=== PATIENT | female | born 1940 | race African-American/Black ===

== ENCOUNTER 2016-06-21 17:38 | Emergency (ER) | payer MEDICARE, BC ==
[~2016-06-21] VITALS: Ht 165.1 cm; Wt 54.4 kg
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
--- NOTE | 2016-06-21 19:22 | NUR ---
TON AT BS.
--- NOTE | 2016-06-21 19:38 | NUR ---
PT TAKEN TO CT.
--- NOTE | 2016-06-21 20:43 | NUR ---
Patient discharged to home in stable condition. Written and verbal after care instructions given. Patient verbalizes understanding of instruction. ambulatory with a steady gait noted. pt family members at bedside to take pt home.
[2016-06-21 20:45] VITALS: BP 137/73
== END 2016-06-21 20:46 | disposition home or self-care (01) ==
LOC: ER 17:47
DX: S06.0X9A Concussion with loss of consciousness of unspecified duration, initial encounter (principal); S20.211A Contusion of right front wall of thorax, initial encounter; S40.011A Contusion of right shoulder, initial encounter; R51 Headache; I10 Essential (primary) hypertension; V49.49XA Driver injured in collision with other motor vehicles in traffic accident, initial encounter; Y93.89 Activity, other specified; Y92.89 Other specified places as the place of occurrence of the external cause; Y99.9 Unspecified external cause status
CPT/HCPCS: 70450-TC; 71010-TC; 73030-TC; A4606; Z7610

== ENCOUNTER 2021-07-06 01:24 | Emergency (ER) | payer BC, MEDICARE, OTHER ==
[~2021-07-06] VITALS: Ht 165.1 cm; Wt 61.2 kg
[2021-07-06 01:38] VITALS: BP 143/70
--- NOTE | 2021-07-06 03:04 | NUR ---
[facility] CALLED FOR BLS TRANPORT BACK HOME PER KOESTEFANIA - ETA OF 30-45 MIN
--- NOTE | 2021-07-06 03:55 | NUR ---
Patient discharged to home in stable condition. Written and verbal after care instructions given. Patient verbalizes understanding of instruction. Picked up by [facility] ambulance for continued oxygen therapy.
== END 2021-07-06 04:02 | disposition home or self-care (01) ==
LOC: ER 01:28
DX: J84.10 Pulmonary fibrosis, unspecified (principal); Z99.81 Dependence on supplemental oxygen

== ENCOUNTER 2021-09-27 12:54 | Inpatient (IN) | payer OTHER ==
[~2021-09-27] VITALS: Ht 162.6 cm; Wt 64.9 kg
[2021-09-27 14:01] LABS: BASOPHILS % (AUTO) 0.3 % (0.0-2.0); HEMATOCRIT 34 % (33-45); HEMOGLOBIN 10.6 g/dL (11.5-14.8); LYMPHOCYTES # (AUTO) 0.6 K/uL (0.8-4.8); LYMPHOCYTES % (AUTO) 11.7 % (20.0-44.0); MEAN CORPUSCULAR HGB CONC 31 g/dl (31.0-36.0); MEAN CORPUSCULAR VOLUME 92 fL (82-100); MONOCYTES # (AUTO) 0.3 K/uL (0.1-1.30); MONOCYTES % (AUTO) 5.7 % (2.0-12.0); NEUTROPHILS # (AUTO) 4.2 K/uL (1.8-8.9); NEUTROPHILS % (AUTO) 79.3 % (43.0-81.0); PLATELET COUNT (AUTO) 128 K/uL (150-450); RED BLOOD CELL COUNT(AUTO) 3.67 MIL/uL (4.0-5.2); WHITE BLOOD COUNT (AUTO) 5.3 K/uL (4.3-11.0)
[2021-09-27 14:12] LABS: CALCIUM, SERUM 8.3 mg/dL (8.5-10.1); CARBON DIOXIDE 23 mmol/L (21-32); CHLORIDE 106 mmol/L (98-107); CREATININE 2.8 mg/dL (0.6-1.3); GLUCOSE 112 mg/dL (74-106); POTASSIUM 4.5 mmol/L (3.5-5.1); SODIUM SERUM 138 mmol/L (136-145); UREA NITROGEN, BLOOD 41 mg/dL (7-18)
--- NOTE | 2021-09-27 14:51 | NUR ---
DAUGHTER BRIANNE AT BEDSIDE. LEFT CONTACT # [phone]
--- NOTE | 2021-09-27 15:11 | NUR ---
COVID SWAB COLLECTED AND SENT TO LAB
[2021-09-27] MEDS ORDERED: FAMO-130 PO (15:19)
[2021-09-27] MEDS ORDERED: BUDE10.2 INH (15:19)
[2021-09-27] MEDS ORDERED: ASPI-1169 PO (15:19)
[2021-09-27] MEDS ORDERED: LATA2.5D15 EACHEYE (15:19)
[2021-09-27] MEDS ORDERED: ATOR40TA PO (15:19)
[2021-09-27] MEDS ORDERED: ALLO100T PO (15:19)
[2021-09-27] MEDS ORDERED: FURO40TA5 PO (15:19)
[2021-09-27] MEDS ORDERED: DOCU-141 PO (15:19)
--- NOTE | 2021-09-27 15:24 | NUR ---
MOVE SHEET SUBMITTED.
[2021-09-27] MEDS ORDERED: FUROSEMIDE 40 MG/4 ML VIAL IV ONE (15:30)
[2021-09-27] MEDS ORDERED: FUROSEMIDE 40 MG/4 ML VIAL ONE (15:33)
[2021-09-27] MEDS ORDERED: ALBUTEROL FS 2.5 MG/0.5 ML VIAL.NEB NEB PRN (17:30)
[2021-09-27] MEDS ORDERED: ONDANSETRON HCL/PF - ER 4 MG/2 ML VIAL IV ONE (17:30)
[2021-09-27] MEDS ORDERED: TRAMADOL HCL 50 MG TABLET PO ONE (17:30)
[2021-09-27] MEDS ORDERED: IPRATROPIUM/ALBUTEROL INHALER IH SCH (18:00)
[2021-09-27] MEDS ORDERED: ONDANSETRON HCL/PF 4 MG/2 ML VIAL ONE (18:32)
[2021-09-27] MEDS ORDERED: TRAMADOL HCL 50 MG TABLET ONE (18:37)
[2021-09-27] MEDS: LATANOPROST EYE DROP 0.005% 2.5 ML BOTTLE EACHEYE SCH (19:05)
[2021-09-27 20:00] VITALS: BP 109/63
--- NOTE | 2021-09-27 21:11 | NUR ---
REPORT GIVEN TO BRII FioreW RN FOR BRIGHT
[2021-09-27] MEDS ORDERED: methylPREDNISolone SOD SUCC 40 MG/ML VIAL ONE (21:14)
[2021-09-27] MEDS ORDERED: HEPARIN SODIUM, PORCINE 5000 UNITS/1 ML VIAL ONE (21:14)
[2021-09-27] MEDS: methylPREDNISolone SOD SUCC 40 MG/ML VIAL IV SCH (21:22)
[2021-09-27] MEDS: HEPARIN SODIUM, PORCINE 5000 UNITS/1 ML VIAL SQ SCH (21:25)
--- NOTE | 2021-09-27 21:30 | NUR ---
RN NOTES; PT RECEIVED FROM ER IN RM 307-1,AOX4 ABLE TO VERBALIZE NEEDS.ON 6L O2 SUPPLEMENT VIA NC PAZ WELL.SATTING 97%,NO SIGN SOB/DISTRESS NOTED.NO COMPLAINE OF PAIN/DISCOMFORT AT THIS TIME.IV ACCESS LFA 20G PATENT AND INTACT.PT WAS REORIENT THE RM AND VERBALLY UNDERSTANDING.SAFETY MEASURED INPLACE.CALL WITHIN REACH.BED LOW AND LOCKED POSITION.CONTINUE TO MONITOR.
--- NOTE | 2021-09-27 21:35 | NUR ---
PT TAKEN TO 307 VIA ACLS PROTOCOL ON O2 6LPM VIA N/C. VSS. ALL BELONGINGS WITH PT.
[2021-09-27] MEDS: ATORVASTATIN 40 MG TABLET PO SCH (22:09)
[2021-09-27] MEDS: ALPRAZOLAM 1 MG TABLET PO PRN (23:44)
[2021-09-28] VITALS: BP 150/81
[2021-09-28 04:33] VITALS: BP 125/71
--- NOTE | 2021-09-28 06:12 | NUR ---
RN CLOSING NOTES; PT IN BED SLEEPING BUT EASY TO AROUSED. AAOX4 ABLE TO VERBALIZE NEEDS.ON 6L O2 SUPPLEMENT VIA NC PAZ WELL.SATTING 96%,NO SIGN SOB/DISTRESS NOTED.NO COMPLAINE OF PAIN/DISCOMFORT DURING SHIFT.DUE MEDS GIVEN ORDERED.ALL NEEDS ATTENDED.IV ACCESS LFA 20G PATENT AND INTACT.SAFETY MEASURED INPLACE.CALL WITHIN REACH.BED LOW AND LOCKED POSITION.HESHAM ENDORSED TO NEXT SHIFT.
[2021-09-28 06:21] LABS: ABG OXYGEN SATURATION 99.3 % (92.0-98.5); ABG PCO2 51.7 mmHg (35.0-45.0); ABG PH 7.329 (7.350-7.450); ABG PO2 337.3 mmHg (75.0-100.0); COHb 0.4 % (0.5-1.5); MetHb 0.3 % (0.0-1.5); O2Hb 98.6 % (94.0-97.0); SITE, ABG Right Radial; VENT MODE, BG Nasal Cannula
--- NOTE | 2021-09-28 07:30 | NUR ---
EARLY CHILDHOOD OPENING NOTES; PATIENT IN BED SLEEPING BUT EASY TO AROUSED.PATIENT IS A/OX4 ABLE TO VERBALIZE NEEDS.ON 6L O2 SUPPLEMENT VIA NC. O2 SAT NOTED 97%,NO SOB/DISTRESS NOTED. ON TELE MONITOR READING SR 60.NO PAIN NOTED.IV ACCESS LFA 20G PATENT AND INTACT.ALL SAFETY MEASURED IN PLACE.CALL WITHIN REACH.BEDIN LOW AND LOCKED POSITION.WILL CONTINUE TO MONITOR.
[2021-09-28 07:36] LABS: BASOPHILS % (AUTO) 0.3 % (0.0-2.0); EOSINOPHILS % (AUTO) 0.2 % (0.0-6.0); HEMATOCRIT 35 % (33-45); HEMOGLOBIN 11.2 g/dL (11.5-14.8); LYMPHOCYTES # (AUTO) 0.4 K/uL (0.8-4.8); LYMPHOCYTES % (AUTO) 10.1 % (20.0-44.0); MEAN CORPUSCULAR HGB CONC 32 g/dl (31.0-36.0); MEAN CORPUSCULAR VOLUME 89 fL (82-100); MONOCYTES # (AUTO) 0.1 K/uL (0.1-1.30); MONOCYTES % (AUTO) 1.5 % (2.0-12.0); NEUTROPHILS # (AUTO) 3.8 K/uL (1.8-8.9); NEUTROPHILS % (AUTO) 87.9 % (43.0-81.0); PLATELET COUNT (AUTO) 158 K/uL (150-450); RED BLOOD CELL COUNT(AUTO) 3.95 MIL/uL (4.0-5.2); WHITE BLOOD COUNT (AUTO) 4.3 K/uL (4.3-11.0)
[2021-09-28 08:02] LABS: ALANINE AMINOTRANSFERASE 23 U/L (12-78); ALBUMIN 3.5 g/dL (3.4-5.0); ALKALINE PHOSPHATASE 70 U/L (46-116); ASPARTATE AMINOTRANSFERASE 20 U/L (15-37); BILIRUBIN,TOTAL 0.5 mg/dL (0.2-1.0); CALCIUM, SERUM 8.7 mg/dL (8.5-10.1); CARBON DIOXIDE 29 mmol/L (21-32); CHLORIDE 106 mmol/L (98-107); CREATININE 3.2 mg/dL (0.6-1.3); GLUCOSE 145 mg/dL (74-106); MAGNESIUM 2.6 mg/dL (1.8-2.4); PHOSPHORUS 5.6 mg/dL (2.5-4.9); POTASSIUM 5.2 mmol/L (3.5-5.1); SODIUM SERUM 141 mmol/L (136-145); TOTAL PROTEIN, SERUM 6.6 g/dL (6.4-8.2); UREA NITROGEN, BLOOD 48 mg/dL (7-18)
[2021-09-28 08:19] VITALS: BP 102/66
[2021-09-28] MEDS: ALBUTEROL FS 2.5 MG/0.5 ML VIAL.NEB NEB SCH ×3 (08:48→19:33)
[2021-09-28] MEDS: IPRATROPIUM NEB FS 0.5 MG/2.5 ML AMPUL.NEB NEB SCH ×3 (08:48→19:32)
[2021-09-28] MEDS ORDERED: FUROSEMIDE 40 MG/4 ML VIAL IV SCH ×2 (09:00→17:00)
[2021-09-28] MEDS: ASPIRIN 81 MG TAB.CHEW PO SCH (09:01)
[2021-09-28] MEDS: ALLOPURINOL 100 MG TABLET PO SCH (09:01)
[2021-09-28] MEDS: HEPARIN SODIUM, PORCINE 5000 UNITS/1 ML VIAL SQ SCH ×2 (09:03→20:56)
[2021-09-28] MEDS: ALPRAZOLAM 1 MG TABLET PO PRN ×2 (09:09→20:24)
[2021-09-28 12:02] VITALS: BP 112/59
[2021-09-28] MEDS: PROMETHAZINE HCL SYRUP 6.25 MG/5 ML UDC PO PRN ×2 (12:07→18:12)
[2021-09-28] MEDS: methylPREDNISolone SOD SUCC 40 MG/ML VIAL IV SCH ×2 (13:45→18:26)
[2021-09-28 16:06] VITALS: BP 125/58
[2021-09-28] MEDS: LATANOPROST EYE DROP 0.005% 2.5 ML BOTTLE EACHEYE SCH (18:08)
--- NOTE | 2021-09-28 18:43 | NUR ---
MAIL PROCESSOR CLOSING NOTES; PATIENT IN BED AWAKE. PATIENT IS A/OX4 ABLE TO VERBALIZE NEEDS.ON 6L O2 SUPPLEMENT VIA NC. O2 SAT NOTED 97%,NO SOB/DISTRESS NOTED. ON TELE MONITOR READING SR 84.NO PAIN NOTED.IV ACCESS LFA 20G PATENT AND INTACT. ALL DUE MEDS GIVEN ORDERED. ALL NEEDS ATTENDED. ALL SAFETY MEASURED IN PLACE.CALL LIGHT WITHIN REACH.BED IN THE LOW AND LOCKED POSITION.WILL ENDORSE FOR BRIGHT.
--- NOTE | 2021-09-28 19:28 | NUR ---
RN OPENING NOTES; RECEIVED PT IN BED AAOX4 ABLE TO VERBALIZE NEEDS.ON 6L O2 SUPPLEMENT VIA NC PAZ WELL.SATTING 95%,NO SIGN SOB/DISTRESS NOTED.NO COMPLAINE OF PAIN/DISCOMFORT AT THIS TIME.IV ACCESS LFA 20G PATENT AND INTACT.SAFETY MEASURED INPLACE.CALL WITHIN REACH.BED LOW AND LOCKED POSITION.HESHAM CONTINUE TO MONITOR.
[2021-09-28] MEDS: MORPHINE SULFATE INJ 2 MG/ML DISP.SYRIN IV PRN (20:45)
[2021-09-28 21:06] VITALS: BP 114/53
--- NOTE | 2021-09-28 21:16 | NUR ---
RN NOTES; PT WAS COMPLAINED OF GENERALIZE BODY PAIN 8.PRN MORPINE 2MG INJ.WAS GIVEN.NO SIGN A/R NOTED.
--- NOTE | 2021-09-28 21:18 | NUR ---
rn notes; pt was complaining of gen,body pain 09/19.pt was relaxing then the family came the pt starting acting out.crying.pt was in the lap of the granddaughter crying.pt no sign sob/distress noted.continue to monitor.
[2021-09-28] MEDS: ATORVASTATIN 40 MG TABLET PO SCH (21:37)
[2021-09-28] MEDS: GUAIFENESIN/CODEINE 10 ML UDC PO PRN (22:51)
[2021-09-29] VITALS (8 sets, daily range): BP systolic 90–133; BP diastolic 46–67
[2021-09-29] MEDS: IPRATROPIUM NEB FS 0.5 MG/2.5 ML AMPUL.NEB NEB SCH ×4 (02:20→20:00)
[2021-09-29] MEDS: ALBUTEROL FS 2.5 MG/0.5 ML VIAL.NEB NEB SCH ×4 (02:20→20:00)
--- NOTE | 2021-09-29 02:27 | NUR ---
RT Pt recvd awake and alert on 4 lpm NC, no sob or respiratory distress noted at this time. neb txs given, pt luis well with no adverse reaction noted.
[2021-09-29] MEDS: methylPREDNISolone SOD SUCC 40 MG/ML VIAL IV SCH ×3 (02:45→18:28)
--- NOTE | 2021-09-29 06:18 | NUR ---
RN CLOSING NOTES; PT IN BED SLEEPING BUT EASY TO AROUSED. AAOX4 ABLE TO VERBALIZE NEEDS.ON 6L O2 SUPPLEMENT VIA NC PAZ WELL.SATTING 95%,NO SIGN SOB/DISTRESS NOTED.PT COMPLAINED OF GENERALIZE BODY PAIN PRN MORPHINE 2MG WAS GIVEN.NO SIGN A/R NOTED..DUE MEDS GIVEN ORDERED.ALL NEEDS ATTENDED.IV ACCESS LFA 20G PATENT AND INTACT.SAFETY MEASURED INPLACE.CALL WITHIN REACH.BED LOW AND LOCKED POSITION.HESHAM ENDORSED TO NEXT SHIFT.
--- NOTE | 2021-09-29 07:22 | NUR ---
INCIDENT RESPONSE LEAD OPENING NOTES PATIENT IN BED SLEEPING BUT EASY TO AROUSED.PATIENT IS A/OX4 ABLE TO VERBALIZE NEEDS.ON 4L O2 SUPPLEMENT VIA NC. O2 SAT NOTED 96%,NO SOB/DISTRESS NOTED. ON TELE MONITOR READING SR 80.NO PAIN NOTED.IV ACCESS LFA 20G PATENT AND INTACT. ALL SAFETY MEASURED IN PLACE.CALL LIGHT WITHIN REACH.BED IN LOW AND LOCKED POSITION. SIDE RAILS UP TIMES 2. BED ALARM ON.WILL CONTINUE TO MONITOR.
[2021-09-29] MEDS: ASPIRIN 81 MG TAB.CHEW PO SCH (09:10)
[2021-09-29] MEDS: ALLOPURINOL 100 MG TABLET PO SCH (09:11)
[2021-09-29] MEDS: HEPARIN SODIUM, PORCINE 5000 UNITS/1 ML VIAL SQ SCH ×2 (09:12→20:52)
[2021-09-29] MEDS: BENZONATATE 100 MG CAPSULE PO PRN ×2 (11:23→22:48)
[2021-09-29] MEDS: ALPRAZOLAM 1 MG TABLET PO PRN ×2 (14:32→22:41)
[2021-09-29] MEDS: PROMETHAZINE HCL SYRUP 6.25 MG/5 ML UDC PO PRN (15:33)
[2021-09-29] MEDS: MORPHINE SULFATE INJ 2 MG/ML DISP.SYRIN IV PRN ×2 (15:55→20:36)
--- NOTE | 2021-09-29 15:55 | NUR ---
RN NOTES MORPHINE GIVEN ORDERED FOR RIBS PAIN AT 1555 . PATIENT CRYING, MOANING .
[2021-09-29] MEDS: LATANOPROST EYE DROP 0.005% 2.5 ML BOTTLE EACHEYE SCH (18:29)
--- NOTE | 2021-09-29 19:20 | NUR ---
RN opening notes Pt is sitting in bed comfortably eating snacks. Pt's daughter at the bedside. Pt is alert and orientedX4. On 4 L NC. No SOB. No S/s of distress noted. tele monitor showed S. tachy hr at 110. IV site at RFA# 24 is clean, intact, flushes well and SL. Safety precautions is maintained. bed at low position, brakes locked, side rails upX3, bed alarm is on, bedside commode at the bedside, hob elevated, and call light is within reach. will continue to monitor.
--- NOTE | 2021-09-29 19:30 | NUR ---
ADMISSIONS COUNSELOR CLOSING NOTES PATIENT IN BED AWAKE DAUGHTER IN BED SIDE.PATIENT IS A/OX4 ABLE TO VERBALIZE NEEDS.ON 4L O2 SUPPLEMENT VIA NC. O2 SAT NOTED 96%,NO SOB/DISTRESS NOTED. ON TELE MONITOR READING SR 70.NO PAIN NOTED.IV ACCESS RFA 22G PATENT AND INTACT. ALL DUE MEDS GIVEN ORDERED. ALL NEEDS ATTENDED. ALL SAFETY MEASURED IN PLACE.CALL LIGHT WITHIN REACH.BED IN LOW AND LOCKED POSITION. SIDE RAILS UP TIMES 2. BED ALARM ON.WILL ENDORSE FOR BRIGHT.
--- NOTE | 2021-09-29 20:42 | NUR ---
RN notes Pt is complaining of pain on her rib 10/10 on pain scale. Administered morphine 2 mg/iv/prn as ordered. VS is stable. safety precautions is maintained. will continue to monitor.
[2021-09-29] MEDS: ATORVASTATIN 40 MG TABLET PO SCH (21:03)
--- NOTE | 2021-09-29 22:43 | NUR ---
RN notes Pt is feeling anxious and requesting med. administered xanax 1 mg/1 tab/po/prn as ordered per Pt's request. safety precautions is maintained. will continue to monitor.
--- NOTE | 2021-09-29 22:51 | NUR ---
RN notes Pt is complaining of cough and requesting med. administered tessalon 100mg/po/prn as ordered per Pt request. safety precautions is maintained. will continue to monitor.
[2021-09-30] VITALS (8 sets, daily range): BP systolic 119–145; BP diastolic 66–89
[2021-09-30] MEDS: methylPREDNISolone SOD SUCC 40 MG/ML VIAL IV SCH ×2 (01:58→09:54)
[2021-09-30] MEDS: ALBUTEROL FS 2.5 MG/0.5 ML VIAL.NEB NEB SCH ×4 (02:38→20:06)
[2021-09-30] MEDS: IPRATROPIUM NEB FS 0.5 MG/2.5 ML AMPUL.NEB NEB SCH ×4 (02:38→20:06)
--- NOTE | 2021-09-30 06:43 | NUR ---
RN closing notes Pt is resting in bed comfortably. Pt is alert and orientedX4. On 4 L NC. No SOB. No S/s of distress noted. tele monitor showed SR hr at 70. IV site at RFA# 24 is clean, intact, flushes well and SL. Routine meds were given as ordered. Kept Pt clean, dry and comfortable. Safety precautions is maintained. bed at low position, brakes locked, side rails upX3, bed alarm is on, bedside commode at the bedside, hob elevated, and call light is within reach. Will endorse to am nurse for BRIGHT.
--- NOTE | 2021-09-30 08:04 | NUR ---
SOCIAL WORK PROFESSOR OPENING NOTES RECEIVED PATIENT AWAKE IN BED.PATIENT IS A/OX4 ABLE TO VERBALIZE NEEDS.ON 4L O2 SUPPLEMENT VIA NC. O2 SAT NOTED 100%,NO SOB/DISTRESS NOTED. ON TELE MONITOR READING SR 70.NO PAIN NOTED.IV ACCESS RFA 24G PATENT AND INTACT. ALL SAFETY MEASURED IN PLACE.CALL LIGHT WITHIN REACH.BED IN LOW AND LOCKED POSITION. SIDE RAILS UP TIMES 2. BED ALARM ON.WILL CONTINUE TO MONITOR.
[2021-09-30] MEDS: ASPIRIN 81 MG TAB.CHEW PO SCH (08:21)
[2021-09-30] MEDS: ALLOPURINOL 100 MG TABLET PO SCH (08:21)
[2021-09-30] MEDS: HEPARIN SODIUM, PORCINE 5000 UNITS/1 ML VIAL SQ SCH ×2 (08:23→21:20)
[2021-09-30] MEDS: ALPRAZOLAM 1 MG TABLET PO PRN ×2 (08:34→21:23)
[2021-09-30 09:40] LABS: MAGNESIUM 2.2 mg/dL (1.8-2.4)
[2021-09-30 12:53] LABS: ALANINE AMINOTRANSFERASE 26 U/L (12-78); ALBUMIN 3.4 g/dL (3.4-5.0); ALKALINE PHOSPHATASE 68 U/L (46-116); ASPARTATE AMINOTRANSFERASE 38 U/L (15-37); BILIRUBIN,TOTAL 0.3 mg/dL (0.2-1.0); CALCIUM, SERUM 8.2 mg/dL (8.5-10.1); CARBON DIOXIDE 24 mmol/L (21-32); CHLORIDE 102 mmol/L (98-107); CREATININE 1.9 mg/dL (0.6-1.3); GLUCOSE 192 mg/dL (74-106); POTASSIUM 4.7 mmol/L (3.5-5.1); SODIUM SERUM 137 mmol/L (136-145); TOTAL PROTEIN, SERUM 6.5 g/dL (6.4-8.2); UREA NITROGEN, BLOOD 36 mg/dL (7-18)
[2021-09-30] MEDS: BENZONATATE 100 MG CAPSULE PO PRN (16:38)
[2021-09-30] MEDS: LATANOPROST EYE DROP 0.005% 2.5 ML BOTTLE EACHEYE SCH (17:19)
--- NOTE | 2021-09-30 19:04 | NUR ---
WINDOWS 7 DEPLOYMENT LEAD CLOSING NOTES PATIENT AWAKE IN BED.PATIENT IS A/OX4 ABLE TO VERBALIZE NEEDS.ON 4L O2 SUPPLEMENT VIA NC. O2 SAT NOTED 100%,NO SOB/DISTRESS NOTED. ON TELE MONITOR READING SR 70.NO PAIN NOTED.IV ACCESS RFA 24G PATENT AND INTACT. ALL DUE MEDS GIVEN ORDERED. ALL SAFETY MEASURED IN PLACE.CALL LIGHT WITHIN REACH.BED IN LOW AND LOCKED POSITION. SIDE RAILS UP TIMES 2. BED ALARM ON.WILL ENDORSE FOR BRIGHT.
--- NOTE | 2021-09-30 19:45 | NUR ---
MS RN NOTES RECEIVED ON BED A/O X4,WITH SLIGHT SHORTNESS OF BREATH NOTED,O2 SAT 91% ON 4L.RT AT BEDSIDE TO ADMINISTER BREATHING TREATMENT SCHEDULED..ASSIST WITH ADLS'.FALL RISK,BED ON LOWEST POSITION AND LOCKED,SALINE LOCK RFA INTACT AND PATENT..CALL LIGHT IN REACH,NEEDS ANTICIPATED.
[2021-09-30] MEDS: ATORVASTATIN 40 MG TABLET PO SCH (21:20)
--- NOTE | 2021-09-30 21:23 | NUR ---
MS RN NOTES APPEARS ANXIOUS,XANAX 1MG PO GIVEN ORDERED FOR ANXIETY
--- NOTE | 2021-10-01 | NUR ---
MS RN NOTES SLEEPING THIS TIME
[2021-10-01] MEDS: ALBUTEROL FS 2.5 MG/0.5 ML VIAL.NEB NEB SCH ×4 (02:18→20:37)
[2021-10-01] MEDS: IPRATROPIUM NEB FS 0.5 MG/2.5 ML AMPUL.NEB NEB SCH ×4 (02:18→20:37)
--- NOTE | 2021-10-01 03:15 | NUR ---
MS RN NOTES AWAKE,USING BEDSIDE COMMODE,COUGHING.
--- NOTE | 2021-10-01 03:20 | NUR ---
MS RN NOTES MEDICATED WITH PHENERGAN 10ML PO ORDERED FOR COUGH
[2021-10-01] MEDS: PROMETHAZINE HCL SYRUP 6.25 MG/5 ML UDC PO PRN (03:42)
--- NOTE | 2021-10-01 05:00 | NUR ---
MS RN NOTES SLEEPING,KEPT WARM AND COMFORTABLE.
[2021-10-01 05:50] LABS: BASOPHILS % (AUTO) 0.1 % (0.0-2.0); HEMATOCRIT 33 % (33-45); HEMOGLOBIN 10.4 g/dL (11.5-14.8); LYMPHOCYTES # (AUTO) 0.7 K/uL (0.8-4.8); LYMPHOCYTES % (AUTO) 6.7 % (20.0-44.0); MEAN CORPUSCULAR HGB CONC 32 g/dl (31.0-36.0); MEAN CORPUSCULAR VOLUME 90 fL (82-100); MONOCYTES # (AUTO) 1.2 K/uL (0.1-1.30); MONOCYTES % (AUTO) 10.5 % (2.0-12.0); NEUTROPHILS # (AUTO) 9.1 K/uL (1.8-8.9); NEUTROPHILS % (AUTO) 82.7 % (43.0-81.0); PLATELET COUNT (AUTO) 171 K/uL (150-450); RED BLOOD CELL COUNT(AUTO) 3.65 MIL/uL (4.0-5.2)
[2021-10-01 06:17] LABS: CALCIUM, SERUM 8.3 mg/dL (8.5-10.1); CARBON DIOXIDE 31 mmol/L (21-32); CHLORIDE 105 mmol/L (98-107); CREATININE 1.6 mg/dL (0.6-1.3); GLUCOSE 148 mg/dL (74-106); MAGNESIUM 2.1 mg/dL (1.8-2.4); PHOSPHORUS 1.9 mg/dL (2.5-4.9); POTASSIUM 4.1 mmol/L (3.5-5.1); SODIUM SERUM 140 mmol/L (136-145); UREA NITROGEN, BLOOD 34 mg/dL (7-18)
--- NOTE | 2021-10-01 06:53 | NUR ---
MS RN NOTES STILL WITH EPISODE OF EXERTIONAL SHORTNESS OF BREATH,COUGH AT TIMES.MANAGE WITH O2 , BREATHING TREATMENT SCHEDULED AND COUGH MEDICINE ORDERED.DNR/DNI STATUS.CALL LIGHT IN REACH,NEEDS ATTENDED.
--- NOTE | 2021-10-01 07:28 | NUR ---
RN OPENING NOTE PATIENT ASLEEP IN BED. EASILY AWAKENED. PATIENT IS A/OX4 ABLE TO VERBALIZE NEEDS. ON 4L O2 VIA NC. O2 SAT NOTED 100%, DENIES PAIN, .IV ACCESS RFA 24G PATENT AND INTACT. ALL SAFETY MEASURED IN PLACE.CALL LIGHT WITHIN REACH.BED IN LOW AND LOCKED POSITION. SIDE RAILS UP TIMES 2. BED ALARM ON.WILL CONTINUE TO MONITOR / ASSIST
[2021-10-01 08:00] VITALS: BP 129/72
[2021-10-01] MEDS: ASPIRIN 81 MG TAB.CHEW PO SCH (08:49)
[2021-10-01] MEDS: ALLOPURINOL 100 MG TABLET PO SCH (08:49)
[2021-10-01] MEDS: HEPARIN SODIUM, PORCINE 5000 UNITS/1 ML VIAL SQ SCH ×2 (08:50→21:39)
[2021-10-01] MEDS: ONDANSETRON HCL/PF 4 MG/2 ML VIAL IVP PRN (09:23)
[2021-10-01] MEDS: ALPRAZOLAM 1 MG TABLET PO PRN (09:23)
[2021-10-01] MEDS: predniSONE 20 MG TABLET PO SCH (10:20)
[2021-10-01] MEDS ORDERED: K PHOS NEUTRAL 250 MG TABLET PO ONE (11:00)
[2021-10-01] MEDS: GUAIFENESIN/CODEINE 10 ML UDC PO PRN (14:57)
[2021-10-01 16:00] VITALS: BP 141/75
[2021-10-01] MEDS: PSYLLIUM SEED 1 PKT PACKET PO SCH (16:07)
[2021-10-01] MEDS: LATANOPROST EYE DROP 0.005% 2.5 ML BOTTLE EACHEYE SCH (17:22)
--- NOTE | 2021-10-01 18:49 | NUR ---
RN CLOSING NOTE PATIENT ASLEEP IN BED. EASILY AWAKENED. PATIENT IS A/OX4 ABLE TO VERBALIZE NEEDS. ON 4L O2 VIA NC. O2 SAT NOTED 100%, DENIES PAIN, .IV ACCESS RFA 24G PATENT AND INTACT. DYSPNEA TODAY, COUGH, PRENATAL TEACHER WILLOW ADDED PREDNISONE TO MEDICATION REGIMEN. COUGH SYRUP GIVEN TO DECREASE COUGH EFFECTIVELY. ALL SAFETY MEASURED IN PLACE.CALL LIGHT WITHIN REACH.BED IN LOW AND LOCKED POSITION. SIDE RAILS UP TIMES 2. BED ALARM ON.WILL CONTINUE TO MONITOR / ASSIST
--- NOTE | 2021-10-01 19:30 | NUR ---
MS RN OPENING NOTE RECEIVED PATIENT AWAKE IN BED. DAUGHTER AT BEDSIDE. A/OX4 ABLE TO VERBALIZE NEEDS. PT ON 4L O2 VIA NC. NOTED WITH COUGH. DENIES PAIN OR DISCOMFORT. IV ACCESS RFA 24G PATENT AND INTACT. SAFETY PRECAUTIONS IN PLACE. BED IN LOWEST LOCKED POSITION, HOB ELEVATED, SIDE RAILS UP X2, AND CALL LIGHT AND TABLE WITHIN REACH. ALL NEEDS MET AT THIS TIME.
[2021-10-01 20:00] VITALS: BP 120/62
[2021-10-01] MEDS: DOCUSATE SODIUM 100 MG CAPSULE PO SCH (21:38)
[2021-10-01] MEDS: ATORVASTATIN 40 MG TABLET PO SCH (21:38)
[2021-10-01] MEDS: BENZONATATE 100 MG CAPSULE PO PRN (23:49)
--- NOTE | 2021-10-02 | NUR ---
RN NOTE PT COMPLAINING OF COUGH AND REQUESTED TESSALON LAUREEN. ADMINISTERED MEDICATION ORDERED FOR COUGH. MADE COMFORTABLE IN BED. ALL NEEDS MET AT THIS TIME.
[2021-10-02] MEDS: ALPRAZOLAM 1 MG TABLET PO PRN ×2 (00:24→22:08)
[2021-10-02] MEDS: ONDANSETRON HCL/PF 4 MG/2 ML VIAL IVP PRN (00:33)
[2021-10-02] MEDS: ALBUTEROL FS 2.5 MG/0.5 ML VIAL.NEB NEB SCH ×4 (01:04→20:10)
[2021-10-02] MEDS: IPRATROPIUM NEB FS 0.5 MG/2.5 ML AMPUL.NEB NEB SCH ×4 (01:04→20:10)
--- NOTE | 2021-10-02 01:51 | NUR ---
RN NOTE NOTED PT BREATHING HEAVILY, TRIPODING, AND IN RESPIRATORY DISTRESS. PATIENT CURRENTLY ON 5LPM VIA NASAL CANULA, AND INCREASED TO 6LPM, 02 SATURATION ASSESSED, PATIENT SATTING 83%, LUNG SOUNDS AUSCULTATED, BILATERAL LOWER LUNG SOUNDS DIMINISHED; CHARGE NURSE MADE AWARE; PATIENT GIVEN XANAX PER PATIENT REQUEST; PATIENT ALSO COMPLAINT OF NAUSEA, ZOFRAN ADMINISTERED PER MD ORDER; 02 SATURATION RE-ASSESSED, 02 SAT 90% AFTER INCREASING TO 6LPM; PATIENT ALSO INSTRUCTED AND ENCOURAGED TO DO DEEP BREATHING; PATIENT VERBALIZED UNDERSTANDING; RT NOTIFIED; SCHEDULED BREATHING TREATMENT ADMINISTERED AT THIS TIME; STAT CHEST XRAY ORDERED AND RESULTED; E COMMERCE PROJECT MANAGER SEMI CONDUCTOR ASSEMBLERFABIÁN NOTIFIED, PER SEMI CONDUCTOR ASSEMBLER FABIÁN ADMINISTER LASIX 40MG IV PUSH ONCE; AWAITING FOR MED TO BE VERIFIED THROUGH PHARMACY; ORDERS RECEIVED AND CARRIED OUT.
[2021-10-02] MEDS ORDERED: FUROSEMIDE 40 MG/4 ML VIAL IV ONE (02:00)
--- NOTE | 2021-10-02 02:32 | NUR ---
RN NOTE ADMINISTERED LASIX 40 MG ONCE ORDERED. VS: BP 127/70, HR 105, R 20, TEMP 98.1, AND O2 SAT 94% ON 6 LPM.
[2021-10-02 06:29] LABS: BASOPHILS % (AUTO) 0.1 % (0.0-2.0); HEMATOCRIT 34 % (33-45); HEMOGLOBIN 10.6 g/dL (11.5-14.8); LYMPHOCYTES # (AUTO) 0.9 K/uL (0.8-4.8); LYMPHOCYTES % (AUTO) 6.8 % (20.0-44.0); MEAN CORPUSCULAR HGB CONC 31 g/dl (31.0-36.0); MEAN CORPUSCULAR VOLUME 89 fL (82-100); MONOCYTES # (AUTO) 1.2 K/uL (0.1-1.30); NEUTROPHILS # (AUTO) 11.6 K/uL (1.8-8.9); NEUTROPHILS % (AUTO) 84.1 % (43.0-81.0); PLATELET COUNT (AUTO) 173 K/uL (150-450); RED BLOOD CELL COUNT(AUTO) 3.78 MIL/uL (4.0-5.2); WHITE BLOOD COUNT (AUTO) 13.8 K/uL (4.3-11.0)
--- NOTE | 2021-10-02 06:58 | NUR ---
MS RN CLOSING NOTE PATIENT RESTING IN BED, VERBALLY RESPONSIVE. A/OX4 AND ABLE TO VERBALIZE NEEDS. PT ON 6L O2 VIA NC, SATURATING 99%. NO S/S OF RESPIRATORY DISTRESS AT THIS TIME. NOTED WITH COUGH, COVID TEST ORDERED, SENT TO LAB. DENIES PAIN OR DISCOMFORT AT THIS TIME. IV ACCESS RFA 24G PATENT AND INTACT. ALL DUE MEDS GIVEN ORDERED. SAFETY PRECAUTIONS IN PLACE AT ALL TIMES. BED IN LOWEST LOCKED POSITION, HOB ELEVATED, SIDE RAILS UP X2, AND CALL LIGHT AND TABLE WITHIN REACH. ALL NEEDS MET AT THIS TIME AND WILL ENDORSE TO ONCOMING NURSE FOR BRIGHT.
--- NOTE | 2021-10-02 07:00 | NUR ---
MS RN OPENING NOTES RECEIVED PATIENT SLEEPING IN BED, ON 6L OXYGEN VIA NC, NO S/S OF RESPIRATORY DISTRESS OR SOB. PATIENT IS VERBALLY RESPONSIVE A/Ox4. PATIENT HAS IV ACCESS RFA #24 G SL. INTACT AND PATENT, NO S/S OF INFILTRATION. PATIENT USES BEDSIDE COMMODE, NEEDS ASSISTANCE. SKIN IS INTACT. SAFETY MEASURES IN PLACE: BED LOCKED AND IN LOWEST POSITION, SIDE RAILS x2, BED ALARM ON, CALL LIGHT WITHIN REACH. WILL CONTINUE TO MONITOR.
[2021-10-02 07:07] LABS: CALCIUM, SERUM 8.1 mg/dL (8.5-10.1); CARBON DIOXIDE 32 mmol/L (21-32); CHLORIDE 103 mmol/L (98-107); CREATININE 1.5 mg/dL (0.6-1.3); GLUCOSE 110 mg/dL (74-106); MAGNESIUM 1.8 mg/dL (1.8-2.4); PHOSPHORUS 2.6 mg/dL (2.5-4.9); POTASSIUM 3.8 mmol/L (3.5-5.1); SODIUM SERUM 140 mmol/L (136-145); UREA NITROGEN, BLOOD 27 mg/dL (7-18)
[2021-10-02 08:00] VITALS: BP 121/76
[2021-10-02] MEDS: ASPIRIN 81 MG TAB.CHEW PO SCH (09:37)
[2021-10-02] MEDS: PSYLLIUM SEED 1 PKT PACKET PO SCH (09:37)
[2021-10-02] MEDS: predniSONE 20 MG TABLET PO SCH (09:37)
[2021-10-02] MEDS: ALLOPURINOL 100 MG TABLET PO SCH (09:37)
[2021-10-02] MEDS: DOCUSATE SODIUM 100 MG CAPSULE PO SCH (09:37)
[2021-10-02] MEDS: HEPARIN SODIUM, PORCINE 5000 UNITS/1 ML VIAL SQ SCH ×2 (09:53→21:10)
[2021-10-02] MEDS: LATANOPROST EYE DROP 0.005% 2.5 ML BOTTLE EACHEYE SCH (17:58)
--- NOTE | 2021-10-02 18:47 | NUR ---
MS RN CLOSING NOTES PATIENT RESTING BED, STABLE ON 5L OXYGEN VIA NC, NO S/S OF RESPIRATORY DISTRESS OR SOB. PATIENT IS VERBALLY RESPONSIVE A/Ox4. PATIENT HAS IV ACCESS RFA #24 G SL. INTACT AND PATENT, NO S/S OF INFILTRATION. PATIENT USES BEDSIDE COMMODE, NEEDS ASSISTANCE. ALL PRESCRIBED MEDICATION ADMINISTERED. SKIN IS INTACT. SAFETY MEASURES MAINTAINED: BED LOCKED AND IN LOWEST POSITION, SIDE RAILS x2, BED ALARM ON, CALL LIGHT WITHIN REACH. WILL CONTINUE TO MONITOR.
--- NOTE | 2021-10-02 19:40 | NUR ---
MS RN OPENING NOTES RECEIVED PATIENT RESTING IN BED; AWAKE, ALERT AND ORIENTED X4. ON OXYGEN INHALATION @ 5LPM VIA NASAL CANNULA; TOLERATING WELL. BREATHING EVEN AND NONLABORED. NOT IN ANY FORM OF RESPIRATORY DISTRESS. DENIES ANY PAIN OR DISCOMFORT AT THIS TIME. WITH IV ACCESS ON RIGHT FOREARM 24G; PATENT, INTACT AND SALINE LOCKED. ABLE TO MAKE NEEDS KNOWN. FALL AND SAFETY MEASURES IMPLEMENTED: CALL LIGHT AND TABLE WITHIN EASY REACH, SIDE RAILS UP X2, BED IN LOWEST LOCKED POSITION. WILL CONTINUE TO MONITOR.
[2021-10-02 20:00] VITALS: BP 129/72
[2021-10-02] MEDS: ATORVASTATIN 40 MG TABLET PO SCH (21:08)
--- NOTE | 2021-10-02 22:08 | NUR ---
MS RN NOTE PT IS ANXIOUS, AGITATED AND REQUESTED XANAX. PRN ALPRAZOLAM 1MG GIVEN PO ORDERED. MADE COMFORTABLE IN BED. ALL NEEDS MET AT THIS TIME.
[2021-10-03] MEDS: IPRATROPIUM NEB FS 0.5 MG/2.5 ML AMPUL.NEB NEB SCH ×4 (01:30→19:57)
[2021-10-03] MEDS: ALBUTEROL FS 2.5 MG/0.5 ML VIAL.NEB NEB SCH ×4 (01:30→19:57)
--- NOTE | 2021-10-03 06:58 | NUR ---
MS RN CLOSING NOTES PATIENT REMAINS IN BED; AWAKE, A/O X4. ON OXYGEN INHALATION @ 5LPM VIA NASAL CANNULA; TOLERATING WELL. NO S/SX OF RESPIRATORY DISTRESS. NO C/O PAIN OR DISCOMFORT AT THIS TIME. WITH IV ACCESS ON RIGHT FOREARM 24G; PATENT, INTACT AND SALINE LOCKED. NO S/SX OF INFILTRATION NOTED. ALL NEEDS MET AT THIS TIME. FALL AND SAFETY MEASURES MAINTAINED: BED IN LOWEST LOCKED POSITION, SIDE RAILS UP X2, CALL LIGHT AND TABLE WITHIN REACH. WILL ENDORSE TO MORNING SHIFT FOR CONTINUITY OF CARE
[2021-10-03 07:28] LABS: EOSINOPHILS % (AUTO) 0.4 % (0.0-6.0); HEMATOCRIT 31 % (33-45); HEMOGLOBIN 10.1 g/dL (11.5-14.8); LYMPHOCYTES # (AUTO) 1.2 K/uL (0.8-4.8); LYMPHOCYTES % (AUTO) 10.7 % (20.0-44.0); MEAN CORPUSCULAR HGB CONC 32 g/dl (31.0-36.0); MEAN CORPUSCULAR VOLUME 89 fL (82-100); MONOCYTES # (AUTO) 0.9 K/uL (0.1-1.30); MONOCYTES % (AUTO) 7.7 % (2.0-12.0); NEUTROPHILS % (AUTO) 81.2 % (43.0-81.0); PLATELET COUNT (AUTO) 153 K/uL (150-450); RED BLOOD CELL COUNT(AUTO) 3.52 MIL/uL (4.0-5.2); WHITE BLOOD COUNT (AUTO) 11.1 K/uL (4.3-11.0)
--- NOTE | 2021-10-03 07:35 | NUR ---
MS RN OPENING NOTE RECEIVED PT AWAKE IN BED. PT IS A/O X4, ABLE TO MAKE NEEDS KNOWN. PT ON O2 AT 5L VIA NASAL CANNULA, TOLERATING WELL. NO SOB NOTED AT THIS TIME. NOT IN ANY SIGN OF RESPIRATORY DISTRESS. IV ACCESS IN RFA G #24 SALINE LOCK, INTACT AND PATENT. SAFETY MEASURES IN PLACE: BED IN LOWEST AND LOCKED POSITION, BED ALARM ON, SIDE RAILS UPX2, AND CALL LIGHT WITHIN REACH. WILL CONTINUE TO MONITOR PT.
[2021-10-03 08:00] VITALS: BP 135/69
[2021-10-03 08:46] LABS: CALCIUM, SERUM 8.3 mg/dL (8.5-10.1); CREATININE 1.3 mg/dL (0.6-1.3); MAGNESIUM 1.8 mg/dL (1.8-2.4); PHOSPHORUS 2.7 mg/dL (2.5-4.9); POTASSIUM 4.1 mmol/L (3.5-5.1)
[2021-10-03] MEDS: HEPARIN SODIUM, PORCINE 5000 UNITS/1 ML VIAL SQ SCH ×3 (09:00→21:11)
[2021-10-03] MEDS: ALLOPURINOL 100 MG TABLET PO SCH (09:26)
[2021-10-03] MEDS: predniSONE 20 MG TABLET PO SCH (09:26)
[2021-10-03] MEDS: DOCUSATE SODIUM 100 MG CAPSULE PO SCH (09:26)
[2021-10-03] MEDS: PSYLLIUM SEED 1 PKT PACKET PO SCH (09:27)
[2021-10-03] MEDS: ASPIRIN 81 MG TAB.CHEW PO SCH (09:27)
--- NOTE | 2021-10-03 09:41 | NUR ---
RN NOTE PT REFUSED HEPARIN SQ MEDICATION SCHEDULED AT 0900. EXPLAINED RISK AND BENEFITS X3, STILL STRONGLY REFUSED.
[2021-10-03] MEDS: ACETAMINOPHEN 325 MG TABLET PO PRN (10:02)
[2021-10-03 12:52] LABS: ABG OXYGEN SATURATION 92.9 % (92.0-98.5); ABG PCO2 42.3 mmHg (35.0-45.0); ABG PH 7.432 (7.350-7.450); ABG PO2 63.2 mmHg (75.0-100.0); AaDO2 173.4 mmHg; COHb 0.6 % (0.5-1.5); MetHb 0.2 % (0.0-1.5); O2Hb 92.2 % (94.0-97.0); SITE, ABG Right Radial; VENT MODE, BG NASAL CANNULA
[2021-10-03] MEDS: BENZONATATE 100 MG CAPSULE PO PRN (14:18)
--- NOTE | 2021-10-03 14:19 | NUR ---
RN NOTE PT C/O COUGHING AND REQUESTED FOR TESSALON MEDICATION. TESSALON 100MG 1 CAP PO GIVEN ORDERED PRN Q4HR FOR COUGH. WILL CONTINUE TO MONITOR AND REASSESS PT.
[2021-10-03 16:00] VITALS: BP 120/68
[2021-10-03] MEDS: LATANOPROST EYE DROP 0.005% 2.5 ML BOTTLE EACHEYE SCH (18:37)
--- NOTE | 2021-10-03 19:01 | NUR ---
MS RN CLOSING NOTE PT AWAKE IN BED. PT IS A/O X4, ABLE TO MAKE NEEDS KNOWN. PT ON O2 AT 5L VIA NASAL CANNULA, TOLERATING WELL. NO SOB NOTED AT THIS TIME. NOT IN ANY SIGN OF RESPIRATORY DISTRESS. IV ACCESS IN RFA G #24 SALINE LOCK, INTACT AND PATENT. ALL NEEDS ATTNENDED KEPT CLEAN AND COMFORTABLE. SAFETY MEASURES IN PLACE: BED IN LOWEST AND LOCKED POSITION, BED ALARM ON, SIDE RAILS UPX2, AND CALL LIGHT WITHIN REACH. WILL ENDORSE TO QA MANAGER NURSE FOR BRIGHT.
--- NOTE | 2021-10-03 19:30 | NUR ---
RN OPENING NOTE PATIENT IS IN BED, SITTING UP. PATIENT IS A/O X 4 AT THIS TIME, ABLE TO MAKE NEEDS KNOWN. PATIENT IS ON 6 LPM AT THIS TIME WITH 97% O2 SATURATION. PATIENT DOES NOT REPORT ANY DYSPNEA, NO SOB NOTED. PATIENT DOES NOT REPORT ANY PAIN AT THIS TIME, NO APPARENT DISTRESS. PATIENT HAS A RFA 24 G SALINE LOCKED AT THIS TIME. SAFETY MEASURES IN PLACE: BED LOCKED AND IN LOWEST POSITION, CALL LIGHT WITHIN REACH, SIDE RAILS UP. WILL MONITOR PATIENT CLOSELY.
[2021-10-03 20:00] VITALS: BP 130/66
[2021-10-03] MEDS: ALPRAZOLAM 1 MG TABLET PO PRN (20:42)
--- NOTE | 2021-10-03 20:45 | NUR ---
RN NOTE PATIENT CRYING HYSTERICALLY STATES THAT SHE CAN'T DO IT ANYMORE. THERAPEUTIC COMMUNICATION APPLIED AND XANAX 0.5 MG GIVEN.
[2021-10-03] MEDS: ATORVASTATIN 40 MG TABLET PO SCH (21:09)
[2021-10-04] MEDS: BENZONATATE 100 MG CAPSULE PO PRN (00:13)
--- NOTE | 2021-10-04 00:13 | NUR ---
RN NOTE TESANNIEON PERLE ADMINISTERED FOR PATIENT'S COUGH. PATIENT INITIALLY REQUESTED PHENERGAN BUT MED NOT AVAILABLE IN UNIT WELL OTHER UNITS PER CHARGE NURSE AND NURSING OCCUPATIONAL THERAPY SPECIALIST.
[2021-10-04] MEDS: ACETAMINOPHEN 325 MG TABLET PO PRN ×2 (01:17→16:05)
[2021-10-04] MEDS: ALBUTEROL FS 2.5 MG/0.5 ML VIAL.NEB NEB SCH ×4 (01:19→21:00)
[2021-10-04] MEDS: IPRATROPIUM NEB FS 0.5 MG/2.5 ML AMPUL.NEB NEB SCH ×4 (01:19→21:00)
--- NOTE | 2021-10-04 07:05 | NUR ---
MS RN OPENING NOTES RECEIVED PATIENT SLEEPING IN BED, ON 6L OXYGEN VIA NC, NO S/S OF RESPIRATORY DISTRESS OR SOB. PATIENT IS VERBALLY RESPONSIVE A/Ox4. PATIENT HAS IV ACCESS RFA #24 G SL. INTACT AND PATENT, NO S/S OF INFILTRATION. PATIENT USES BEDSIDE COMMODE, NEEDS ASSISTANCE. SKIN IS INTACT. SAFETY MEASURES IN PLACE: BED LOCKED AND IN LOWEST POSITION, SIDE RAILS x2, BED ALARM ON, HOB ELEVATED, CALL LIGHT WITHIN REACH. WILL CONTINUE TO MONITOR.
--- NOTE | 2021-10-04 07:23 | NUR ---
RN CLOSING NOTE PATIENT IS IN BED, AWAKE, PATIENT IS A/O X 4 AT THIS TIME, ABLE TO MAKE NEEDS KNOWN. PATIENT IS ON 6 LPM AT THIS TIME WITH 93-97% O2 SATURATION. TOLERATING WELL. NO APPARENT DISTRESS. PATIENT HAS A RFA 24 G SALINE LOCKED AT THIS TIME. SAFETY MEASURES IN PLACE: BED LOCKED AND IN LOWEST POSITION, CALL LIGHT WITHIN REACH, SIDE RAILS UP. ALL NEEDS MET AND ATTENDED. ALL ORDERS CARRIED OUT. ENDORSED TO DAY SHIFT NURSE FOR BRIGHT.
[2021-10-04 07:33] LABS: HEMATOCRIT 31 % (33-45); HEMOGLOBIN 9.8 g/dL (11.5-14.8); LYMPHOCYTES # (AUTO) 1.4 K/uL (0.8-4.8); MEAN CORPUSCULAR HGB CONC 32 g/dl (31.0-36.0); MEAN CORPUSCULAR VOLUME 90 fL (82-100); MONOCYTES # (AUTO) 0.9 K/uL (0.1-1.30); MONOCYTES % (AUTO) 7.8 % (2.0-12.0); NEUTROPHILS # (AUTO) 8.5 K/uL (1.8-8.9); NEUTROPHILS % (AUTO) 77.2 % (43.0-81.0); PLATELET COUNT (AUTO) 156 K/uL (150-450); RED BLOOD CELL COUNT(AUTO) 3.46 MIL/uL (4.0-5.2)
[2021-10-04 08:00] VITALS: BP 133/69
[2021-10-04 08:00] LABS: CALCIUM, SERUM 8.2 mg/dL (8.5-10.1); CREATININE 1.3 mg/dL (0.6-1.3); MAGNESIUM 1.7 mg/dL (1.8-2.4); PHOSPHORUS 3.8 mg/dL (2.5-4.9)
[2021-10-04] MEDS: ASPIRIN 81 MG TAB.CHEW PO SCH (09:00)
[2021-10-04] MEDS: DOCUSATE SODIUM 100 MG CAPSULE PO SCH (09:00)
[2021-10-04] MEDS: ALLOPURINOL 100 MG TABLET PO SCH (09:00)
[2021-10-04] MEDS: predniSONE 20 MG TABLET PO SCH (09:01)
[2021-10-04] MEDS: PSYLLIUM SEED 1 PKT PACKET PO SCH (09:01)
[2021-10-04] MEDS: HEPARIN SODIUM, PORCINE 5000 UNITS/1 ML VIAL SQ SCH ×2 (09:04→21:00)
[2021-10-04] MEDS ORDERED: MAGNESIUM OXIDE 400 MG TABLET PO ONE (10:00)
[2021-10-04] MEDS: methylPREDNISolone SOD SUCC 125 MG/2ML VIAL IV SCH ×2 (15:26→21:36)
[2021-10-04 16:00] VITALS: BP 131/74
[2021-10-04] MEDS: LEVOFLOXACIN 750 MG /D5W 150ML 150 ML IV SCH (16:16)
--- NOTE | 2021-10-04 18:33 | NUR ---
MS RN CLOSING NOTES PATIENT WATCHING TV IN BED, STABLE ON 5L OXYGEN VIA NC, NO S/S OF RESPIRATORY DISTRESS OR SOB. PATIENT IS VERBALLY RESPONSIVE A/Ox4. PATIENT HAS IV ACCESS FRANDY #22 G SL. INTACT AND PATENT, NO S/S OF INFILTRATION. PATIENT USES BEDSIDE COMMODE, NEEDS ASSISTANCE. SKIN IS INTACT. ALL PRESCRIBED MEDICATION ADMINISTERED. SAFETY MEASURES MAINTAINED: BED LOCKED AND IN LOWEST POSITION, SIDE RAILS x2, BED ALARM ON, HOB ELEVATED, CALL LIGHT WITHIN REACH. WILL ENDORSE TO NEXT SHIFT ANY BRIGHT.
--- NOTE | 2021-10-04 19:30 | NUR ---
MS RN OPENING NOTES RECEIVED PATIENT RESTING IN BED; AWAKE, ALERT AND ORIENTED X4; VERBALLY RESPONSIVE. ON OXYGEN INHALATION @ 5LPM VIA NASAL CANNULA; TOLERATING WELL. RESPIRATION EVEN AND UNLABORED. NOT IN ANY FORM OF RESPIRATORY DISTRESS. NO COMPLAINTS OF PAIN OR DISCOMFORT AT THIS TIME. WITH IV ACCESS ON RIGHT UPPER ARM 22G; PATENT, INTACT AND SALINE LOCKED. ABLE TO MAKE NEEDS KNOWN. FALL AND SAFETY MEASURES IMPLEMENTED: CALL LIGHT AND TABLE WITHIN EASY REACH, SIDE RAILS UP X2, BED IN LOWEST LOCKED POSITION. WILL CONTINUE TO MONITOR.
[2021-10-04 20:00] VITALS: BP 130/69
--- NOTE | 2021-10-04 21:04 | NUR ---
RN NOTES HEPARIN SODIUM 5,000 UNITS HELD PER PATIENT'S REQUEST.
[2021-10-04] MEDS: ATORVASTATIN 40 MG TABLET PO SCH (21:37)
[2021-10-04] MEDS: LATANOPROST EYE DROP 0.005% 2.5 ML BOTTLE EACHEYE SCH (21:52)
[2021-10-05] MEDS: ALPRAZOLAM 1 MG TABLET PO PRN ×3 (00:28→21:11)
[2021-10-05] MEDS: IPRATROPIUM NEB FS 0.5 MG/2.5 ML AMPUL.NEB NEB SCH ×4 (01:51→20:10)
[2021-10-05] MEDS: ALBUTEROL FS 2.5 MG/0.5 ML VIAL.NEB NEB SCH ×4 (01:51→20:10)
[2021-10-05] MEDS: methylPREDNISolone SOD SUCC 125 MG/2ML VIAL IV SCH ×3 (05:49→20:27)
[2021-10-05] MEDS: BENZONATATE 100 MG CAPSULE PO PRN ×3 (06:03→22:52)
[2021-10-05 06:09] LABS: BASOPHILS % (AUTO) 0.1 % (0.0-2.0); HEMATOCRIT 34 % (33-45); HEMOGLOBIN 10.9 g/dL (11.5-14.8); LYMPHOCYTES # (AUTO) 0.6 K/uL (0.8-4.8); LYMPHOCYTES % (AUTO) 5.6 % (20.0-44.0); MEAN CORPUSCULAR HGB CONC 32 g/dl (31.0-36.0); MEAN CORPUSCULAR VOLUME 89 fL (82-100); MONOCYTES # (AUTO) 0.2 K/uL (0.1-1.30); MONOCYTES % (AUTO) 1.6 % (2.0-12.0); NEUTROPHILS % (AUTO) 92.7 % (43.0-81.0); PLATELET COUNT (AUTO) 187 K/uL (150-450); RED BLOOD CELL COUNT(AUTO) 3.83 MIL/uL (4.0-5.2); WHITE BLOOD COUNT (AUTO) 10.8 K/uL (4.3-11.0)
[2021-10-05 06:55] LABS: CALCIUM, SERUM 8.5 mg/dL (8.5-10.1); CREATININE 1.3 mg/dL (0.6-1.3); MAGNESIUM 1.9 mg/dL (1.8-2.4); PHOSPHORUS 3.7 mg/dL (2.5-4.9); POTASSIUM 4.4 mmol/L (3.5-5.1)
--- NOTE | 2021-10-05 07:05 | NUR ---
MS RN CLOSING NOTES PATIENT RESTING IN BED; AWAKE, A/O X4; VERBALLY RESPONSIVE. ON OXYGEN INHALATION @ 5LPM VIA NASAL CANNULA; WELL TOLERATED. BREATHING EVEN AND UNLABORED. NOT IN ANY FORM OF RESPIRATORY DISTRESS. NO C/O PAIN OR DISCOMFORT AT THIS TIME. WITH IV ACCESS ON FARNDY 22G; PATENT, INTACT AND SALINE LOCKED. ALL DUE MEDS GIVEN. FALL AND SAFETY MEASURES IN PLACE: HOB ELEVATED, CALL LIGHT AND TABLE WITHIN EASY REACH, SIDE RAILS UP X2, BED IN LOWEST LOCKED POSITION. ENDORSED TO MORNING SHIFT FOR BRIGHT.
--- NOTE | 2021-10-05 07:30 | NUR ---
RN Opening Note Received report from RN, pt AOx4, able to express her concerns, Patient is crying, asked if she needed something from me, pt asked for space "Ignore me, dont pay attention when I cry" offered help, pt refused. Patients VSS and on O2, IV patent no signs of infiltration, no pain reported. Will continue to monitor throughout shift, all safety precautions taken, call light and table within reach, bed at lowest position. Will administer medications as prescribed.
[2021-10-05 08:00] VITALS: BP 124/86
[2021-10-05] MEDS: ALLOPURINOL 100 MG TABLET PO SCH (08:53)
[2021-10-05] MEDS: ASPIRIN 81 MG TAB.CHEW PO SCH (08:53)
[2021-10-05] MEDS: HEPARIN SODIUM, PORCINE 5000 UNITS/1 ML VIAL SQ SCH ×2 (08:57→21:00)
[2021-10-05] MEDS ORDERED: GUAIFENESIN/CODEINE 10 ML UDC PO PRN (11:00)
[2021-10-05] MEDS: ACETAMINOPHEN 325 MG TABLET PO PRN ×3 (11:15→20:31)
[2021-10-05] MEDS: GUAIFENESIN 300 MG/15 ML UDC PO PRN (11:32)
[2021-10-05 16:00] VITALS: BP 127/73
--- NOTE | 2021-10-05 18:59 | NUR ---
RN Closing Note PT AOx4, able to express her own concerns. Patient has been crying throughout shift, and states she wants the door open "I don't need to hear what's going on out there". Patient was educated on importance of using call light and making her needs known. Monitored patient throughout shift and administered medications as prescribed. Pt does not want medications opened for her, requesting to do it herself. Stayed while administering and offer assistance. Patient remained safe throughout shift, O2 delivered as prescribed.All safety precautions taken, call light and table within reach, bed at lowest position.
--- NOTE | 2021-10-05 19:30 | NUR ---
MS RN OPENING NOTES RECEIVED PATIENT LAYING IN BED; AWAKE, ALERT AND ORIENTED X4. ON OXYGEN INHALATION @ 5LPM VIA NASAL CANNULA; TOLERATING WELL. BREATHING EVENLY AND NONLABORED. NOT IN ANY FORM OF RESPIRATORY DISTRESS. DENIES ANY PAIN OR DISCOMFORT AT THIS TIME. WITH RIGHT UPPER ARM 22G IV ACCESS; PATENT, INTACT AND SALINE LOCKED. NO INFILTRATION NOTED. ABLE TO MAKE NEEDS KNOWN. SAFETY AND FALL PRECAUTIONS IMPLEMENTED: CALL LIGHT AND TABLE WITHIN EASY REACH, SIDE RAILS UP X2, BED IN LOWEST LOCKED POSITION. WILL CONTINUE PLAN OF CARE.
[2021-10-05 20:00] VITALS: BP 154/91
[2021-10-05] MEDS: PSYLLIUM SEED 1 PKT PACKET PO SCH (20:27)
[2021-10-05] MEDS: DOCUSATE SODIUM 100 MG CAPSULE PO SCH (20:27)
--- NOTE | 2021-10-05 20:57 | NUR ---
RN NOTES HEPARIN SODIUM 5,000 UNITS HELD PER PATIENT'S REQUEST.
[2021-10-05] MEDS: ATORVASTATIN 40 MG TABLET PO SCH (21:10)
[2021-10-05] MEDS: LATANOPROST EYE DROP 0.005% 2.5 ML BOTTLE EACHEYE SCH (21:19)
[2021-10-06] MEDS: IPRATROPIUM NEB FS 0.5 MG/2.5 ML AMPUL.NEB NEB SCH ×4 (01:33→19:31)
[2021-10-06] MEDS: ALBUTEROL FS 2.5 MG/0.5 ML VIAL.NEB NEB SCH ×4 (01:33→19:31)
[2021-10-06] MEDS: methylPREDNISolone SOD SUCC 125 MG/2ML VIAL IV SCH ×3 (04:29→21:35)
[2021-10-06] MEDS: BENZONATATE 100 MG CAPSULE PO PRN (04:29)
[2021-10-06 06:33] LABS: BASOPHILS % (AUTO) 0.1 % (0.0-2.0); HEMATOCRIT 35 % (33-45); LYMPHOCYTES # (AUTO) 0.6 K/uL (0.8-4.8); LYMPHOCYTES % (AUTO) 4.4 % (20.0-44.0); MEAN CORPUSCULAR HGB CONC 32 g/dl (31.0-36.0); MEAN CORPUSCULAR VOLUME 88 fL (82-100); MONOCYTES # (AUTO) 0.3 K/uL (0.1-1.30); MONOCYTES % (AUTO) 2.1 % (2.0-12.0); NEUTROPHILS # (AUTO) 12.6 K/uL (1.8-8.9); NEUTROPHILS % (AUTO) 93.4 % (43.0-81.0); PLATELET COUNT (AUTO) 207 K/uL (150-450); RED BLOOD CELL COUNT(AUTO) 3.91 MIL/uL (4.0-5.2); WHITE BLOOD COUNT (AUTO) 13.4 K/uL (4.3-11.0)
--- NOTE | 2021-10-06 06:50 | NUR ---
MS RN CLOSING NOTES PATIENT IN BED; AWAKE, A/O X4. WITH STABLE VS. STILL ON O2 INHALATION @ 5LPM VIA NASAL CANNULA; WELL TOLERATED. WITH NONLABORED AND EVEN RESPIRATION. IN NO ACUTE DISTRESS. NO C/O PAIN OR DISCOMFORT AT THIS TIME. FRANDY 22G IV ACCESS; PATENT, INTACT AND SALINE LOCKED. NO INFILTRATION NOTED. ALL NEEDS MET AT THIS TIME. ALL DUE MEDS GIVEN ORDERED. SAFETY AND FALL MEASURES IN PLACE: BED IN LOWEST LOCKED POSITION, SIDE RAILS UP X2, CALL LIGHT AND TABLE WITHIN EASY REACH. ENDORSED TO MORNING SHIFT FOR BRIGHT.
[2021-10-06 06:51] LABS: CALCIUM, SERUM 8.5 mg/dL (8.5-10.1); CREATININE 1.3 mg/dL (0.6-1.3); PHOSPHORUS 4.1 mg/dL (2.5-4.9); POTASSIUM 4.2 mmol/L (3.5-5.1)
--- NOTE | 2021-10-06 07:00 | NUR ---
MS RN OPENING NOTE PATIENT LAYING IN BED, A/O X 4, ABLE TO MAKE NEEDS KNOWN. TOLERATING WELL ON 5 LPM O2 VIA NASAL CANNULA WITH NO S/S RESPIRATORY DISTRESS AT THIS TIME. FRANDY # 22 G SL CLEAN, INTACT, AND FLUSHING WELL. NO COMPLAINTS OF PAIN OR DISCOMFORT AT THIS TIME. SAFETY MEASURES IN PLACE: BED IN LOWEST LOCKED POSITION, SIDE RAILS UP X 2, CALL LIGHT WITHIN REACH. WILL CONTINUE TO MONITOR.
[2021-10-06 08:00] VITALS: BP 126/74
[2021-10-06] MEDS: ASPIRIN 81 MG TAB.CHEW PO SCH (08:21)
[2021-10-06] MEDS: ALLOPURINOL 100 MG TABLET PO SCH (08:21)
[2021-10-06] MEDS: HEPARIN SODIUM, PORCINE 5000 UNITS/1 ML VIAL SQ SCH ×3 (08:24→21:00)
[2021-10-06] MEDS: ALPRAZOLAM 1 MG TABLET PO PRN ×2 (10:47→21:37)
[2021-10-06] MEDS: GUAIFENESIN 300 MG/15 ML UDC PO PRN (12:17)
[2021-10-06] MEDS: LEVOFLOXACIN 750 MG /D5W 150ML 150 ML IV SCH (14:23)
[2021-10-06 16:00] VITALS: BP 143/87
--- NOTE | 2021-10-06 20:00 | NUR ---
RECEIVED PATIENT IN BED, ALERT/ORIENTED X4, 5LPM VIA NC, SPO2 100%, DRY COUGH, HIGH FLORES'S POSITION, BM X1, EATING DINNER, FAMILY AT THE BEDSIDE, WILL CONTINUE TO MONITOR.
[2021-10-06 20:26] VITALS: BP 132/78
[2021-10-06] MEDS: DOCUSATE SODIUM 100 MG CAPSULE PO SCH (20:55)
[2021-10-06] MEDS: PSYLLIUM SEED 1 PKT PACKET PO SCH (20:57)
--- NOTE | 2021-10-06 21:07 | NUR ---
PATIENT REFUSED HEPARIN AT 2100. PER PATIENT, ONLY WANTS HEPARIN ONCE PER DAY
--- NOTE | 2021-10-06 21:39 | NUR ---
RT NOTE FOUND PT ON 5LPM NC, HUMIDIFIED. TX GIVEN. NO S/S OF RESPIRATORY DISTRESS NOTED. NO SOB NOTED. PT STATED TO NOT WAKE HER FOR THE NEXT TREATMENT. ONLY GIVE IT TO HER WHILE SHES IS AWAKE
[2021-10-06] MEDS: ATORVASTATIN 40 MG TABLET PO SCH (21:53)
[2021-10-06] MEDS: LATANOPROST EYE DROP 0.005% 2.5 ML BOTTLE EACHEYE SCH (21:54)
[2021-10-07] MEDS: BENZONATATE 100 MG CAPSULE PO PRN (01:00)
[2021-10-07] MEDS: ALBUTEROL FS 2.5 MG/0.5 ML VIAL.NEB NEB SCH ×4 (01:14→20:23)
[2021-10-07] MEDS: IPRATROPIUM NEB FS 0.5 MG/2.5 ML AMPUL.NEB NEB SCH ×4 (01:14→20:23)
[2021-10-07] MEDS: methylPREDNISolone SOD SUCC 125 MG/2ML VIAL IV SCH (04:43)
--- NOTE | 2021-10-07 06:37 | NUR ---
ALERT/ORIENTED X4, 5LPM VIA NC, DRY COUGH, ANXIOUS, NO COMPLAIN OF PAIN, USES BSC TO VOID, BM X1, GENERALIZED WEAKNESS, GIVEN TESSALON LAUREEN FOR COUGH, XANAX AT BEDTIME. CONTINUE STEROIDS, PULMONARY REHAB WHEN STABLE FOR DISCHARGE, ENCOURAGE PO INTAKE, MAY EAT FOOD FROM HOME OR FOOD PREFERENCES.
--- NOTE | 2021-10-07 07:35 | NUR ---
RN OPENING NOTE PATIENT AWAKE IN BED RESTING. A/O X 4. NO PAIN NOTED AT THIS TIME. ON 5L OXYGEN VIA NC, NO DISTRESS OR SHORTNESS OF BREATH NOTED. IV ACCESS LAC #22G, INTACT, PATENT AND FLUSHING WELL. FALL AND SAFETY MEASURES IN PLACE, BED ALARM ON, BED IN LOW AND LOCK POSITION, CALL LIGHT AND TABLE WITHIN EASY REACH, SIDE RAILS UP X2. WILL CONTINUE TO MONITOR.
[2021-10-07 07:37] LABS: HEMATOCRIT 35 % (33-45); HEMOGLOBIN 11.2 g/dL (11.5-14.8); LYMPHOCYTES # (AUTO) 0.5 K/uL (0.8-4.8); LYMPHOCYTES % (AUTO) 4.7 % (20.0-44.0); MEAN CORPUSCULAR HGB CONC 32 g/dl (31.0-36.0); MEAN CORPUSCULAR VOLUME 88 fL (82-100); MONOCYTES # (AUTO) 0.2 K/uL (0.1-1.30); MONOCYTES % (AUTO) 1.7 % (2.0-12.0); NEUTROPHILS # (AUTO) 10.2 K/uL (1.8-8.9); NEUTROPHILS % (AUTO) 93.6 % (43.0-81.0); PLATELET COUNT (AUTO) 201 K/uL (150-450); RED BLOOD CELL COUNT(AUTO) 3.94 MIL/uL (4.0-5.2); WHITE BLOOD COUNT (AUTO) 10.9 K/uL (4.3-11.0)
[2021-10-07 07:46] LABS: CALCIUM, SERUM 8.3 mg/dL (8.5-10.1); CARBON DIOXIDE 27 mmol/L (21-32); CHLORIDE 103 mmol/L (98-107); CREATININE 1.4 mg/dL (0.6-1.3); GLUCOSE 139 mg/dL (74-106); MAGNESIUM 2.2 mg/dL (1.8-2.4); PHOSPHORUS 4.8 mg/dL (2.5-4.9); SODIUM SERUM 140 mmol/L (136-145); UREA NITROGEN, BLOOD 34 mg/dL (7-18)
[2021-10-07 08:16] LABS: ABG BASE EXCESS 1.6 mmol/L; ABG OXYGEN SATURATION 95.3 % (92.0-98.5); ABG PCO2 39.1 mmHg (35.0-45.0); ABG PH 7.437 (7.350-7.450); ABG PO2 79.3 mmHg (75.0-100.0); AaDO2 160.9 mmHg; COHb 0.5 % (0.5-1.5); MetHb 0.2 % (0.0-1.5); O2Hb 94.6 % (94.0-97.0); SITE, ABG Right Radial; VENT MODE, BG 5 LPM NC
[2021-10-07] MEDS: ALLOPURINOL 100 MG TABLET PO SCH (09:14)
[2021-10-07] MEDS: ASPIRIN 81 MG TAB.CHEW PO SCH (09:14)
[2021-10-07] MEDS: HEPARIN SODIUM, PORCINE 5000 UNITS/1 ML VIAL SQ SCH ×3 (09:15→21:09)
[2021-10-07] MEDS: ALPRAZOLAM 1 MG TABLET PO PRN ×2 (13:39→21:38)
[2021-10-07] MEDS: methylPREDNISolone SOD SUCC 40 MG/ML VIAL IV SCH ×2 (13:43→21:07)
--- NOTE | 2021-10-07 19:40 | NUR ---
RN CLOSING NOTE PATIENT AWAKE IN BED RESTING. A/O X 4. NO PAIN NOTED AT THIS TIME. ON 5L OXYGEN VIA NC, NO DISTRESS OR SHORTNESS OF BREATH NOTED. IV ACCESS LAC #22G, INTACT, PATENT AND FLUSHING WELL. FALL AND SAFETY MEASURES IN PLACE, BED ALARM ON, BED IN LOW AND LOCK POSITION, CALL LIGHT AND TABLE WITHIN EASY REACH, SIDE RAILS UP X2. DURING THE SHIFT PATIENT GOT VERY UPSET BECAUSE SOMEONE REMOVED A CHAIR FROM HER ROOM, THE DVT FELL ON THE FLOOR WHEN SHE GOT UP FROM THE BED, PATIENT NOT HAPPY WITH CARE, APOLOGIES WERE OFFER TO PATIENT, THE DVT WAS CHANGED COMPLETELY, CHARGE NURSE AWARE, WILL ENDORSE TO PROCESS LINE OPERATOR.
--- NOTE | 2021-10-07 19:45 | NUR ---
MS RN OPENING NOTE RECEIVED PATIENT AWAKE IN BED. A/O X 4. NO COMPLAINTS OF PAIN NOTED AT THIS TIME. ON 5L OXYGEN VIA NC, NO DISTRESS OR SHORTNESS OF BREATH NOTED. IV ACCESS LAC #22G, INTACT, PATENT AND FLUSHING WELL. FALL AND SAFETY MEASURES IN PLACE, BED IN LOWEST AND LOCKED POSITION, CALL LIGHT AND TABLE WITHIN EASY REACH, SIDE RAILS UP X2. ASSITED PATIENT TO BEDSIDE COMMODE, FAMILY MEMBER AT BEDSIDE, WILL CONTINUE TO MONITOR CLOSELY THROUGHOUT THE SHIFT.
[2021-10-07 20:00] VITALS: BP 126/95
--- NOTE | 2021-10-07 20:40 | NUR ---
RT Received pt on 5L NC with humidifier. No respiratory distress or SOB, but occasional dry non productive cough. SPO2 95% on assessment. Breathing tx given and tolerated with no adverse reaction.
[2021-10-07] MEDS: PSYLLIUM SEED 1 PKT PACKET PO SCH (21:07)
[2021-10-07] MEDS: DOCUSATE SODIUM 100 MG CAPSULE PO SCH (21:07)
[2021-10-07] MEDS: LATANOPROST EYE DROP 0.005% 2.5 ML BOTTLE EACHEYE SCH (21:07)
[2021-10-07] MEDS: ATORVASTATIN 40 MG TABLET PO SCH (21:07)
[2021-10-07 22:00] VITALS: BP 126/95
[2021-10-08] MEDS: ALBUTEROL FS 2.5 MG/0.5 ML VIAL.NEB NEB SCH ×4 (01:46→20:25)
[2021-10-08] MEDS: IPRATROPIUM NEB FS 0.5 MG/2.5 ML AMPUL.NEB NEB SCH ×4 (01:46→20:25)
[2021-10-08] MEDS: methylPREDNISolone SOD SUCC 40 MG/ML VIAL IV SCH ×3 (04:12→21:09)
--- NOTE | 2021-10-08 06:48 | NUR ---
MS RN CLOSING NOTE PATIENT RESTING IN BED. A/O X 4. ABLE TO MAKE NEEDS KNOWN. ON 5L O2 VIA NC, NO DISTRESS OR SHORTNESS OF BREATH NOTED. NO COMPLAINTS OF PAIN. IV ACCESS LAC #22G, INTACT, PATENT AND FLUSHING WELL. FALL AND SAFETY MEASURES IN PLACE, ALL DUE MEDS GIVEN, ASSISTED PATIENT TO BEDSIDE COMMODE,BED IN LOWEST AND LOCKED POSITION, CALL LIGHT AND TABLE WITHIN EASY REACH, SIDE RAILS UP X2. WILL ENDORSE TO AM SHIFT NURSE.
[2021-10-08 07:04] LABS: CALCIUM, SERUM 8.2 mg/dL (8.5-10.1); CREATININE 1.3 mg/dL (0.6-1.3); MAGNESIUM 2.1 mg/dL (1.8-2.4); PHOSPHORUS 4.4 mg/dL (2.5-4.9); POTASSIUM 4.1 mmol/L (3.5-5.1)
[2021-10-08 07:09] LABS: BASOPHILS % (AUTO) 0.2 % (0.0-2.0); EOSINOPHILS % (AUTO) 0.1 % (0.0-6.0); HEMATOCRIT 34 % (33-45); HEMOGLOBIN 10.9 g/dL (11.5-14.8); LYMPHOCYTES # (AUTO) 0.6 K/uL (0.8-4.8); LYMPHOCYTES % (AUTO) 6.3 % (20.0-44.0); MEAN CORPUSCULAR HGB CONC 32 g/dl (31.0-36.0); MEAN CORPUSCULAR VOLUME 88 fL (82-100); MONOCYTES # (AUTO) 0.4 K/uL (0.1-1.30); MONOCYTES % (AUTO) 3.6 % (2.0-12.0); NEUTROPHILS # (AUTO) 8.9 K/uL (1.8-8.9); NEUTROPHILS % (AUTO) 89.8 % (43.0-81.0); PLATELET COUNT (AUTO) 188 K/uL (150-450); RED BLOOD CELL COUNT(AUTO) 3.81 MIL/uL (4.0-5.2); WHITE BLOOD COUNT (AUTO) 9.9 K/uL (4.3-11.0)
--- NOTE | 2021-10-08 07:48 | NUR ---
RN OPENING NOTE PATIENT RECEIVED IN BED AND AWAKE. A/O X4. NO C/O OF PAIN OR RESPIRATORY DISTRESS DURING ASSESSMENT. NO SOB OR ANXIETY OBSERVED. IV ACCESS TO LAC INTACT AND PATENT, NO S/SX OF INFILTRATION. SAFETY MEASURES INTACT WITH BED IN LOWEST POSITION AND LOCKED. SIDERAIL UPX2, CALL LIGHT WITHIN REACH. WILL CONTINUE TO MONITOR.
[2021-10-08 08:00] VITALS: BP 145/81
[2021-10-08] MEDS: ALLOPURINOL 100 MG TABLET PO SCH (08:25)
[2021-10-08] MEDS: HEPARIN SODIUM, PORCINE 5000 UNITS/1 ML VIAL SQ SCH ×2 (08:25→20:41)
[2021-10-08] MEDS: ASPIRIN 81 MG TAB.CHEW PO SCH (08:25)
--- NOTE | 2021-10-08 08:48 | NUR ---
RT RECEIVED PT AWAKE AND ALERT. PT IS ON 5L NC WITH HUMIDIFIER. SLIGHT RESPIRATORY DISTRESS AND SOB UPON ASSESSMENT. SPO2 100%. BREATHING TX GIVEN AND TOLERATED.
[2021-10-08] MEDS: ALPRAZOLAM 1 MG TABLET PO PRN ×2 (10:50→20:29)
[2021-10-08] MEDS: BENZONATATE 100 MG CAPSULE PO PRN ×2 (10:50→21:31)
[2021-10-08] MEDS: GUAIFENESIN 300 MG/15 ML UDC PO PRN (12:28)
--- NOTE | 2021-10-08 15:36 | NUR ---
BLOOD GAS NOT DONE TIME TO DUE PATIENT FOUND ON 5 L O2 INSTEAD OF ON 3 L O2. SO TITRATE TO 3L O2 AND GIVE TIME BEFORE ABG. Addendum: 10/08/21 at 1538 by GIANLUCA HENDERSON RT Amended: Links added.
[2021-10-08] MEDS: LEVOFLOXACIN (250MG) 250 MG TABLET PO SCH (15:52)
[2021-10-08 16:00] VITALS: BP 116/76
[2021-10-08 16:05] LABS: ABG BASE EXCESS 2.7 mmol/L; ABG OXYGEN SATURATION 97.2 % (92.0-98.5); ABG PCO2 39.8 mmHg (35.0-45.0); ABG PH 7.447 (7.350-7.450); ABG PO2 97.6 mmHg (75.0-100.0); COHb 0.7 % (0.5-1.5); MetHb 0.2 % (0.0-1.5); O2Hb 96.3 % (94.0-97.0); SITE, ABG Left Radial; VENT MODE, BG 3 L NC ON HUMIDIFIER
--- NOTE | 2021-10-08 18:08 | NUR ---
RN CLOSING NOTE PATIENT REMAINED IN BED AND AWAKE; A/O X4. C/O ANXIETY WELL COUGHING ON SHIFT. RECEIVED XANAX @ GEORGE LAUREEN @ 1050 AND KATHLEEN @ 4980. ALL MEDICATIONS EFFECTIVE. PATIENT IV ACCESS TO LAC BECAME DISLODGED ON SHIFT. REPLACED WITH HEPLOCK TO THEO 20G. INTACT AND PATENT. PATIENT TOLERATED BEDSIDE PROCEDURE WELL. OXYGEN LEVEL DECREASED TO 2L PER PELEG'S ORDERS. TOLERATED DECREASE WELL. . SAFETY MEASURES REMAIN INTACT WITH BED IN LOWEST POSITION AND LOCKED. SIDERAIL UPX2, CALL LIGHT WITHIN REACH. WILL CONTINUE TO MONITOR
--- NOTE | 2021-10-08 19:39 | NUR ---
RN OPENING NOTES RECEIVED PT IN BED, AWAKE, SITTING AT BEDSIDE. AOx4, ABLE TO MAKE NEEDS KNOWN. ON NC 3LPM AND TOLERATING WELL. NO SOB NOTED. NO S/SX OF RESPIRATORY DISTRESS NOTED. IV ACCESS IN THEO #20G. IV IS INTACT, PATENT, AND FLUSHING WELL. SAFETY PRECAUTIONS IN PLACE: BED IN LOWEST, LOCKED POSITION, SIDERAILS UPx2, AND BRAKES ON. TABLE AND CALL LIGHT WITHIN REACH. WILL CONTINUE TO MONITOR.
[2021-10-08 20:00] VITALS: BP 114/81
--- NOTE | 2021-10-08 20:29 | NUR ---
RN NOTES ADMINISTERED XANAX FOR ANXIETY PER PT REQUEST.
--- NOTE | 2021-10-08 20:41 | NUR ---
RN NOTES PATIENT REFUSED HEPARIN STATED "SHE WILL NOT TAKE IT TWICE A DAY."
[2021-10-08] MEDS: PSYLLIUM SEED 1 PKT PACKET PO SCH (21:09)
[2021-10-08] MEDS: DOCUSATE SODIUM 100 MG CAPSULE PO SCH (21:09)
[2021-10-08] MEDS: ATORVASTATIN 40 MG TABLET PO SCH (21:09)
[2021-10-08] MEDS: LATANOPROST EYE DROP 0.005% 2.5 ML BOTTLE EACHEYE SCH (21:10)
[2021-10-09] MEDS: IPRATROPIUM NEB FS 0.5 MG/2.5 ML AMPUL.NEB NEB SCH ×4 (01:55→20:15)
[2021-10-09] MEDS: ALBUTEROL FS 2.5 MG/0.5 ML VIAL.NEB NEB SCH ×4 (01:55→20:15)
[2021-10-09] MEDS: methylPREDNISolone SOD SUCC 40 MG/ML VIAL IV SCH ×2 (05:01→14:01)
--- NOTE | 2021-10-09 07:30 | NUR ---
RN OPENING NOTE PATIENT RECEIVED IN BED AND AWAKE. A/O X4. C/O DISTRESS AND ANXIETY DURING MORNING ASSESSMENT. WILL FOLLOW UP WITH PRN MEDICATION. IV ACCESS TO THEO INTACT AND PATENT, NO S/SX OF INFILTRATION. SAFETY MEASURES INTACT WITH BED IN LOWEST POSITION AND LOCKED. SIDERAIL UPX2, CALL LIGHT WITHIN REACH. WILL CONTINUE TO MONITOR.
[2021-10-09 07:59] LABS: CARBON DIOXIDE 28 mmol/L (21-32); CHLORIDE 104 mmol/L (98-107); CREATININE 1.2 mg/dL (0.6-1.3); GLUCOSE 122 mg/dL (74-106); PHOSPHORUS 3.5 mg/dL (2.5-4.9); POTASSIUM 4.2 mmol/L (3.5-5.1); SODIUM SERUM 138 mmol/L (136-145); UREA NITROGEN, BLOOD 33 mg/dL (7-18)
[2021-10-09 08:00] VITALS: BP 147/93
[2021-10-09] MEDS: ALPRAZOLAM 1 MG TABLET PO PRN ×2 (09:05→19:35)
[2021-10-09] MEDS: ALLOPURINOL 100 MG TABLET PO SCH (09:05)
[2021-10-09] MEDS: ASPIRIN 81 MG TAB.CHEW PO SCH (09:05)
[2021-10-09] MEDS: GUAIFENESIN 300 MG/15 ML UDC PO PRN (09:06)
[2021-10-09 09:11] LABS: BASOPHILS % (AUTO) 0.1 % (0.0-2.0); HEMATOCRIT 34 % (33-45); HEMOGLOBIN 10.6 g/dL (11.5-14.8); LYMPHOCYTES # (AUTO) 0.6 K/uL (0.8-4.8); LYMPHOCYTES % (AUTO) 4.8 % (20.0-44.0); MEAN CORPUSCULAR HGB CONC 32 g/dl (31.0-36.0); MEAN CORPUSCULAR VOLUME 88 fL (82-100); MONOCYTES # (AUTO) 0.5 K/uL (0.1-1.30); MONOCYTES % (AUTO) 4.4 % (2.0-12.0); NEUTROPHILS # (AUTO) 11.1 K/uL (1.8-8.9); NEUTROPHILS % (AUTO) 90.7 % (43.0-81.0); PLATELET COUNT (AUTO) 177 K/uL (150-450); RED BLOOD CELL COUNT(AUTO) 3.81 MIL/uL (4.0-5.2); WHITE BLOOD COUNT (AUTO) 12.3 K/uL (4.3-11.0)
[2021-10-09] MEDS: BENZONATATE 100 MG CAPSULE PO PRN (14:00)
[2021-10-09 16:00] VITALS: BP 128/82
--- NOTE | 2021-10-09 18:03 | NUR ---
RN CLOSING NOTE PATIENT REMAINED IN BED AND AWAKE; A/O X4. HAD C/O ANXIETY WELL COUGHING ON SHIFT. RECEIVED XANAX & ROBITUSSIN @ 0950 & GEORGE TAMEZE @ 1400. ALL MEDICATIONS EFFECTIVE. PATIENT ALSO RECEIVED SCHEDULED BREATHING TREATMENTS BEDSIDE FROM RT. TOLERATED WELL. PATIENT IV ACCESS TO THEO REMAINS INTACT AND PATENT. OXYGEN INTAKE REMAINS @ 2L. CONTINUES TO TOLERATE. SAFETY MEASURES REMAIN INTACT WITH BED IN LOWEST POSITION AND LOCKED. SIDERAIL UPX2, CALL LIGHT WITHIN REACH. WILL CONTINUE TO MONITOR
--- NOTE | 2021-10-09 19:51 | NUR ---
RN OPENING NOTE PATIENT IN BED AND AWAKE; A/O X4. PT GIVEN PRN XANAX AT THIS TIME PT AGITATED AND ABUSIVE TOWARDS STAFF AT THIS TIME. DAUGHTER AT BEDSIDE AT THIS TIME. ALL NEEDS MET AT THIS TIME.PATIENT IV ACCESS TO THEO REMAINS INTACT AND PATENT. OXYGEN @ 2L TOLERATING WELL. CONTINUES TO TOLERATE. SAFETY MEASURES REMAIN INTACT WITH BED IN LOWEST POSITION AND LOCKED. SIDERAIL UPX2, CALL LIGHT WITHIN REACH.
[2021-10-09 20:00] VITALS: BP 148/80
[2021-10-09] MEDS: DOCUSATE SODIUM 100 MG CAPSULE PO SCH (21:32)
[2021-10-09] MEDS: LATANOPROST EYE DROP 0.005% 2.5 ML BOTTLE EACHEYE SCH (21:33)
[2021-10-09] MEDS: PSYLLIUM SEED 1 PKT PACKET PO SCH (21:33)
[2021-10-09] MEDS: ATORVASTATIN 40 MG TABLET PO SCH (21:33)
[2021-10-10] MEDS: IPRATROPIUM NEB FS 0.5 MG/2.5 ML AMPUL.NEB NEB SCH ×4 (02:07→20:03)
[2021-10-10] MEDS: ALBUTEROL FS 2.5 MG/0.5 ML VIAL.NEB NEB SCH ×4 (02:07→20:03)
--- NOTE | 2021-10-10 06:40 | NUR ---
RN CLOSING NOTE PATIENT IN BED ASLEEP. ALL NEEDS MET AT THIS TIME.PATIENT IV ACCESS TO THEO REMAINS INTACT AND PATENT. OXYGEN @ 2L TOLERATING WELL. CONTINUES TO TOLERATE. SAFETY MEASURES REMAIN INTACT WITH BED IN LOWEST POSITION AND LOCKED. SIDERAIL UPX2, CALL LIGHT WITHIN REACH. BED IN LOWEST POSITION WILL ENDORSE TO DAY SHIFT NURSE FOR CONTINUITY OF CARE.
--- NOTE | 2021-10-10 07:30 | NUR ---
RN OPENING NOTE PATIENT IN BED AND AWAKE; A/O X4. NO PAIN NOTED. NO SOB NOTED. NO DISTRESS NOTED. PATIENT IV ACCESS TO THEO REMAINS INTACT AND PATENT. OXYGEN @ 2L TOLERATING WELL. CONTINUES TO TOLERATE. ALL SAFETY MEASURES REMAIN INTACT WITH BED IN LOWEST POSITION AND LOCKED. SIDERAIL UPX2, CALL LIGHT WITHIN REACH. WILL CONTINUE TO MONITOR.
--- NOTE | 2021-10-10 07:54 | NUR ---
PATIENT FOUND ON THE BED AFTER USING BATHROOM. PATIENT IS ALERT AND RESPONSIVE. PATIENT IS STABLE. Addendum: 10/10/21 at 0755 by GIANLUCA HENDERSON RT Amended: Links added.
[2021-10-10 08:00] VITALS: BP 136/74
[2021-10-10] MEDS: ASPIRIN 81 MG TAB.CHEW PO SCH (09:05)
[2021-10-10] MEDS: ALLOPURINOL 100 MG TABLET PO SCH (09:05)
[2021-10-10] MEDS: methylPREDNISolone SOD SUCC 40 MG/ML VIAL IV SCH (09:08)
[2021-10-10] MEDS: ALPRAZOLAM 1 MG TABLET PO PRN ×2 (09:12→21:16)
[2021-10-10] MEDS ORDERED: PRED5TAB PO ×2 (10:29)
[2021-10-10] MEDS ORDERED: PRED20TA PO (10:29)
[2021-10-10] MEDS: LEVOFLOXACIN (250MG) 250 MG TABLET PO SCH (16:23)
[2021-10-10 16:38] VITALS: BP 146/61
--- NOTE | 2021-10-10 17:30 | NUR ---
RN NOTES CALLED [facility] AT PHONE NUMBER [phone] AND GAVE REPORT FOR THE PATIENT TO DANITA AT 1730 .
--- NOTE | 2021-10-10 19:10 | NUR ---
MS RN CLOSING NOTES: PATIENT AWAKE IN BED, BED IN LOW POSITION CALL LIGHTS WITHIN REACH, NO COMPLAIN OF PAIN AND DISCOMFORT AT THIS TIME, ON 02 INHALATION AT 2PM SATURATING WELL, PATIENT IS A/OX4 ABLE TO MAKE NEEDS KNOWN, AMBULATORY, WITH SUPERVISION, WITH IV LINE AT THEO#20SL, ON D/C ORDER TO [facility], CALLED AND REPORT TO FACILITY. ALL DUE MEDS GIVEN ORDERED. ALL SAFETY MEASURES IN PLACE. BED LOCKED IN THE LOWEST POSITION. CALL LIGHT AND TABLE IN EASY REACH. WILL CONTINUE TO MONITOR. PATIENT KEPT CLEAN AND DRY ALL NEEDS MET, WILL ENDORSE FOR BRIGHT. PATIENT WILL BE PICKED UP BY AMBULANCE AT 1930 PM.
--- NOTE | 2021-10-10 19:19 | NUR ---
MS RN OPENING NOTES: RECEIVED PATIENT AWAKE IN BED, BED IN LOW POSITION CALL LIGHTS WITHIN REACH, NO COMPLAIN OF PAIN AND DISCOMFORT AT THIS TIME, ON 02 INHALATION AT 2PM SATURATING WELL, PATIENT IS A/OX4 ABLE TO MAKE NEEDS KNOWN, AMBULATORY, WITH SUPERVISION, WITH IV LINE AT THEO#20SL, ON D/C TO [facility], PATIENT KEPT CLEAN AND DRY ALL NEEDS MET, HESHAM CONTINUE TO MONITOR.
[2021-10-10 20:00] VITALS: BP_SYST 153; BP_SYST 157; BP_SYST 159; BP_DIAS 86
[2021-10-10] MEDS: PSYLLIUM SEED 1 PKT PACKET PO SCH (21:10)
[2021-10-10] MEDS: ATORVASTATIN 40 MG TABLET PO SCH (21:10)
[2021-10-10] MEDS: DOCUSATE SODIUM 100 MG CAPSULE PO SCH (21:10)
[2021-10-10] MEDS: LATANOPROST EYE DROP 0.005% 2.5 ML BOTTLE EACHEYE SCH (21:54)
--- NOTE | 2021-10-10 21:55 | NUR ---
RN notes Called [facility] and spoke with Jaylen regarding transport picker and sorter load and unload. Jaylen informed that ambulance is at the hospital lobby. primary nurse ALLEGRA Hoffman is aware and informed.
--- NOTE | 2021-10-10 22:00 | NUR ---
RN notes [facility] just arrived.
--- NOTE | 2021-10-10 22:19 | NUR ---
RN NOTES: PATIENT WAS ABOUT TO BE PASTA PRESS OPERATOR BY [facility] FOR D/C TO [facility] PATIENT INITIAL V/S ARE 158/79 HR-98 DOUBLE CHECK V/S NOW WAS 165/102 HR-100, PATIENT TOOK XANAX .05MG AT 2115, CALLED [facility] AND SPOKE TO DANITA REGARDING PATIENT INITIAL BLOOD PRESSURE PER CN THEY CANT TAKE PATIENT WITH BP ABOVE 150 NURSING ASHA PATRICK IS AWARE AND INFORM CN IS AWARE AND INFORM, CALLED HOSPITALIST FOR [facility] AWAITING FOR RESPONSE. WILL CONTINUE TO MONITOR.
[2021-10-10] MEDS ORDERED: hydrALAZINE HCL IV 20 MG VIAL IV ONE (22:30)
--- NOTE | 2021-10-10 23:15 | NUR ---
RN NOTES: AUTOMATION QA ANALYST MIGUEL REPLIED AND ORDERED HYDRALAZINE 10MG IVP ONE TIME FOR BLOOD PRESSURE 165/102 HR-100 NOTED AND CARRY OUT, DAUGHTER TRUPTI CALLED AND SPOKE ABOUT PATIENT INTENTION TO BE TRANSFER TOMORROW TOLD HER ITS OUT OF OUR HAND AND WE NEED TO CALLED THE NURSE PRE PRESS MANAGER CELINA , DAUGHTER SPOKE TO CELINA AND PER CELINA ITS OK FOR HIM BUT WE HAVE TO NOTIFY THE HOSPITALIST, NOTIFY DR RIVERA AND PER HOSPITALIST " THERE'S NOTHING I CAN DO IF PATIENT REFUSED" CALLED DAUGHTER TRUPTI INFORM HER THAT ITS OK FOR HER TO STAY OVERNIGHT AND TRANSFER WILL BE ENDORSE TO MORNING SHIFT NURSE, CALLED [facility] SPOKE TO YESSENIA AND MADE THEM AWARE, PATIENT WAS MADE AWARE WILL CONTINUE TO MONITOR.
[2021-10-11] MEDS: IPRATROPIUM NEB FS 0.5 MG/2.5 ML AMPUL.NEB NEB SCH ×3 (01:31→12:51)
[2021-10-11] MEDS: ALBUTEROL FS 2.5 MG/0.5 ML VIAL.NEB NEB SCH ×3 (01:32→12:51)
--- NOTE | 2021-10-11 06:48 | NUR ---
MS RN CLOSING NOTES: PATIENT SLEEP IN BED, COMFORTABLY, AROUSABLE TO VERBAL STIMULI, BED IN LOW POSITION CALL LIGHTS WITHIN REACH, NO COMPLAIN OF PAIN AND DISCOMFORT AT THIS TIME, ON O2 INHALATION AT 2LPM SATURATING WELL, PATIENT IS A/OX4 AMBULATORY WITH ASSISTANCE, PATIENT WAS FOR D/C TO [facility] IN AM, PATIENT KEPT CLEAN AND DRY ALL NEEDS MET ENDORSE TO INCOMING SHIFT.
--- NOTE | 2021-10-11 07:05 | NUR ---
RN OPENING NOTE RECEIVED PT IN BED, AWAKE, A/OX4. NO SIGNS OF RESPIRATORY DISTRESS OR SOB NOTED. PT IS ON 2L NC. ABLE TO MAKE NEEDS KNOWN. NO COMPLAINTS OF PAIN AT THIS TIME. IV IN LEFT UPPER ARM 20G INTACT AND PATENT. SAFETY MEASURES: BED LOCKED, IN LOWEST POSITION, ALARM ON, SIDE RAILS X2, CALL LIGHT WITHIN REACH. WILL CONTINUE TO MONITOR CLOSELY.
[2021-10-11 08:00] VITALS: BP 162/84
[2021-10-11] MEDS ORDERED: hydrALAZINE HCL 10 MG TABLET PO PRN (09:30)
[2021-10-11] MEDS: ASPIRIN 81 MG TAB.CHEW PO SCH (09:32)
[2021-10-11] MEDS: ALLOPURINOL 100 MG TABLET PO SCH (09:32)
[2021-10-11] MEDS: methylPREDNISolone SOD SUCC 40 MG/ML VIAL IV SCH (09:32)
[2021-10-11] MEDS: ALPRAZOLAM 1 MG TABLET PO PRN (11:29)
--- NOTE | 2021-10-11 11:54 | NUR ---
RN NOTE PTS BP IS 168/80, ADMINISTERED HYDRALAZINE. WHEN I WENT BACK INTO CHECK ON HER SHE REFUSED TO TAKE THEN ENTIRE AMOUNT. PT ONLY TOOK HALF. EDUCATION WAS PROVIDED ON THE IMPORTANCE OF DECREASING HER BP.
[2021-10-11 12:14] VITALS: BP 133/73
--- NOTE | 2021-10-11 13:42 | NUR ---
SECTION CUTTER NOTE EMS ARRIVED TO PHOTO PRINT SPECIALIST PT TO TRANSPORT TO A NURSING CARE FACILITY. PT LEAVING STABLE. DISCHARGE INSTRUCTIONS AND PAPERWORK GIVEN TO PT AND TRANSPORT. PT UNDERSTANDS ALL DISCHARGE INSTRUCTIONS. IV TAKEN OUT.
== END 2021-10-11 14:00 | DRG 196 ==
LOC: ER 13:01 → TRANSITION 19:57 → TELE 20:06 → MED 09-30 21:00
PROVIDERS: ADMIT Internal Medicine; ATTEND Nurse Practitioner Acute Care
DX: J84.10 Pulmonary fibrosis, unspecified (principal); I50.33 Acute on chronic diastolic (congestive) heart failure; J96.21 Acute and chronic respiratory failure with hypoxia; N17.0 Acute kidney failure with tubular necrosis; I13.0 Hypertensive heart and chronic kidney disease with heart failure and stage 1 through stage 4 chronic kidney disease, or unspecified chronic kidney disease; N18.9 Chronic kidney disease, unspecified; E87.5 Hyperkalemia; Z20.822 Contact with and (suspected) exposure to COVID-19; E78.5 Hyperlipidemia, unspecified; I50.82 Biventricular heart failure; Z79.51 Long term (current) use of inhaled steroids; Z79.82 Long term (current) use of aspirin; Z79.899 Other long term (current) drug therapy; E83.42 Hypomagnesemia; I25.2 Old myocardial infarction; I27.29 Other secondary pulmonary hypertension; Z87.891 Personal history of nicotine dependence; D72.829 Elevated white blood cell count, unspecified; T38.0X5A Adverse effect of glucocorticoids and synthetic analogues, initial encounter; Y92.129 Unspecified place in nursing home as the place of occurrence of the external cause; X58.XXXA Exposure to other specified factors, initial encounter; Y92.89 Other specified places as the place of occurrence of the external cause; D63.8 Anemia in other chronic diseases classified elsewhere; M10.9 Gout, unspecified
CPT/HCPCS: 36415; 36600; 71045-TC; 76770-TC; 80048-TC; 80053-TC; 82803-TC; 83605-TC; 83735-TC; 83880; 84100-TC; 84484-TC; 85025-TC; 87081-TC; 93307-TC; 93970-TC; 94640-TC; 94799-TC; 97116-TC; 97530-TC; C9803; G0378; J0360; J1644; J1940; J1956; J2270; J2405; J2920; J2930; J7030; J7040; Q0169

== ENCOUNTER 2021-11-29 21:13 | Inpatient (IN) | payer OTHER ==
[~2021-11-29] VITALS: Ht 162.6 cm; Wt 62.6 kg
[~2021-11-29 21:13] MED LIST: ALLO100T PO; ASPI-1169 PO; ATOR40TA PO; BUDE10.2 INH; DOCU-141 PO; FAMO-130 PO; LATA2.5D15 EACHEYE; PRED20TA PO; PRED5TAB PO
--- NOTE | 2021-11-29 21:20 | NUR ---
[id number]. DIARRHEA W/ NASUEA AND VOMMITING TONIGHT. PLACED ON BED, AAOX4, BREATHING EVEN AND UNLABORED SATURATING AT 94% WITH 3LIT O2.
--- NOTE | 2021-11-29 21:22 | NUR ---
BLOOD DRAWN AND SENT TO LAB
[2021-11-29] MEDS ORDERED: IV NS 0.9% 1,000 ML BAG IV ONE (21:30)
[2021-11-29 21:52] LABS: BASOPHILS % (AUTO) 0.4 % (0.0-2.0); HEMATOCRIT 38 % (33-45); HEMOGLOBIN 12.1 g/dL (11.5-14.8); LYMPHOCYTES # (AUTO) 1.4 K/uL (0.8-4.8); LYMPHOCYTES % (AUTO) 22.7 % (20.0-44.0); MEAN CORPUSCULAR HGB CONC 32 g/dl (31.0-36.0); MEAN CORPUSCULAR VOLUME 88 fL (82-100); MONOCYTES # (AUTO) 0.6 K/uL (0.1-1.30); MONOCYTES % (AUTO) 9.3 % (2.0-12.0); NEUTROPHILS % (AUTO) 62.6 % (43.0-81.0); PLATELET COUNT (AUTO) 277 K/uL (150-450); RED BLOOD CELL COUNT(AUTO) 4.35 MIL/uL (4.0-5.2); WHITE BLOOD COUNT (AUTO) 6.3 K/uL (4.3-11.0)
[2021-11-29 22:09] LABS: ALANINE AMINOTRANSFERASE 23 U/L (12-78); ALBUMIN 3.4 g/dL (3.4-5.0); ALKALINE PHOSPHATASE 75 U/L (46-116); ASPARTATE AMINOTRANSFERASE 25 U/L (15-37); BILIRUBIN,DIRECT 0.2 mg/dL (0.0-0.2); BILIRUBIN,TOTAL 0.4 mg/dL (0.2-1.0); CALCIUM, SERUM 9.1 mg/dL (8.5-10.1); CARBON DIOXIDE 26 mmol/L (21-32); CHLORIDE 108 mmol/L (98-107); CREATININE 1.9 mg/dL (0.6-1.3); GLUCOSE 104 mg/dL (74-106); LIPASE 110 U/L (73-393); POTASSIUM 4.3 mmol/L (3.5-5.1); SODIUM SERUM 143 mmol/L (136-145); UREA NITROGEN, BLOOD 31 mg/dL (7-18)
[2021-11-29] MEDS ORDERED: ONDANSETRON HCL/PF 4 MG/2 ML VIAL IVP ONE (22:30)
[2021-11-29] MEDS ORDERED: MORPHINE SULFATE INJ 2 MG/ML DISP.SYRIN IV ONE (22:30)
[2021-11-29] MEDS ORDERED: ONDANSETRON HCL/PF 4 MG/2 ML VIAL ONE (22:52)
[2021-11-29] MEDS ORDERED: KETOROLAC TROMETHAMINE INJ 30 MG/ML VIAL ONE (22:52)
[2021-11-29] MEDS ORDERED: KETOROLAC TROMETHAMINE INJ 30 MG/ML VIAL IV ONE (23:00)
[2021-11-29] MEDS ORDERED: ALPR0.5T PO (23:11)
[2021-11-29] MEDS ORDERED: CIPR-262 PO (23:11)
--- NOTE | 2021-11-29 23:25 | NUR ---
SWAB FOR COVID19 SENT TO LAB
[2021-11-29] MEDS ORDERED: LEVOFLOXACIN 750 MG /D5W 150ML 150 ML IV ONE ×2 (23:30→23:47)
--- NOTE | 2021-11-29 23:45 | NUR ---
PATIENT REFUSED CATH. FOR URINE SAMPLE
[2021-11-30] MEDS ORDERED: ONDANSETRON HCL/PF 4 MG/2 ML VIAL IVP PRN (01:00)
[2021-11-30] MEDS ORDERED: Z GUARD REMEDY 4 OZ OINT TP PRN (01:00)
[2021-11-30] MEDS ORDERED: MAG HYDROX/AL HYDROX/SIMETH 30 ML UDC PO PRN (01:00)
[2021-11-30] MEDS ORDERED: ALPRAZOLAM 0.5 MG TABLET PO PRN (01:30)
[2021-11-30 05:23] LABS: BASOPHILS % (AUTO) 0.3 % (0.0-2.0); EOSINOPHILS % (AUTO) 6.4 % (0.0-6.0); HEMATOCRIT 34 % (33-45); HEMOGLOBIN 10.6 g/dL (11.5-14.8); LYMPHOCYTES # (AUTO) 1.1 K/uL (0.8-4.8); LYMPHOCYTES % (AUTO) 21.4 % (20.0-44.0); MEAN CORPUSCULAR HGB CONC 31 g/dl (31.0-36.0); MEAN CORPUSCULAR VOLUME 90 fL (82-100); MONOCYTES # (AUTO) 0.5 K/uL (0.1-1.30); MONOCYTES % (AUTO) 10.6 % (2.0-12.0); NEUTROPHILS # (AUTO) 3.1 K/uL (1.8-8.9); NEUTROPHILS % (AUTO) 61.3 % (43.0-81.0); PLATELET COUNT (AUTO) 199 K/uL (150-450); RED BLOOD CELL COUNT(AUTO) 3.72 MIL/uL (4.0-5.2); WHITE BLOOD COUNT (AUTO) 5.1 K/uL (4.3-11.0)
[2021-11-30 05:43] LABS: ALANINE AMINOTRANSFERASE 17 U/L (12-78); ALBUMIN 2.7 g/dL (3.4-5.0); ALKALINE PHOSPHATASE 61 U/L (46-116); ASPARTATE AMINOTRANSFERASE 27 U/L (15-37); BILIRUBIN,TOTAL 0.5 mg/dL (0.2-1.0); CALCIUM, SERUM 7.9 mg/dL (8.5-10.1); CARBON DIOXIDE 24 mmol/L (21-32); CHLORIDE 110 mmol/L (98-107); CREATININE 1.8 mg/dL (0.6-1.3); GLUCOSE 157 mg/dL (74-106); PHOSPHORUS 4.6 mg/dL (2.5-4.9); POTASSIUM 4.5 mmol/L (3.5-5.1); SODIUM SERUM 141 mmol/L (136-145); TOTAL PROTEIN, SERUM 5.8 g/dL (6.4-8.2); UREA NITROGEN, BLOOD 29 mg/dL (7-18)
[2021-11-30 05:57] LABS: THYROID STIMULATING HORMONE 2.345 uIU/mL (0.358-3.74)
--- NOTE | 2021-11-30 07:50 | NUR ---
RT CALLED FOR BREATHING TX
[2021-11-30] MEDS: ALBUTEROL FS 2.5 MG/3 ML VIAL.NEB NEB SCH ×3 (07:56→19:49)
[2021-11-30] MEDS: BUDESONIDE RESPULE INH 0.5 MG/2 ML AMPUL.NEB IH SCH ×2 (07:56→14:35)
--- NOTE | 2021-11-30 07:57 | NUR ---
RT AT BEDSIDE FOR BREATHING TX
[2021-11-30] MEDS ORDERED: ALBUTEROL FS 2.5 MG/3 ML VIAL.NEB ONE (08:00)
[2021-11-30] MEDS ORDERED: DOCUSATE SODIUM 100 MG CAPSULE PO ONE (08:05)
[2021-11-30] MEDS ORDERED: FAMOTIDINE (20 MG) 20 MG TABLET ONE (08:05)
[2021-11-30] MEDS ORDERED: HEPARIN SODIUM, PORCINE 5000 UNITS/1 ML VIAL ONE (08:05)
[2021-11-30] MEDS ORDERED: ASPIRIN 81 MG TAB.CHEW ONE (08:06)
[2021-11-30] MEDS ORDERED: PANTOPRAZOLE 40 MG TABLET.DR PO ONE (08:06)
--- NOTE | 2021-11-30 08:09 | NUR ---
SEEN BY DR APPIAH
[2021-11-30] MEDS: FAMOTIDINE (20 MG) 20 MG TABLET PO SCH (08:30)
[2021-11-30] MEDS: PANTOPRAZOLE 40 MG TABLET.DR PO SCH (08:30)
[2021-11-30] MEDS: ASPIRIN 81 MG TAB.CHEW PO SCH (08:35)
[2021-11-30] MEDS: DOCUSATE SODIUM 100 MG CAPSULE PO SCH (08:41)
[2021-11-30] MEDS: ALLOPURINOL 100 MG TABLET PO SCH (08:44)
[2021-11-30] MEDS: HEPARIN SODIUM, PORCINE 5000 UNITS/1 ML VIAL SQ SCH ×2 (08:44→17:53)
[2021-11-30] MEDS: IV NS 0.9% 1,000 ML IV PRN ×2 (08:46→15:10)
--- NOTE | 2021-11-30 08:57 | NUR ---
pt awake and verbally responsive, not in acute distress. seen by dr. casey at bedside, made aware that pt's o2 sat is in the high 80's to low 90's. w/ history of pulmonary fibrosis per pt.
[2021-11-30] MEDS ORDERED: ALPRAZOLAM 0.25 MG TABLET PO PRN (09:00)
[2021-11-30] MEDS ORDERED: ONDANSETRON HCL/PF 4 MG/2 ML VIAL ONE (10:00)
[2021-11-30] MEDS ORDERED: ALPRAZOLAM 0.25 MG TABLET ONE (10:09)
--- NOTE | 2021-11-30 10:14 | NUR ---
ROOM [facility]
--- NOTE | 2021-11-30 10:18 | NUR ---
PT REPORT GIVEN TO SHERIF TRAVIS RN
--- NOTE | 2021-11-30 10:22 | NUR ---
GOT BED 119
--- NOTE | 2021-11-30 10:59 | NUR ---
PT TRANSFERRED TO 119 VIA GURNEY. WARM HAND OFF GIVEN TO RN ASSIGNED.
--- NOTE | 2021-11-30 11:45 | NUR ---
RN OPENING NOTE RECEIVED PT FROM ER. PT IS ALERT AND ORIENTED X4. PT IS ON 3.5 NC TOLERATING AT 96%. PT IS HIGH FOWLERS POSITION. PT HAS IV ON LEFT HAND. IV PATENT AND FLUSHING WELL. PT HAS NORMAL SALINE RUNNING AT 75 ML/HR. NO PAIN OR DISCOMFORT. ALL SAFETY MEASURES IN PLACE. CALL LIGHT WITHIN REACH. BED LOCKED AT LOWEST POSITION. SIDE RAILS UP X2. BED ALARM ON
[2021-11-30 12:00] VITALS: BP 112/64
--- NOTE | 2021-11-30 12:30 | NUR ---
RN NOTE PATIENT DOESN'T WANT TO WEAR HOSPITAL GOWN AT THIS TIME
[2021-11-30 16:00] VITALS: BP 105/61
--- NOTE | 2021-11-30 18:08 | NUR ---
RN NOTE NOTIFIED THAT PT WANTS HEPARIN TO BE EVERY 12 HOURS NOT TWICE DAILY. ACKNOWLEDGED
--- NOTE | 2021-11-30 19:00 | NUR ---
RN NOTE PT WANTED TO GET OUT OF BED TO USE BATHROOM. APPLIANCE LINE ASSEMBLER WAS WITH PATIENT. PT AT EDGE OF BED AND FELT LIKE PASSING OUT. PUT BACK IN BED AND CHECKED VITAL SIGNS. NOTIFIED THAT PT BP IS 93/58, HR 119, ON 4 L NC DESATURATING TO 89% PATIENT ALMOST PASSED OUT AND HAS RIGHT ARM PAIN.
--- NOTE | 2021-11-30 19:01 | NUR ---
RN NOTE SAID THAT PT HAS PULMONARY FIBROSIS ON CHRONIC OXYGEN 90% AT 3-4 l AND IF SHE HAS RIGHT ARM PAIN. GIVE PAIN MEDS IF NEEDED
--- NOTE | 2021-11-30 19:11 | NUR ---
RN NOTE NOTIFIED DR. APPIAH IF PT CAN BE ORDERED XANAX, PT DOESN'T WANT MORPHINE OR ATIVAN. ORDERED XANAX 0.5 TID PRN. ORDERS NOTED AND ENDORSED TO SCIENTIST IMMUNOLOGY RN
[2021-11-30] MEDS ORDERED: LORAZEPAM 1 MG TABLET PO PRN (19:30)
[2021-11-30 20:00] VITALS: BP 108/79
--- NOTE | 2021-11-30 20:59 | NUR ---
RN CLOSING NOTE PT A/0 X4. PT ON 3-4 L NC AT 92%.PT HIGH FOWLERS POSITION. IV ON LEFT HAND. PATENT, INTACT AND FLUSHING WELL. RUNNING NS AT 75 ML/HR. ALL SAFETY MEASURES IN PLACE. CALL WITHIN REACH.BED ALARM ON. BED LOCKED AT LOWEST POSITION. SIDE RAILS UP X2. PT HAS LIGHTHEADEDNESS AND DIZZINESS, PT FALL RISK. ENDORSED TO PEER HEALTH PROMOTER RN. REINFORCED TEACHING TO PT TO USE CALL LIGHT FOR ANY ASSISTANCE INCLUDING BATHROOM NEEDS, AND BASIC NEEDS.PT VERBALIZED UNDERSTANDING AND AGREED.
--- NOTE | 2021-11-30 21:01 | NUR ---
RN CLOSING NOTE PT A/0 X4. PT ON 3-4 L NC AT 92%.PT HIGH FOWLERS POSITION. IV ON LEFT HAND. PATENT, INTACT AND FLUSHING WELL. RUNNING NS AT 75 ML/HR. ALL SAFETY MEASURES IN PLACE. CALL WITHIN REACH.BED ALARM ON. BED LOCKED AT LOWEST POSITION. SIDE RAILS UP X2. REINFORCED TEACHING TO PT TO USE CALL LIGHT FOR ANY ASSISTANCE INCLUDING BATHROOM NEEDS. PT VERBALIZED UNDERSTANDING AND AGREED.
[2021-11-30] MEDS: LATANOPROST EYE DROP 0.005% 2.5 ML BOTTLE EACHEYE SCH (21:10)
[2021-11-30] MEDS: CIPROFLOXACIN HCL 500 MG TABLET PO SCH (21:11)
[2021-11-30] MEDS: ALPRAZOLAM 0.25 MG TABLET PO PRN (21:11)
[2021-11-30] MEDS: ATORVASTATIN 40 MG TABLET PO SCH (21:11)
--- NOTE | 2021-11-30 21:36 | NUR ---
RN NOTE PT REQUESTED FOR XANAX TO HELP HER CALM DOWN. GIVEN ORDERED. PT IN NO RESPI DISTRESS AT THIS TIME.
--- NOTE | 2021-11-30 21:58 | NUR ---
RN NOTE ADVANCED DIET FROM FULL LIQUID TO REGULAR DIET PER CENTRAL AISLE CASHIER (CLARI KAUR). PT ASKED FOR SANDWICH, EDUCATED PT ABOUT IMPORTANCE OF CHEWING FOOD SLOWLY. WILL CONTINUE TO MONITOR.
[2021-12-01] MEDS: ALBUTEROL FS 2.5 MG/3 ML VIAL.NEB NEB SCH ×4 (01:57→20:03)
[2021-12-01 04:00] VITALS: BP 138/62
[2021-12-01] MEDS: IV NS 0.9% 1,000 ML IV PRN (06:27)
--- NOTE | 2021-12-01 06:33 | NUR ---
RN NOTE PT STABLE THE WHOLE NIGHT. TRIED TO USE RESTROOM WITH ASSIST FROM BILL POSTER INSTALLER AND SAID SHE FELT VERY LIGHT HEADED. WILL USE BED ZHU FOR NOW. ALL DUE MEDS GIVEN. NEEDS ATTENDED TO. TURNED AND REPOSITIONED. WILL ENDORSE TO AM SHIFT NURSE FOR BRIGHT.
[2021-12-01 07:14] LABS: BASOPHILS % (AUTO) 0.4 % (0.0-2.0); EOSINOPHILS % (AUTO) 7.2 % (0.0-6.0); HEMATOCRIT 34 % (33-45); HEMOGLOBIN 10.6 g/dL (11.5-14.8); LYMPHOCYTES # (AUTO) 0.7 K/uL (0.8-4.8); LYMPHOCYTES % (AUTO) 12.9 % (20.0-44.0); MEAN CORPUSCULAR HGB CONC 31 g/dl (31.0-36.0); MEAN CORPUSCULAR VOLUME 90 fL (82-100); MONOCYTES # (AUTO) 0.5 K/uL (0.1-1.30); NEUTROPHILS # (AUTO) 3.6 K/uL (1.8-8.9); NEUTROPHILS % (AUTO) 70.5 % (43.0-81.0); PLATELET COUNT (AUTO) 186 K/uL (150-450); RED BLOOD CELL COUNT(AUTO) 3.73 MIL/uL (4.0-5.2); WHITE BLOOD COUNT (AUTO) 5.1 K/uL (4.3-11.0)
[2021-12-01] MEDS: ALPRAZOLAM 0.25 MG TABLET PO PRN ×3 (07:21→22:08)
[2021-12-01 07:29] LABS: CALCIUM, SERUM 8.1 mg/dL (8.5-10.1); CARBON DIOXIDE 23 mmol/L (21-32); CHLORIDE 110 mmol/L (98-107); CREATININE 1.9 mg/dL (0.6-1.3); GLUCOSE 103 mg/dL (74-106); POTASSIUM 4.6 mmol/L (3.5-5.1); SODIUM SERUM 141 mmol/L (136-145); UREA NITROGEN, BLOOD 29 mg/dL (7-18)
[2021-12-01] MEDS: BUDESONIDE RESPULE INH 0.5 MG/2 ML AMPUL.NEB IH SCH ×2 (07:45→15:29)
[2021-12-01] MEDS: PANTOPRAZOLE 40 MG TABLET.DR PO SCH (07:50)
--- NOTE | 2021-12-01 07:58 | NUR ---
MS RN OPENING NOTES: RECEIVED PATIENT AWAKE IN BED, BED IN LOW POSITION CALL LIGHTS WITHIN REACH, NO COMPLAIN OF PAIN AND DISCOMFORT AT THIS TIME, ON ROOM AIR SATURATING WELL, PATIENT IS A/OX 3-4 ABLE TO MAKE NEEDS KNOWN, IV LINE AT LAC #20 WITH ONGOING NSS@75ML/HR INFUSING WELL, PATIENT KEPT CLEAN AND DRY ALL NEEDS MET WILL CONTINUE TO MONITOR.
[2021-12-01 08:00] VITALS: BP 101/71
[2021-12-01] MEDS: ASPIRIN 81 MG TAB.CHEW PO SCH (08:57)
[2021-12-01] MEDS: DOCUSATE SODIUM 100 MG CAPSULE PO SCH ×2 (08:57→09:00)
[2021-12-01] MEDS: ALLOPURINOL 100 MG TABLET PO SCH (08:57)
[2021-12-01] MEDS: FAMOTIDINE (20 MG) 20 MG TABLET PO SCH (08:57)
[2021-12-01] MEDS: HEPARIN SODIUM, PORCINE 5000 UNITS/1 ML VIAL SQ SCH ×3 (08:59→16:35)
--- NOTE | 2021-12-01 09:41 | NUR ---
RN NOTES: PT IS COUGHING RECEIVED BREATHING TX AROUND 7 AM BY RT, ASKING FOR COUGH MEDICINE SPOKE TO DR MELGAR WITH ORDER OF ROBITUSSIN 5 ML EVERY 4 HOURS NEEDED
[2021-12-01] MEDS ORDERED: GUAIFENESIN 300 MG/15 ML UDC PO PRN (10:00)
[2021-12-01] MEDS: GUAIFENESIN 300 MG/15 ML UDC PO PRN ×2 (10:05→21:47)
[2021-12-01] MEDS: ACETAMINOPHEN 325 MG TABLET PO PRN (10:05)
--- NOTE | 2021-12-01 10:53 | NUR ---
RN NOTES: SEEN BY DR. APPIAH. PATIENT REQUESTED PROMETHAZINE. WITH NEW ORDER, NOTED AND CARRIED OUT.
[2021-12-01 12:00] VITALS: BP 100/71
[2021-12-01] MEDS: CODEINE/PROMETHAZINE HCL 5 ML UDC PO PRN ×2 (12:06→16:33)
[2021-12-01] MEDS: methylPREDNISolone SOD SUCC 40 MG/ML VIAL IV SCH ×2 (13:08→21:50)
[2021-12-01 16:00] VITALS: BP 94/58
[2021-12-01] MEDS: IV NS 0.9% 1,000 ML IV SCH (18:07)
--- NOTE | 2021-12-01 19:28 | NUR ---
RN CLOSING NOTE PT A/0 X4. PT ON 5 L NC AT 95%.PT HIGH FOWLERS POSITION. IV ON LEFT HAND. PATENT, INTACT AND FLUSHING WELL. RUNNING NS AT 75 ML/HR. ALL SAFETY MEASURES IN PLACE. CALL WITHIN REACH.BED ALARM ON. BED LOCKED AT LOWEST POSITION. SIDE RAILS UP X2. . REINFORCED TEACHING TO PT TO USE CALL LIGHT FOR ANY ASSISTANCE INCLUDING BATHROOM NEEDS, AND BASIC NEEDS.PT VERBALIZED UNDERSTANDING AND AGREED.
--- NOTE | 2021-12-01 19:30 | NUR ---
RN NOTES RECEIVED PT FOR CONTINUITY OF CARE. PATIENT A/OX4 CURRENTLY ON 5L OF O2 VIA NC; WITH 02 SAT 96% AT THIS TIME, WITH NOTED SOB UPON EXERTION, SLIGHTLY ANXIOUS. WITH IV ACCESS PATENT L AC#20, INTACT AND FLUSHING WELL. WITH RUNNING IV FLUID ORDERED. WILL ENSURE SAFETY MEASURES WITHIN THE SHIFT. PATIENT BED ALARM IS ON. HEAD OF BED ELEVATED. BED IS LOCKED, IN LOWEST POSITION AND SIDE RAILS UP. CALL LIGHT WITHIN REACH OF THE PATIENT. WILL CONTINUE TO MONITOR AND REASSESS FOR ANY CHANGES AND WILL CARRY OUT ANY ONGOING AND ACTIVE MD ORDER.
[2021-12-01] MEDS: LATANOPROST EYE DROP 0.005% 2.5 ML BOTTLE EACHEYE SCH (21:53)
[2021-12-01] MEDS: CIPROFLOXACIN HCL 500 MG TABLET PO SCH (22:08)
[2021-12-01] MEDS: ATORVASTATIN 40 MG TABLET PO SCH (22:08)
[2021-12-02] MEDS: ALBUTEROL FS 2.5 MG/3 ML VIAL.NEB NEB SCH ×5 (00:53→21:00)
[2021-12-02] MEDS: ACETAMINOPHEN 325 MG TABLET PO PRN (01:41)
[2021-12-02] MEDS: CODEINE/PROMETHAZINE HCL 5 ML UDC PO PRN (02:05)
[2021-12-02 04:00] VITALS: BP 92/58
[2021-12-02] MEDS: GUAIFENESIN 300 MG/15 ML UDC PO PRN ×2 (05:26→12:32)
[2021-12-02] MEDS: methylPREDNISolone SOD SUCC 40 MG/ML VIAL IV SCH ×3 (05:27→21:08)
--- NOTE | 2021-12-02 06:33 | NUR ---
RN CLOSING NOTE: PATIENT REMAINS IN ROOM IN NO SIGNS OF RESPIRATORY DISTRESS, PATIENT REMAINED ON 5L OF 02 VIA NC TOLERATING WELL WITH 02 SAT AT >93%. WITH INTERMITTENT EPISODES OF SEVERE COUGHING AND SLIGHT DESATURATION PRN MEDICATIONS GIVEN AND TOLERATED; RELIEF PROVIDED MOMENTARILY. SAFETY MEASURES IMPLEMENTED, BED IN LOWEST POSITION, LOCKED, SIDE RAILS UP, CALL LIGHT WITHIN REACH. ALL NEEDS AND ORDERS ADDRESSED DURING THE SHIFT. IV ACCESS MAINTAINED INTACT, SECURED AND FLUSHING WELL. ALL DUE MEDS GIVEN ORDERED & SCHEDULED ; PATIENT TOLERATED WELL. PATIENT KEPT CLEAN AND COMFORTABLE WITHIN THE SHIFT. PATIENT ENDORSED TO INCOMING SHIFT RN WITH STABLE VITAL SIGN AND FOR CONTINUITY OF CARE.
[2021-12-02] MEDS: IV NS 0.9% 1,000 ML IV SCH ×2 (06:37→21:04)
[2021-12-02 06:46] LABS: BASOPHILS % (AUTO) 0.1 % (0.0-2.0); EOSINOPHILS % (AUTO) 0.1 % (0.0-6.0); HEMATOCRIT 37 % (33-45); HEMOGLOBIN 10.9 g/dL (11.5-14.8); LYMPHOCYTES # (AUTO) 0.3 K/uL (0.8-4.8); LYMPHOCYTES % (AUTO) 6.6 % (20.0-44.0); MEAN CORPUSCULAR HGB CONC 30 g/dl (31.0-36.0); MEAN CORPUSCULAR VOLUME 93 fL (82-100); MONOCYTES # (AUTO) 0.1 K/uL (0.1-1.30); MONOCYTES % (AUTO) 1.4 % (2.0-12.0); NEUTROPHILS % (AUTO) 91.8 % (43.0-81.0); PLATELET COUNT (AUTO) 175 K/uL (150-450); RED BLOOD CELL COUNT(AUTO) 3.91 MIL/uL (4.0-5.2); WHITE BLOOD COUNT (AUTO) 4.4 K/uL (4.3-11.0)
[2021-12-02 07:10] LABS: CALCIUM, SERUM 8.1 mg/dL (8.5-10.1); CARBON DIOXIDE 18 mmol/L (21-32); CHLORIDE 110 mmol/L (98-107); CREATININE 2.4 mg/dL (0.6-1.3); GLUCOSE 154 mg/dL (74-106); SODIUM SERUM 141 mmol/L (136-145); UREA NITROGEN, BLOOD 34 mg/dL (7-18)
[2021-12-02] MEDS: BUDESONIDE RESPULE INH 0.5 MG/2 ML AMPUL.NEB IH SCH ×2 (07:23→15:19)
--- NOTE | 2021-12-02 07:25 | NUR ---
RN opening NOTE PT A/0 X4. PT ON 3-4 L NC AT 92%.pt verbally responsive and able to make needs known. PT HIGH FOWLERS POSITION. IV ON LEFT HAND. PATENT, INTACT AND FLUSHING WELL. RUNNING NS AT 75 ML/HR. ALL SAFETY MEASURES IN PLACE. CALL WITHIN REACH.BED ALARM ON. BED LOCKED AT LOWEST POSITION. SIDE RAILS UP X2. PT HAS LIGHTHEADEDNESS AND DIZZINESS, PT FALL RISK. REINFORCED TEACHING TO PT TO USE CALL LIGHT FOR ANY ASSISTANCE INCLUDING BATHROOM NEEDS, AND BASIC NEEDS.PT VERBALIZED UNDERSTANDING AND AGREED.
[2021-12-02] MEDS: ALPRAZOLAM 0.25 MG TABLET PO PRN ×2 (07:47→12:12)
[2021-12-02] MEDS: PANTOPRAZOLE 40 MG TABLET.DR PO SCH (07:47)
[2021-12-02 08:00] VITALS: BP 129/78
[2021-12-02] MEDS: DOCUSATE SODIUM 100 MG CAPSULE PO SCH (09:00)
[2021-12-02] MEDS: HEPARIN SODIUM, PORCINE 5000 UNITS/1 ML VIAL SQ SCH (09:00)
[2021-12-02] MEDS: ASPIRIN 81 MG TAB.CHEW PO SCH (09:13)
[2021-12-02] MEDS: ALLOPURINOL 100 MG TABLET PO SCH (09:14)
[2021-12-02] MEDS: FAMOTIDINE (20 MG) 20 MG TABLET PO SCH (09:14)
[2021-12-02] MEDS: ENOXAPARIN SODIUM 30 MG/0.3 ML DISP.SYRIN SQ SCH (10:00)
--- NOTE | 2021-12-02 12:04 | NUR ---
rn note rounds made. pt desaturated to 70s.applied 5 L NC ox at 91%. pt woke up disoriented. placed patient in high fowlers position. pt able to make needs known. reassessed pt o2 sat at 91% currently.
--- NOTE | 2021-12-02 13:00 | NUR ---
rn note pt desaturates to 70-80s, notfied if pt can be switched to simple face mask. agreed simple face mask at 8 L
[2021-12-02 16:00] VITALS: BP 107/60
--- NOTE | 2021-12-02 19:00 | NUR ---
RN NOTE updated condition of patient to daughter. daughter expressed concern of patient in aggressive manner of low urine output and facial swelling. explained the situation to patient that dr would be notified of low urine output and facial swelling. gave no new orders and to use bladder scanner. notified dr. rowan that patient was able to urinate 400 ml.
--- NOTE | 2021-12-02 19:30 | NUR ---
MS RN OPENING NOTE RECEIVED PT IN BED, AWAKE A/0 X4. PT SIMPLE MASK 8L, TOLERATING WELL, NO S/S OF ACUTE DISTRESS, PT HIGH FOWLERS POSITION. IV ON LAC PATENT, INTACT AND FLUSHING WELL. PT ABLE TO MAKE NEEDS KNOWN. ALL SAFETY MEASURES IN PLACE. BED IN LOWEST POSITION AND LOCKED. BED RAILS UP X2, CALL LIGHT WITH IN REACH BED ALARM ON. WILL CONTINUE TO MONITOR THROUGHOUT SHIFT.
--- NOTE | 2021-12-02 19:50 | NUR ---
RN CLOSING NOTE PT A/0 X4. PT ON 8 L SIMPLE FACE MASK AT 96%.pt verbally responsive and able to make needs known. PT HAS ANXIETY. PT HIGH FOWLERS POSITION. IV ON LEFT HAND. PATENT, INTACT AND FLUSHING WELL. NO FLUIDS RUNNING DUE TO MD ORDER. ALL NEEDS MET. ALL SAFETY MEASURES IN PLACE. CALL WITHIN REACH.BED ALARM ON. BED LOCKED AT LOWEST POSITION. SIDE RAILS UP X2. PT HAS LIGHTHEADEDNESS AND DIZZINESS, PT FALL RISK. REINFORCED TEACHING TO PT TO USE CALL LIGHT FOR ANY ASSISTANCE INCLUDING BATHROOM NEEDS, AND BASIC NEEDS.PT VERBALIZED UNDERSTANDING AND AGREED.
--- NOTE | 2021-12-02 19:58 | NUR ---
notified dr. rowan that patient was able to urinate 400 ml. Addendum: 12/02/21 at 1958 by COSMO OLSEN RN will followup and endorse to gis scientist rn
[2021-12-02 20:00] VITALS: BP 122/74
--- NOTE | 2021-12-02 20:20 | NUR ---
2020 Noted patient with saturation in the low 80s, SOB on mild exertion, placed immediately on simple face mask by RT 10 L, HOB kept elevated for max oxygenation. HHN treatment given by RT as ordered. Noted O2 saturation slowly improving to 90s. CLARI Wagoner notified with orders made. Orders noted and carried out, RT notified of new orders.
[2021-12-02] MEDS: ATORVASTATIN 40 MG TABLET PO SCH (21:08)
[2021-12-02] MEDS: CIPROFLOXACIN HCL 500 MG TABLET PO SCH (21:08)
[2021-12-02] MEDS: LATANOPROST EYE DROP 0.005% 2.5 ML BOTTLE EACHEYE SCH (21:09)
--- NOTE | 2021-12-02 22:25 | NUR ---
RT NOTE NEXT HHN TX WILL BE GIVEN ORDERED. 2100 TX NOT GIVEN DUE TO LAST TX AT 1955.
[2021-12-02] MEDS: MORPHINE SULFATE INJ 2 MG/ML DISP.SYRIN IV PRN (23:00)
[2021-12-03] VITALS: BP 130/87
[2021-12-03] MEDS: ALBUTEROL FS 2.5 MG/3 ML VIAL.NEB NEB SCH ×7 (00:05→23:26)
[2021-12-03] MEDS: ALPRAZOLAM 0.25 MG TABLET PO PRN ×2 (01:44→21:22)
[2021-12-03] MEDS: GUAIFENESIN 300 MG/15 ML UDC PO PRN (01:44)
[2021-12-03 04:00] VITALS: BP 122/80
[2021-12-03] MEDS: methylPREDNISolone SOD SUCC 40 MG/ML VIAL IV SCH ×3 (05:33→21:22)
--- NOTE | 2021-12-03 07:02 | NUR ---
HIGH SCHOOL ACADEMIC COACH CLOSING NOTE PT IN BED, AWAKE A/0 X4. PT SIMPLE MASK 8L, TOLERATING WELL FOR THE MOST PART. PT WILL DESAT AND THEN RECOVER IN THE MID 90"S. NO S/S OF ACUTE DISTRESS, PT HIGH FOWLERS POSITION. IV ON LAC SOMETIMES LEAKS. IV RFA #22G, INTACT AND PATENT. PT ABLE TO MAKE NEEDS KNOWN. ALL DUE MEDS GIVEN. ALL SAFETY MEASURES IN PLACE. BED IN LOWEST POSITION AND LOCKED. BED RAILS UP X2, CALL LIGHT WITH IN REACH BED ALARM ON. WILL ENDORSE TO MORNING SHIFT.
[2021-12-03 07:31] LABS: BASOPHILS % (AUTO) 0.1 % (0.0-2.0); HEMATOCRIT 37 % (33-45); HEMOGLOBIN 11.5 g/dL (11.5-14.8); LYMPHOCYTES # (AUTO) 0.3 K/uL (0.8-4.8); LYMPHOCYTES % (AUTO) 3.6 % (20.0-44.0); MEAN CORPUSCULAR HGB CONC 31 g/dl (31.0-36.0); MEAN CORPUSCULAR VOLUME 91 fL (82-100); MONOCYTES # (AUTO) 0.2 K/uL (0.1-1.30); MONOCYTES % (AUTO) 2.2 % (2.0-12.0); NEUTROPHILS # (AUTO) 7.7 K/uL (1.8-8.9); NEUTROPHILS % (AUTO) 94.1 % (43.0-81.0); PLATELET COUNT (AUTO) 158 K/uL (150-450); RED BLOOD CELL COUNT(AUTO) 4.09 MIL/uL (4.0-5.2); WHITE BLOOD COUNT (AUTO) 8.2 K/uL (4.3-11.0)
[2021-12-03 07:47] LABS: CALCIUM, SERUM 8.3 mg/dL (8.5-10.1); CARBON DIOXIDE 21 mmol/L (21-32); CHLORIDE 109 mmol/L (98-107); GLUCOSE 142 mg/dL (74-106); POTASSIUM 4.9 mmol/L (3.5-5.1); SODIUM SERUM 141 mmol/L (136-145); UREA NITROGEN, BLOOD 33 mg/dL (7-18)
[2021-12-03] MEDS: BUDESONIDE RESPULE INH 0.5 MG/2 ML AMPUL.NEB IH SCH ×2 (07:56→15:33)
[2021-12-03 08:00] VITALS: BP 123/76
[2021-12-03] MEDS: DOCUSATE SODIUM 100 MG CAPSULE PO SCH (08:38)
[2021-12-03] MEDS: ALLOPURINOL 100 MG TABLET PO SCH (08:38)
[2021-12-03] MEDS: FAMOTIDINE (20 MG) 20 MG TABLET PO SCH (08:38)
[2021-12-03] MEDS: ASPIRIN 81 MG TAB.CHEW PO SCH (08:38)
[2021-12-03] MEDS: PANTOPRAZOLE 40 MG TABLET.DR PO SCH (08:38)
[2021-12-03] MEDS: ENOXAPARIN SODIUM 30 MG/0.3 ML DISP.SYRIN SQ SCH (10:14)
[2021-12-03 16:00] VITALS: BP 125/76
--- NOTE | 2021-12-03 17:44 | NUR ---
RT Received pt on 10 LPM via simple mask. Pt awake and alert. Attempted to titrate FI02 to nasal cannula- pt did not tolerate and placed back on SM at 8 LPM. Tx given and tolerated well. Spo2 >92%.
--- NOTE | 2021-12-03 19:17 | NUR ---
STEAM BRUSH OPERATOR OPENING NOTE RECEIVED PT IN BED, AWAKE A/0 X4. PT SIMPLE MASK 10L, TOLERATING WELL, NO S/S OF ACUTE DISTRESS, PT HIGH FOWLERS POSITION. IV ON LFA PATENT, INTACT AND FLUSHING WELL. PT ABLE TO MAKE NEEDS KNOWN. ALL SAFETY MEASURES IN PLACE. BED IN LOWEST POSITION AND LOCKED. BED RAILS UP X2, CALL LIGHT WITH IN REACH BED ALARM ON. WILL CONTINUE TO MONITOR THROUGHOUT SHIFT.
--- NOTE | 2021-12-03 19:20 | NUR ---
RN CLOSING NOTE PT IN BED, AWAKE A/0 X3-4. PT SIMPLE MASK 8L, TOLERATING WELL FOR THE MOST PART. PT WILL DESAT AND THEN RECOVER IN THE MID 90"S. PATIENT FORGETS TO PUT THE MASK ON AFTER SHE DRINKS OR EATS, BOWLING BALL FINISHER NURSE IS AWARE OF IT AND WILL MONITOR HER. NO S/S OF ACUTE DISTRESS, PT HIGH FOWLERS POSITION. IV ON LEFT WAS REMOVED BY PATIENT. IV RFA #22G, INTACT AND PATENT. PT ABLE TO MAKE NEEDS KNOWN. ALL DUE MEDS GIVEN. PATIENT DAUGHTER SHANTANU CALLED AND LEFT HER PHONE NUMBER AND ASKED FOR PULMONARY DOCTOR TO CONTACT HER ABOUT HER MOTHER'S OVERALL CONDITION AND DISCHARGE. ALL SAFETY MEASURES IN PLACE. BED IN LOWEST POSITION AND LOCKED. BED RAILS UP X2, CALL LIGHT WITH IN REACH BED ALARM ON. WILL ENDORSE TO BOWLING BALL FINISHER NURSE FOR BRIGHT.
[2021-12-03] MEDS: CIPROFLOXACIN HCL 500 MG TABLET PO SCH (21:22)
[2021-12-03] MEDS: ATORVASTATIN 40 MG TABLET PO SCH (21:22)
[2021-12-03] MEDS: LATANOPROST EYE DROP 0.005% 2.5 ML BOTTLE EACHEYE SCH (21:23)
[2021-12-03] MEDS: MORPHINE SULFATE INJ 2 MG/ML DISP.SYRIN IV PRN (23:02)
[2021-12-04] VITALS: BP 144/75
[2021-12-04] MEDS: GUAIFENESIN 300 MG/15 ML UDC PO PRN ×2 (00:29→22:17)
--- NOTE | 2021-12-04 02:42 | NUR ---
RN NOTE PATIENT STATED HER STOMACH HURT AFTER INSPECTION SIGNS OF BLEEDING. PATIENT HAS A BRUISE ON LOWER RIGHT ABDOMINAL AREA AND INJECTION SITE STARTED TO BLEED.
[2021-12-04] MEDS: ALBUTEROL FS 2.5 MG/3 ML VIAL.NEB NEB SCH ×6 (03:30→23:28)
--- NOTE | 2021-12-04 03:44 | NUR ---
RT Pt refused 3:30AM breathing TX, Pt said she wants to "skip it" and wishes to keep sleeping. Pt SpO2 93% on 10 Simple Mask at this moment.
[2021-12-04 04:00] VITALS: BP 117/79
[2021-12-04] MEDS: methylPREDNISolone SOD SUCC 40 MG/ML VIAL IV SCH ×3 (05:52→20:41)
--- NOTE | 2021-12-04 07:00 | NUR ---
PARLIAMENTARY COUNSEL CLOSING NOTE PT IN BED, AWAKE A/0 X4. PT SIMPLE MASK 10L, TOLERATING WELL FOR THE MOST PART. PT WILL DESAT AND THEN RECOVER IN THE MID 90"S. NO S/S OF ACUTE DISTRESS, PT HIGH FOWLERS POSITION. IV ON IV RFA #22G, INTACT AND PATENT, LAC USABLE. PT ABLE TO MAKE NEEDS KNOWN. ALL DUE MEDS GIVEN. ALL SAFETY MEASURES IN PLACE. BED IN LOWEST POSITION AND LOCKED. BED RAILS UP X2, CALL LIGHT WITH IN REACH BED ALARM ON. WILL ENDORSE TO MORNING SHIFT.
[2021-12-04 07:28] LABS: BASOPHILS % (AUTO) 0.1 % (0.0-2.0); HEMATOCRIT 35 % (33-45); HEMOGLOBIN 10.9 g/dL (11.5-14.8); LYMPHOCYTES # (AUTO) 0.4 K/uL (0.8-4.8); LYMPHOCYTES % (AUTO) 3.8 % (20.0-44.0); MEAN CORPUSCULAR HGB CONC 31 g/dl (31.0-36.0); MEAN CORPUSCULAR VOLUME 90 fL (82-100); MONOCYTES # (AUTO) 0.2 K/uL (0.1-1.30); MONOCYTES % (AUTO) 1.9 % (2.0-12.0); NEUTROPHILS # (AUTO) 8.9 K/uL (1.8-8.9); NEUTROPHILS % (AUTO) 94.2 % (43.0-81.0); PLATELET COUNT (AUTO) 164 K/uL (150-450); RED BLOOD CELL COUNT(AUTO) 3.91 MIL/uL (4.0-5.2); WHITE BLOOD COUNT (AUTO) 9.4 K/uL (4.3-11.0)
[2021-12-04] MEDS: BUDESONIDE RESPULE INH 0.5 MG/2 ML AMPUL.NEB IH SCH ×2 (07:41→15:51)
[2021-12-04 07:52] LABS: CALCIUM, SERUM 8.3 mg/dL (8.5-10.1); CARBON DIOXIDE 21 mmol/L (21-32); CHLORIDE 110 mmol/L (98-107); CREATININE 1.9 mg/dL (0.6-1.3); GLUCOSE 165 mg/dL (74-106); POTASSIUM 4.9 mmol/L (3.5-5.1); SODIUM SERUM 140 mmol/L (136-145); UREA NITROGEN, BLOOD 40 mg/dL (7-18)
[2021-12-04 08:00] VITALS: BP 140/85
[2021-12-04] MEDS: ALLOPURINOL 100 MG TABLET PO SCH (08:39)
[2021-12-04] MEDS: PANTOPRAZOLE 40 MG TABLET.DR PO SCH (08:39)
[2021-12-04] MEDS: DOCUSATE SODIUM 100 MG CAPSULE PO SCH (08:39)
[2021-12-04] MEDS: ASPIRIN 81 MG TAB.CHEW PO SCH (08:39)
[2021-12-04] MEDS: FAMOTIDINE (20 MG) 20 MG TABLET PO SCH (08:39)
[2021-12-04] MEDS: ENOXAPARIN SODIUM 30 MG/0.3 ML DISP.SYRIN SQ SCH (11:05)
[2021-12-04 12:00] VITALS: BP 113/76
[2021-12-04] MEDS: FUROSEMIDE 20 MG/2 ML VIAL IV SCH (13:00)
[2021-12-04 16:00] VITALS: BP 129/84
--- NOTE | 2021-12-04 18:50 | NUR ---
RN CLOSING NOTE PT IN BED, AWAKE A/0 X3-4. PT SIMPLE MASK 10L, TOLERATING WELL FOR THE MOST PART. PT WILL DESAT AND THEN RECOVER IN THE MID 90"S. PATIENT FORGETS TO PUT THE MASK ON AFTER SHE DRINKS OR EATS, CLIPPING MARKER NURSE IS AWARE OF IT AND WILL MONITOR HER. NO S/S OF ACUTE DISTRESS, PT HIGH FOWLERS POSITION. IV ON LEFT WAS REMOVED BY PATIENT. IV RFA #22G, INTACT AND PATENT. PT ABLE TO MAKE NEEDS KNOWN. ALL DUE MEDS GIVEN. PATIENT DAUGHTER SHANTANU JUST CALLED AND STATED THAT SHE ALREADY SPOKE WITH DR. JIMENEZ ABOUT HER MOM. TODAY AROUND 1800 I NOTICED THAT PATIENT HAS ONLY ONE EAR RINGS ON HER RIGHT EAR ONLY. ALL SAFETY MEASURES IN PLACE. BED IN LOWEST POSITION AND LOCKED. BED RAILS UP X2, CALL LIGHT WITH IN REACH BED ALARM ON. WILL ENDORSE TO CLIPPING MARKER NURSE FOR BRIGHT.
--- NOTE | 2021-12-04 19:30 | NUR ---
TILT TRAY DRIVER NOTE PT IN BED SCREAMING THAT NO ONE IS COMING TO CLEAN HER UP. INCONTINENCE CARE GIVEN. PT WAS SOAKING WET. BED BATH GIVEN ALSO CHANGED ALL LINENS. PT REMAIN ON 10 L SM O2 SAT UP AND DOWN 93-98%. AT TIMES PT KEPT ON REMOVING THE MASK. REMINDED HER NOT TO DO THAT. ON TELE ST HR 104. ALL NEEDS ATTENDED. VSS. CONTINUE TO MONITOR HER.
[2021-12-04 20:00] VITALS: BP 122/78
[2021-12-04] MEDS: ALPRAZOLAM 0.25 MG TABLET PO PRN (20:43)
--- NOTE | 2021-12-04 20:43 | NUR ---
FRUIT HARVESTER MACHINE OPERATOR NOTE PT IS ANXIOUS AND KEPT ON SCREAMING, ASKING FOR ANXIETY MED. XANAX 0.5 MG PO GIVEN. CONTINUE TO MONITOR HER.
[2021-12-04] MEDS: ATORVASTATIN 40 MG TABLET PO SCH (21:01)
[2021-12-04] MEDS: LATANOPROST EYE DROP 0.005% 2.5 ML BOTTLE EACHEYE SCH (21:01)
[2021-12-05] VITALS: BP 133/80
[2021-12-05] MEDS: ALBUTEROL FS 2.5 MG/3 ML VIAL.NEB NEB SCH ×6 (03:24→23:07)
[2021-12-05 04:00] VITALS: BP 150/94
[2021-12-05] MEDS: methylPREDNISolone SOD SUCC 40 MG/ML VIAL IV SCH ×3 (04:43→21:09)
--- NOTE | 2021-12-05 06:39 | NUR ---
INSPECTOR CANNED FOOD RECONDITIONING NOTE PT IN BED AWAKE. NO DISTRESS OR DISCOMFORT NOTED, NO S/S OF PAIN NOTED. ON TELE S TECH HR 106 KEPT HER DRY AND CLEAN. SIDE RAILS UP X 2 WILL ENDORSE TO DAY SHIFT NURSE FOR CONTINUE TO CARE.
[2021-12-05] MEDS: BUDESONIDE RESPULE INH 0.5 MG/2 ML AMPUL.NEB IH SCH ×2 (07:42→15:20)
[2021-12-05 08:00] VITALS: BP 132/76
[2021-12-05] MEDS: ALLOPURINOL 100 MG TABLET PO SCH (08:19)
[2021-12-05] MEDS: ASPIRIN 81 MG TAB.CHEW PO SCH (08:19)
[2021-12-05] MEDS: FUROSEMIDE 20 MG/2 ML VIAL IV SCH (08:19)
[2021-12-05] MEDS: PANTOPRAZOLE 40 MG TABLET.DR PO SCH (08:19)
[2021-12-05] MEDS: FAMOTIDINE (20 MG) 20 MG TABLET PO SCH (08:19)
[2021-12-05] MEDS: DOCUSATE SODIUM 100 MG CAPSULE PO SCH (08:19)
[2021-12-05 08:44] LABS: HEMATOCRIT 39 % (33-45); HEMOGLOBIN 11.7 g/dL (11.5-14.8); LYMPHOCYTES # (AUTO) 0.5 K/uL (0.8-4.8); LYMPHOCYTES % (AUTO) 3.7 % (20.0-44.0); MEAN CORPUSCULAR HGB CONC 30 g/dl (31.0-36.0); MEAN CORPUSCULAR VOLUME 90 fL (82-100); MONOCYTES # (AUTO) 0.3 K/uL (0.1-1.30); MONOCYTES % (AUTO) 2.5 % (2.0-12.0); NEUTROPHILS # (AUTO) 11.3 K/uL (1.8-8.9); NEUTROPHILS % (AUTO) 93.8 % (43.0-81.0); PLATELET COUNT (AUTO) 172 K/uL (150-450); RED BLOOD CELL COUNT(AUTO) 4.32 MIL/uL (4.0-5.2)
[2021-12-05] MEDS: ALPRAZOLAM 0.25 MG TABLET PO PRN ×2 (09:17→21:20)
[2021-12-05] MEDS: MORPHINE SULFATE INJ 2 MG/ML DISP.SYRIN IV PRN (09:52)
--- NOTE | 2021-12-05 10:29 | NUR ---
RN NOTE PT PLACED ON HFNC 35L 40%. PT TOLERATING WELL
[2021-12-05] MEDS: ENOXAPARIN SODIUM 30 MG/0.3 ML DISP.SYRIN SQ SCH (10:33)
[2021-12-05 10:36] LABS: CALCIUM, SERUM 8.4 mg/dL (8.5-10.1); CARBON DIOXIDE 22 mmol/L (21-32); CHLORIDE 107 mmol/L (98-107); CREATININE 1.9 mg/dL (0.6-1.3); GLUCOSE 142 mg/dL (74-106); POTASSIUM 4.3 mmol/L (3.5-5.1); SODIUM SERUM 139 mmol/L (136-145); UREA NITROGEN, BLOOD 42 mg/dL (7-18)
--- NOTE | 2021-12-05 11:00 | NUR ---
RN NOTE PUREWICK PLACED PER PT REQUEST.
[2021-12-05 12:00] VITALS: BP 130/84
[2021-12-05 16:00] VITALS: BP 110/63
--- NOTE | 2021-12-05 16:37 | NUR ---
PATIENT IS ALERT AND RESPONSIVE TO SOME DEGREE. PATIENT WERE FOUND WITH 10 L O2 SM EARLIER BEFORE DR. MANN ORDERED HIFLOW AND TO KEEP PATIENT BTW 88 - 90%. Addendum: 12/05/21 at 1640 by GIANLUCA HENDERSON RT Amended: Links added.
[2021-12-05 20:00] VITALS: BP 117/71
[2021-12-05] MEDS: ATORVASTATIN 40 MG TABLET PO SCH (21:09)
[2021-12-05] MEDS: LATANOPROST EYE DROP 0.005% 2.5 ML BOTTLE EACHEYE SCH (21:12)
--- NOTE | 2021-12-05 23:21 | NUR ---
RN NOTE INFORMED KEVIN OWUSU ELEMENTARY TEACHER THAT PATIENT IS REQUESTING SOMETHING FOR SLEEP, NO PRNS AVAILABLE. RECEIVED ORDER FOR RESTORIL 15MG QHS PRN. NOTED AND CARRIED OUT.
[2021-12-06] VITALS: BP 124/71
[2021-12-06] MEDS: GUAIFENESIN 300 MG/15 ML UDC PO PRN (00:05)
[2021-12-06] MEDS: ALBUTEROL FS 2.5 MG/3 ML VIAL.NEB NEB SCH ×6 (03:53→23:30)
[2021-12-06 04:00] VITALS: BP 109/70
[2021-12-06] MEDS: methylPREDNISolone SOD SUCC 40 MG/ML VIAL IV SCH ×2 (05:39→21:11)
[2021-12-06] MEDS: ALPRAZOLAM 0.25 MG TABLET PO PRN (05:47)
[2021-12-06] MEDS: BUDESONIDE RESPULE INH 0.5 MG/2 ML AMPUL.NEB IH SCH ×2 (06:38→16:29)
--- NOTE | 2021-12-06 07:01 | NUR ---
RN CLOSING NOTE PATIENT RESTING IN BED. A/OX4, ON HF NC 25L 30%. PATIENT GET SOB AND DESATS WHEN TALKING MOVING OR AMBULATING. SINUS TACHYCARDIA ON THE MONITOR. LOW 110S. PRN XANAX GIVEN AAS WELL ROBITUSSIN FOR COUGH. PLan to continue breathing tx, steriods, lasix as tolerated and keep o2 greater than 88%. pending pulm consult.
[2021-12-06 08:00] VITALS: BP 112/74
[2021-12-06 08:12] LABS: BASOPHILS % (AUTO) 0.1 % (0.0-2.0); HEMATOCRIT 39 % (33-45); HEMOGLOBIN 12.1 g/dL (11.5-14.8); LYMPHOCYTES # (AUTO) 0.5 K/uL (0.8-4.8); LYMPHOCYTES % (AUTO) 5.1 % (20.0-44.0); MEAN CORPUSCULAR HGB CONC 31 g/dl (31.0-36.0); MEAN CORPUSCULAR VOLUME 90 fL (82-100); MONOCYTES # (AUTO) 0.3 K/uL (0.1-1.30); MONOCYTES % (AUTO) 2.9 % (2.0-12.0); NEUTROPHILS # (AUTO) 9.9 K/uL (1.8-8.9); NEUTROPHILS % (AUTO) 91.9 % (43.0-81.0); PLATELET COUNT (AUTO) 161 K/uL (150-450); RED BLOOD CELL COUNT(AUTO) 4.33 MIL/uL (4.0-5.2); WHITE BLOOD COUNT (AUTO) 10.7 K/uL (4.3-11.0)
[2021-12-06 08:30] LABS: CARBON DIOXIDE 25 mmol/L (21-32); CHLORIDE 106 mmol/L (98-107); CREATININE 1.9 mg/dL (0.6-1.3); GLUCOSE 142 mg/dL (74-106); POTASSIUM 4.4 mmol/L (3.5-5.1); SODIUM SERUM 136 mmol/L (136-145); UREA NITROGEN, BLOOD 48 mg/dL (7-18)
[2021-12-06] MEDS: PANTOPRAZOLE 40 MG TABLET.DR PO SCH (09:30)
[2021-12-06] MEDS: ALLOPURINOL 100 MG TABLET PO SCH (09:30)
[2021-12-06] MEDS: ASPIRIN 81 MG TAB.CHEW PO SCH (09:30)
[2021-12-06] MEDS: DOCUSATE SODIUM 100 MG CAPSULE PO SCH (09:30)
[2021-12-06] MEDS: FUROSEMIDE 20 MG/2 ML VIAL IV SCH (09:30)
[2021-12-06] MEDS: FAMOTIDINE (20 MG) 20 MG TABLET PO SCH (09:30)
[2021-12-06 12:00] VITALS: BP 137/85
[2021-12-06] MEDS: ENOXAPARIN SODIUM 30 MG/0.3 ML DISP.SYRIN SQ SCH (12:32)
[2021-12-06 16:00] VITALS: BP 121/82
--- NOTE | 2021-12-06 19:10 | NUR ---
DESKTOP SUPPORT ASSOCIATE OPENING NOTE RECEIVED PT IN BED, AWAKE A/0 X4. PT HIGH FLOW CANULA @25% FIO2, TOLERATING WELL, NO S/S OF ACUTE DISTRESS, PT HIGH FOWLERS POSITION. IV ON LFA PATENT, INTACT AND FLUSHING WELL. PT ABLE TO MAKE NEEDS KNOWN. ALL SAFETY MEASURES IN PLACE. BED IN LOWEST POSITION AND LOCKED. BED RAILS UP X2, CALL LIGHT WITH IN REACH BED ALARM ON. WILL CONTINUE TO MONITOR THROUGHOUT SHIFT.
--- NOTE | 2021-12-06 19:53 | NUR ---
RN CLOSING NOTE PATIENT RESTING IN BED. A/OX4, ON HF NC 25L 30%. PATIENT GET SOB AND DESATS WHEN TALKING MOVING OR AMBULATING. SINUS TACHYCARDIA ON THE MONITOR WITH HR OF 104. ALL SAFETY MEASURES IN PLACE, ALL LIGHT WITHIN REACH, BED LOCKED IN LOWEST POSITION. WILL ENDORSE CONTINUITY OF CARE TO MECHANICAL SPECIALIST NURSE.
[2021-12-06 20:00] VITALS: BP 115/81
[2021-12-06] MEDS: ATORVASTATIN 40 MG TABLET PO SCH (21:11)
[2021-12-06] MEDS: LATANOPROST EYE DROP 0.005% 2.5 ML BOTTLE EACHEYE SCH (21:14)
[2021-12-06] MEDS: TEMAZEPAM 15 MG CAPSULE PO PRN (22:57)
[2021-12-07] VITALS: BP 116/73
--- NOTE | 2021-12-07 01:10 | NUR ---
RN NOTES PATIENT SATURATION IS 84% REFERRED TO DR DANGELO WITH NEW ORDER TO GIVE ALBUTEROL INHALATION 1X DOSE.
[2021-12-07] MEDS ORDERED: ALBUTEROL FS 2.5 MG/3 ML VIAL.NEB NEB PRN (01:30)
[2021-12-07] MEDS: ALBUTEROL FS 2.5 MG/3 ML VIAL.NEB NEB SCH ×6 (01:31→23:30)
[2021-12-07 04:00] VITALS: BP 111/71
--- NOTE | 2021-12-07 06:44 | NUR ---
RN NOTES PATIENT STILL ON HF@25L 30% FIO2. sTILL WITH EPISODES OF DESATURATIONG DURING THE NIGHT WHEN USING COMMODE AND TALKING. ALL SAFETY MEASURES IN PLACE AT ALL TIMES. HOB ELEVATED. CALL LIGHT WITHIN REACH
[2021-12-07 06:54] LABS: HEMATOCRIT 37 % (33-45); HEMOGLOBIN 11.6 g/dL (11.5-14.8); LYMPHOCYTES # (AUTO) 0.6 K/uL (0.8-4.8); LYMPHOCYTES % (AUTO) 5.4 % (20.0-44.0); MEAN CORPUSCULAR HGB CONC 32 g/dl (31.0-36.0); MEAN CORPUSCULAR VOLUME 87 fL (82-100); MONOCYTES # (AUTO) 0.4 K/uL (0.1-1.30); MONOCYTES % (AUTO) 3.4 % (2.0-12.0); NEUTROPHILS % (AUTO) 91.2 % (43.0-81.0); PLATELET COUNT (AUTO) 165 K/uL (150-450); RED BLOOD CELL COUNT(AUTO) 4.21 MIL/uL (4.0-5.2); WHITE BLOOD COUNT (AUTO) 10.9 K/uL (4.3-11.0)
[2021-12-07 07:04] LABS: CALCIUM, SERUM 7.9 mg/dL (8.5-10.1); CARBON DIOXIDE 28 mmol/L (21-32); CHLORIDE 105 mmol/L (98-107); CREATININE 1.7 mg/dL (0.6-1.3); GLUCOSE 150 mg/dL (74-106); POTASSIUM 3.9 mmol/L (3.5-5.1); SODIUM SERUM 141 mmol/L (136-145); UREA NITROGEN, BLOOD 48 mg/dL (7-18)
--- NOTE | 2021-12-07 07:05 | NUR ---
ENERGY DERIVATIVES TRADER OPENING NOTE RECEIVED PT IN BED, AWAKE A/0 X4. PT BREATHING ON HIGH FLOW NASAL CANULA @25% FIO2, TOLERATING WELL, NO S/S OF ACUTE DISTRESS, PT HIGH FOWLERS POSITION. IV ON LFA PATENT, INTACT AND FLUSHING WELL. PT ABLE TO MAKE NEEDS KNOWN. ALL SAFETY MEASURES IN PLACE. BED IN LOWEST POSITION AND LOCKED. BED RAILS UP X2, CALL LIGHT WITH IN REACH BED ALARM ON. WILL CONTINUE TO MONITOR THROUGHOUT SHIFT.
[2021-12-07 08:00] VITALS: BP 144/91
[2021-12-07] MEDS: PANTOPRAZOLE 40 MG TABLET.DR PO SCH (08:04)
[2021-12-07] MEDS: BUDESONIDE RESPULE INH 0.5 MG/2 ML AMPUL.NEB IH SCH ×2 (08:10→16:04)
[2021-12-07] MEDS: ENOXAPARIN SODIUM 30 MG/0.3 ML DISP.SYRIN SQ SCH (10:16)
[2021-12-07] MEDS: methylPREDNISolone SOD SUCC 40 MG/ML VIAL IV SCH ×2 (10:16→20:58)
[2021-12-07] MEDS: ASPIRIN 81 MG TAB.CHEW PO SCH (10:17)
[2021-12-07] MEDS: DOCUSATE SODIUM 100 MG CAPSULE PO SCH (10:17)
[2021-12-07] MEDS: FAMOTIDINE (20 MG) 20 MG TABLET PO SCH (10:17)
[2021-12-07] MEDS: ALPRAZOLAM 0.25 MG TABLET PO PRN ×2 (10:17→20:58)
[2021-12-07] MEDS: ALLOPURINOL 100 MG TABLET PO SCH (10:17)
[2021-12-07 12:00] VITALS: BP 134/81
--- NOTE | 2021-12-07 12:00 | NUR ---
RN NOTE PT IS BREATHING ON 4L NASAL CANULA AT 100%. WILL CONTINUE TO MONITOR
[2021-12-07 16:00] VITALS: BP 112/73
--- NOTE | 2021-12-07 19:25 | NUR ---
RN NOTE RECEIVED PT FOR CONTINUITY OF CARE. PATIENT A/OX4 IN NO S/SX OF ACUTE DISTRESS AT THIS TIME; CURRENTLY ON4L OF O2 VIA NC ; WITH 02 SAT 92% AT THIS TIME. WITH IV ACCESS ON L WRIST#20 PATENT, INTACT AND FLUSHING WELL. ENSURE SAFETY MEASURES WITHIN THE SHIFT. PATIENT BED ALARM IS ON. HEAD OF BED ELEVATED. BED IS LOCKED, IN LOWEST POSITION AND SIDE RAILS UP. CALL LIGHT WITHIN REACH OF THE PATIENT. WILL CONTINUE TO MONITOR AND REASSESS FOR ANY CHANGES AND WILL CARRY OUT ANY ONGOING AND ACTIVE MD ORDER.
--- NOTE | 2021-12-07 19:36 | NUR ---
OIL PUMPER CLOSING NOTE RECEIVED PT IN BED, AWAKE A/0 X4. PT BREATHING ON NASAL CANULA 4L TOLERATING WELL, NO S/S OF ACUTE DISTRESS, PT HIGH FOWLERS POSITION. IV ON LFA PATENT, INTACT AND FLUSHING WELL. PT ABLE TO MAKE NEEDS KNOWN. ALL SAFETY MEASURES IN PLACE. BED IN LOWEST POSITION AND LOCKED. BED RAILS UP X2, CALL LIGHT WITHIN REACH BED ALARM ON. WILL ENDORSE CONTINUITY OF CARE TO ANGLE SHEARER.
[2021-12-07 20:00] VITALS: BP 110/52
[2021-12-07] MEDS: LATANOPROST EYE DROP 0.005% 2.5 ML BOTTLE EACHEYE SCH (21:02)
[2021-12-07] MEDS: ATORVASTATIN 40 MG TABLET PO SCH (21:05)
[2021-12-08] VITALS: BP 118/68
--- NOTE | 2021-12-08 00:10 | NUR ---
RT pt refused neb tx. no sob, no resp distress. sat 95%. notified nandini shelby.
[2021-12-08] MEDS: ALBUTEROL FS 2.5 MG/3 ML VIAL.NEB NEB SCH ×5 (03:24→20:07)
[2021-12-08] MEDS: TEMAZEPAM 15 MG CAPSULE PO PRN ×2 (03:39→23:26)
[2021-12-08 04:00] VITALS: BP 125/70
--- NOTE | 2021-12-08 04:00 | NUR ---
RN NOTES PATIENT REMAINED TO BE IN NO SIGNS OF ACUTE RESPIRATORY DISTRESS , SAFE ENVIRONMENT MAINTAINED FOR PT. AM PATIENT CARE ASSISTANCE RENDERED. WILL CONTINUE TO MONITOR AND REASSESS FOR ANY CHANGES THROUGHOUT THE SHIFT.
--- NOTE | 2021-12-08 04:30 | NUR ---
RN NOTES NEW IV LINE SECURED ON R HAND#24, PATENT, INTACT AND FLUSHING WELL.
--- NOTE | 2021-12-08 06:40 | NUR ---
RN CLOSING NOTE: PATIENT REMAINS IN ROOM IN NO SIGNS OF RESPIRATORY DISTRESS, PATIENT NOW ON 3L OF 02 VIA NC ;TOLERATING WELL SATURATING @ >95% SP02. SAFETY MEASURES IMPLEMENTED, BED IN LOWEST POSITION, LOCKED, SIDE RAILS UP, CALL LIGHT WITHIN REACH. ALL NEEDS AND ORDERS ADDRESSED DURING THE SHIFT. IV ACCESS MAINTAINED INTACT, SECURED AND FLUSHING WELL. ALL DUE MEDS GIVEN ORDERED & SCHEDULED ; PATIENT TOLERATED WELL. PATIENT KEPT CLEAN AND COMFORTABLE WITHIN THE SHIFT. PATIENT ENDORSED TO INCOMING SHIFT RN WITH STABLE VITAL SIGN AND FOR CONTINUITY OF CARE.
--- NOTE | 2021-12-08 07:19 | NUR ---
RN OPENING NOTE RECEIVED PATIENT IN ROOM IN NO SIGNS OF RESPIRATORY DISTRESS, PATIENT BREATHING ON 4L OF 02 VIA NC. ALL SAFETY MEASURES IN PLACE: BED LOCKED IN LOWEST POSITION, SIDE RAILS UP, CALL LIGHT WITHIN REACH. WILL CONTINUE TO MONITOR THROUGHOUT SHIFT.
[2021-12-08] MEDS: PANTOPRAZOLE 40 MG TABLET.DR PO SCH (07:32)
[2021-12-08 08:00] VITALS: BP 137/78
[2021-12-08] MEDS: ALPRAZOLAM 0.25 MG TABLET PO PRN ×2 (08:15→20:04)
[2021-12-08] MEDS: DOCUSATE SODIUM 100 MG CAPSULE PO SCH (08:15)
[2021-12-08] MEDS: ALLOPURINOL 100 MG TABLET PO SCH (08:15)
[2021-12-08] MEDS: methylPREDNISolone SOD SUCC 40 MG/ML VIAL IV SCH ×2 (08:15→21:17)
[2021-12-08] MEDS: FAMOTIDINE (20 MG) 20 MG TABLET PO SCH (08:15)
[2021-12-08] MEDS: ASPIRIN 81 MG TAB.CHEW PO SCH (08:15)
[2021-12-08] MEDS: BUDESONIDE RESPULE INH 0.5 MG/2 ML AMPUL.NEB IH SCH ×2 (09:04→15:56)
[2021-12-08] MEDS: ENOXAPARIN SODIUM 30 MG/0.3 ML DISP.SYRIN SQ SCH (10:10)
[2021-12-08] MEDS: FUROSEMIDE 40 MG/4 ML VIAL IV ONE ×2 (11:00→11:43)
[2021-12-08 12:00] VITALS: BP 129/83
--- NOTE | 2021-12-08 13:05 | NUR ---
RN NOTE PATIENT PULLED OUT IV, ATTEMPTED TO START IV, PT IS A HARD STICK. PULLED OUT LASIX FROM PYXYS, WITHDREW FROM VIAL, WILL DISCARD IN MED ROOM. ASKED DR APPIAH TO CHANGE ROUTE TO PO UNTIL IV ACCESS IS PLACED.
--- NOTE | 2021-12-08 15:52 | NUR ---
RN NOTE FRANDY MIDLINE PLACED. PT IS BREATHING ON A NON-REBREATHER AT THIS TIME, 02 SAT OF 99%.
[2021-12-08 16:00] VITALS: BP 130/78
--- NOTE | 2021-12-08 18:53 | NUR ---
RN CLOSING NOTE: PATIENT REMAINS IN BED NO SIGNS OF RESPIRATORY DISTRESS, PATIENT BREATHING ON 4L OF 02 VIA NC ;TOLERATING WELL SATURATING. SAFETY MEASURES IMPLEMENTED, BED IN LOWEST POSITION, LOCKED, SIDE RAILS UP, CALL LIGHT WITHIN REACH. ALL NEEDS AND ORDERS ADDRESSED DURING THE SHIFT. IV ACCESS THEO MIDLINE INTACT AND FLUSHED. ALL DUE MEDS GIVEN ORDERED & SCHEDULED ; PATIENT TOLERATED WELL. PATIENT KEPT CLEAN AND COMFORTABLE WITHIN THE SHIFT. PATIENT ENDORSED TO INCOMING SHIFT RN WITH STABLE VITAL SIGN AND FOR CONTINUITY OF CARE.
[2021-12-08 20:00] VITALS: BP 133/89
--- NOTE | 2021-12-08 20:27 | NUR ---
TRANSFORMATION SPECIALIST OPENING NOTE PATIENT AWAKE IN BED WITH FAMILY AT BEDSIDE, PT ALERT/ORIENTED X 4, PT ABLE TO MAKE NEEDS KNOWN. PT STABLE ON 4 LPM OF OXYGEN VIA NASAL CANNULA, NO S/S OF DISTRESS OR SOB NOTED, BREATHING EVEN AND UNLABORED, SPO2: 97%. PT ON TELE MONITOR READING SINUS TACH, HR: 110. PT REQUESTING XANAX, MEDICATION GIVEN ORDERED. THEO MIDLINE INTACT AND SALINE LOCKED. SAFETY MEASURES IN PLACE: CALL LIGHT WITHIN REACH, SIDE RAILS UP X 2, BED LOCKED IN LOWEST POSITION, BED ALARM ON. WILL CONTINUE TO MONITOR PATIENT
--- NOTE | 2021-12-08 21:15 | NUR ---
SPECIALIZED LANGUAGE INSTRUCTOR NOTE PT SPO2 DOWN TO 77% AFTER USING BEDSIDE COMMODE. PATIENT PLACED ON SIMPLE MASK 6 L, RT CALLED AND GAVE BREATHING TX. PATIENT TITRATED DOWN TO 6 LPM OXYGEN VIA NASAL CANNULA BY RT, SPO2: 94% AT THIS TIME. WILL CONTINUE TO MONITOR
[2021-12-08] MEDS: ATORVASTATIN 40 MG TABLET PO SCH (21:17)
[2021-12-08] MEDS: LATANOPROST EYE DROP 0.005% 2.5 ML BOTTLE EACHEYE SCH (21:36)
[2021-12-09] VITALS: BP 146/82
[2021-12-09] MEDS: GUAIFENESIN 300 MG/15 ML UDC PO PRN ×3 (00:36→19:47)
--- NOTE | 2021-12-09 00:37 | NUR ---
INFORMATICS EDUCATOR NOTE PATIENT REQUESTING COUGH MEDICINE. ROBITUSSIN 100 MG PO GIVEN ORDERED. WILL CONTINUE TO MONITOR PATIENT
--- NOTE | 2021-12-09 00:44 | NUR ---
BILLET SHEARER NOTE PATIENT REFUSED ROBITUSSIN, STATES SHE WANTS PROMETHAZINE/CODEINE INSTEAD. WASTED MED WITH ALLEGRA RODRIGUEZ. WILL ADMINISTER PROMETHAZINE/CODEINE ORDERED
[2021-12-09] MEDS: CODEINE/PROMETHAZINE HCL 5 ML UDC PO PRN (00:48)
[2021-12-09] MEDS: ALBUTEROL FS 2.5 MG/3 ML VIAL.NEB NEB SCH ×7 (02:10→23:09)
[2021-12-09 04:00] VITALS: BP 159/91
--- NOTE | 2021-12-09 06:45 | NUR ---
TECHNOLOGY TRAINER CLOSING NOTE PATIENT AWAKE IN BED, PT ALERT/ORIENTED X 4, PT ABLE TO MAKE NEEDS KNOWN. PT STABLE ON 6 LPM OF OXYGEN VIA NASAL CANNULA, NO S/S OF DISTRESS OR SOB NOTED, BREATHING EVEN AND UNLABORED, SPO2: 95% AT THIS TIME; PATIENT DESATURATES WHEN SHE GETS UP TO USE BSC. PT ON TELE MONITOR READING SINUS RHYTHM, HR: 92. MEDICATIONS GIVEN ORDERED, PT NEEDS MET THROUGHOUT SHIFT. THEO MIDLINE INTACT AND SALINE LOCKED. SAFETY MEASURES IN PLACE: CALL LIGHT WITHIN REACH, SIDE RAILS UP X 2, BED LOCKED IN LOWEST POSITION, BED ALARM ON. WILL ENDORSE TO DAYSHIFT NURSE FOR CONTINUITY OF CARE
[2021-12-09 06:49] LABS: BASOPHILS % (AUTO) 0.1 % (0.0-2.0); HEMATOCRIT 38 % (33-45); HEMOGLOBIN 11.7 g/dL (11.5-14.8); LYMPHOCYTES # (AUTO) 0.3 K/uL (0.8-4.8); LYMPHOCYTES % (AUTO) 2.4 % (20.0-44.0); MEAN CORPUSCULAR HGB CONC 31 g/dl (31.0-36.0); MEAN CORPUSCULAR VOLUME 88 fL (82-100); MONOCYTES # (AUTO) 0.6 K/uL (0.1-1.30); NEUTROPHILS # (AUTO) 13.1 K/uL (1.8-8.9); NEUTROPHILS % (AUTO) 93.5 % (43.0-81.0); PLATELET COUNT (AUTO) 174 K/uL (150-450); RED BLOOD CELL COUNT(AUTO) 4.33 MIL/uL (4.0-5.2)
[2021-12-09 07:07] LABS: CALCIUM, SERUM 7.9 mg/dL (8.5-10.1); CARBON DIOXIDE 29 mmol/L (21-32); CHLORIDE 105 mmol/L (98-107); CREATININE 1.4 mg/dL (0.6-1.3); GLUCOSE 138 mg/dL (74-106); MAGNESIUM 1.8 mg/dL (1.8-2.4); SODIUM SERUM 142 mmol/L (136-145); UREA NITROGEN, BLOOD 35 mg/dL (7-18)
[2021-12-09 08:00] VITALS: BP 137/91
--- NOTE | 2021-12-09 08:04 | NUR ---
RN OPENING NOTE PATIENT RECEIVED IN BED, AO X 4, FORGETFUL AND ANXIOUS, ABLE TO RESPONDS ALL STIMULI. IN NO ACUTE DISTRESS NOTED. RESPIRATORY EVEN AND UNLABORED ON OXYGEN AT 6Ls VIA NC. SKIN IS WARM TO TOUCH, KEEP CLEAN/DRY. KEPT ELEVATED HOB FOR ENSURE AIRWAY AND ASPIRATION PRECAUTION, ALSO LOWEST POSITION OF THE BED, S/R UP X 3, BED ALARM IS ON AT ALL THE TIMES. ALL SAFETY PRECAUTION APPLIED. CALL LIGHT WITHIN REACH, WILL CONTINUE TO MONITOR.
[2021-12-09] MEDS: BUDESONIDE RESPULE INH 0.5 MG/2 ML AMPUL.NEB IH SCH ×2 (09:22→14:46)
[2021-12-09] MEDS: DOCUSATE SODIUM 100 MG CAPSULE PO SCH (09:46)
[2021-12-09] MEDS: FAMOTIDINE (20 MG) 20 MG TABLET PO SCH (09:46)
[2021-12-09] MEDS: ALLOPURINOL 100 MG TABLET PO SCH (09:46)
[2021-12-09] MEDS: methylPREDNISolone SOD SUCC 40 MG/ML VIAL IV SCH ×2 (09:46→21:02)
[2021-12-09] MEDS: ASPIRIN 81 MG TAB.CHEW PO SCH (09:46)
[2021-12-09] MEDS: PANTOPRAZOLE 40 MG TABLET.DR PO SCH (09:46)
[2021-12-09] MEDS: ENOXAPARIN SODIUM 30 MG/0.3 ML DISP.SYRIN SQ SCH (09:47)
[2021-12-09 12:00] VITALS: BP 130/80
[2021-12-09] MEDS: ALPRAZOLAM 0.25 MG TABLET PO PRN (15:55)
[2021-12-09 16:00] VITALS: BP 119/67
--- NOTE | 2021-12-09 18:00 | NUR ---
RN CLOSING NOTE PATIENT IN BED RESTING. IN NO ACUTE DISTRESS NOTED. SKIN IS WARM TO TOUCH, KEEP CLEAN/DRY. KEPT ELEVATED HOB FOR ENSURE AIRWAY AND ASPIRATION PRECAUTION. BED IN LOWEST POSITION AND LOCKED. BED ALARM IS ON AT ALL THE TIMES. ALL SAFETY MEASURED IN PLACED. CALL LIGHT WITHIN REACH, WILL ENDORSED TO NEXT SHIFT
--- NOTE | 2021-12-09 19:40 | NUR ---
PATIENT RECEIVED SITTING IN THE COMMODE. AO X 4, EXPERIENCING SOB AND ANXIOUS, PLACED NC AND ADJUSTED O2 TO 6LPM. ABLE TO RESPONDS ALL STIMULI. CLEANED AND ASSISTED BACK TO BED. CLEAN/DRY. SAFETY MEASURES PLACED. HOB ELEVATED TO ENSURE OPEN AIRWAY AND PREVENT ASPIRATION. BED LOCKED IN LOWEST POSITION, S/R UP X 3, BED ALARM IS ON, CALL LIGHT WITHIN REACH, WILL CONTINUE PLAN OF CARE.
[2021-12-09 20:00] VITALS: BP 130/82
[2021-12-09] MEDS: TEMAZEPAM 15 MG CAPSULE PO PRN (21:02)
[2021-12-09] MEDS: ATORVASTATIN 40 MG TABLET PO SCH (21:02)
[2021-12-09] MEDS: LATANOPROST EYE DROP 0.005% 2.5 ML BOTTLE EACHEYE SCH (21:08)
--- NOTE | 2021-12-09 21:11 | NUR ---
RT Pt was found on 10L NC, switched to 6L simple mask, as requested by pt for comfort. Will switch to 6L NC with humidifier.
[2021-12-10] VITALS: BP 122/73
[2021-12-10] MEDS: ALBUTEROL FS 2.5 MG/3 ML VIAL.NEB NEB SCH ×6 (03:25→23:52)
[2021-12-10 04:00] VITALS: BP 120/70
--- NOTE | 2021-12-10 07:08 | NUR ---
PT AWAKE SITTING IN BED. AO X 4, ON NC AT 6LPM. SATTING AT 94%. ABLE TO RESPOND TO ALL STIMULI. HAS THEO ML G18 ON SL. PATENT AND INTACT, FLUSHING WELL. SAFETY MEASURES MAINTAINED, HOB ELEVATED TO ENSURE OPEN AIRWAY AND PREVENT ASPIRATION. BED LOCKED IN LOWEST POSITION, S/R UP X 3, BED ALARM IS ON, CALL LIGHT WITHIN REACH, WILL ENDORSE TO NEXT NURSE ON DUTY FOR CONTINUITY OF CARE.
[2021-12-10] MEDS: PANTOPRAZOLE 40 MG TABLET.DR PO SCH (07:28)
[2021-12-10 07:31] LABS: CALCIUM, SERUM 7.8 mg/dL (8.5-10.1); CARBON DIOXIDE 30 mmol/L (21-32); CHLORIDE 107 mmol/L (98-107); CREATININE 1.5 mg/dL (0.6-1.3); GLUCOSE 144 mg/dL (74-106); POTASSIUM 4.5 mmol/L (3.5-5.1); SODIUM SERUM 142 mmol/L (136-145); UREA NITROGEN, BLOOD 32 mg/dL (7-18)
--- NOTE | 2021-12-10 07:33 | NUR ---
RIGHT OF WAY MAINTENANCE SUPERVISOR OPENING NOTES: RECEIVED PATIENT IN BED, ASLEEP BUT EASILY AROUSES TO VOICE AND TACTILE STIMULI. NO SOB NOTED. ON OXYGEN @ 6L/MIN VIA N/C WITH OXYGEN SATURATION OF 95%. ON SR ON TELE MONITOR WITH HR OF 97. IV ACCESS ON LEFT UPPER ARM MIDLINE INTACT, NO S/S INFILTRATION, FLUSHES WELL. CALL LIGHT WITHIN REACH. BED LOCKED AND IN LOWEST POSITION. ALL SAFETY MEASURES IN PLACE. WILL CONTINUE TO MONITOR PATIENT THROUGHOUT SHIFT.
[2021-12-10 07:42] LABS: BASOPHILS % (AUTO) 0.2 % (0.0-2.0); HEMATOCRIT 35 % (33-45); LYMPHOCYTES # (AUTO) 0.5 K/uL (0.8-4.8); LYMPHOCYTES % (AUTO) 4.1 % (20.0-44.0); MEAN CORPUSCULAR HGB CONC 32 g/dl (31.0-36.0); MEAN CORPUSCULAR VOLUME 87 fL (82-100); MONOCYTES # (AUTO) 0.3 K/uL (0.1-1.30); MONOCYTES % (AUTO) 2.9 % (2.0-12.0); NEUTROPHILS # (AUTO) 10.9 K/uL (1.8-8.9); NEUTROPHILS % (AUTO) 92.8 % (43.0-81.0); PLATELET COUNT (AUTO) 152 K/uL (150-450); RED BLOOD CELL COUNT(AUTO) 3.98 MIL/uL (4.0-5.2); WHITE BLOOD COUNT (AUTO) 11.8 K/uL (4.3-11.0)
[2021-12-10 08:00] VITALS: BP 134/82
[2021-12-10] MEDS: BUDESONIDE RESPULE INH 0.5 MG/2 ML AMPUL.NEB IH SCH ×2 (08:07→16:15)
[2021-12-10] MEDS: FAMOTIDINE (20 MG) 20 MG TABLET PO SCH (09:48)
[2021-12-10] MEDS: ALLOPURINOL 100 MG TABLET PO SCH (09:48)
[2021-12-10] MEDS: ASPIRIN 81 MG TAB.CHEW PO SCH (09:48)
[2021-12-10] MEDS: DOCUSATE SODIUM 100 MG CAPSULE PO SCH (09:48)
[2021-12-10] MEDS: methylPREDNISolone SOD SUCC 40 MG/ML VIAL IV SCH ×2 (09:48→21:14)
[2021-12-10] MEDS: ENOXAPARIN SODIUM 30 MG/0.3 ML DISP.SYRIN SQ SCH (09:50)
--- NOTE | 2021-12-10 10:00 | NUR ---
PER RAINIER PROJECT INTERN, PATIENT REFUSED TO GET UP AND WALK RIGHT NOW. EXPLAINED THE IMPORTANCE BUT STILL INSISTED TO STAY IN BED FOR NOW
[2021-12-10] MEDS: ALPRAZOLAM 0.25 MG TABLET PO PRN ×2 (10:03→17:48)
[2021-12-10 12:00] VITALS: BP 133/76
[2021-12-10 16:00] VITALS: BP 146/69
--- NOTE | 2021-12-10 18:36 | NUR ---
REEL CART OPERATOR CLOSING NOTES: PATIENT IN BED, AWAKE, ALERT, ORIENTED X 4. NO RESPIRATORY DISTRESS NOTED, ON OXYGEN @ 6L/MIN VIA N/C WITH OXYGEN SATURATION OF 91%. ON ST ON TELE MONITOR WITH HR OF 117. PATIENT'S LEFT UPPER MIDLINE INTACT, FLUSHES WELL AND NO S/S INFILTRATION NOTED. CALL LIGHT WITHIN REACH. ALL NEEDS MET AND ANTICIPATED. BED LOCKED AND IN LOWEST POSITION. WILL ENDORSE TO NEXT SHIFT NURSE FOR CONTINUITY OF CARE.
--- NOTE | 2021-12-10 19:50 | NUR ---
STRIP FEEDER OPENING NOTES: RECEIVED PATIENT IN BED, AWAKE A/O X4. ABLE TO MAKE NEEDS KNOWN, ON OXYGEN @ 6L/MIN VIA N/C WITH OXYGEN SATURATION OF 95%. NOTED PT SOB CALLED RT FOR ASSISTANCE AND BREATHING TX GIVEN, ON TELE MONITOR CURRENTLY READING ST AT 111. IV ACCESS ON LEFT UPPER ARM MIDLINE INTACT, PATENT, AND FLUSHING WELL. NO S/S INFILTRATION. SAFTEY PRECAUTIONS IN PLACE; CALL LIGHT WITHIN REACH. BED LOCKED AND IN LOWEST POSITION, COMFORT MEASURES PROVIDED, WILL CONTINUE TO MONITOR PATIENT THROUGHOUT SHIFT.
[2021-12-10 20:00] VITALS: BP 136/80
[2021-12-10] MEDS: LATANOPROST EYE DROP 0.005% 2.5 ML BOTTLE EACHEYE SCH (21:14)
[2021-12-10] MEDS: ATORVASTATIN 40 MG TABLET PO SCH (21:14)
[2021-12-10] MEDS: TEMAZEPAM 15 MG CAPSULE PO PRN (21:20)
[2021-12-11] VITALS: BP 136/86
[2021-12-11 04:00] VITALS: BP 134/81
[2021-12-11] MEDS: ALBUTEROL FS 2.5 MG/3 ML VIAL.NEB NEB SCH ×6 (04:02→23:43)
[2021-12-11 06:23] LABS: HEMATOCRIT 32 % (33-45); HEMOGLOBIN 10.1 g/dL (11.5-14.8); LYMPHOCYTES # (AUTO) 0.5 K/uL (0.8-4.8); LYMPHOCYTES % (AUTO) 5.3 % (20.0-44.0); MEAN CORPUSCULAR HGB CONC 31 g/dl (31.0-36.0); MEAN CORPUSCULAR VOLUME 88 fL (82-100); MONOCYTES # (AUTO) 0.4 K/uL (0.1-1.30); MONOCYTES % (AUTO) 3.9 % (2.0-12.0); NEUTROPHILS # (AUTO) 9.1 K/uL (1.8-8.9); NEUTROPHILS % (AUTO) 90.8 % (43.0-81.0); PLATELET COUNT (AUTO) 130 K/uL (150-450); RED BLOOD CELL COUNT(AUTO) 3.68 MIL/uL (4.0-5.2)
--- NOTE | 2021-12-11 06:41 | NUR ---
GAS UTILITY WORKER CLOSING NOTES: PATIENT REMAINS IN BED, SLEEPING BUT EASILY AROUSABLE TO TOUCH AND VOICE, A/O X4. ABLE TO MAKE NEEDS KNOWN, ON OXYGEN @ 6L/MIN VIA N/C WITH OXYGEN SATURATION OF 95%. NO SOB AND NOT IN DISTRESS, ON TELE MONITOR CURRENTLY READING SR AT 77. IV ACCESS ON LEFT UPPER ARM MIDLINE INTACT, PATENT, AND FLUSHING WELL. NO S/S INFILTRATION. ALL DUE MEDS GIVEN, KEPT DRY AND CLEAN, SAFETY PRECAUTIONS IN PLACE; CALL LIGHT WITHIN REACH. BED LOCKED AND IN LOWEST POSITION, WILL ENDORSE TO AM SHIFT NURSE FOR CONTINUITY OF CARE.
[2021-12-11 06:53] LABS: CALCIUM, SERUM 7.9 mg/dL (8.5-10.1); CARBON DIOXIDE 30 mmol/L (21-32); CHLORIDE 107 mmol/L (98-107); CREATININE 1.4 mg/dL (0.6-1.3); GLUCOSE 155 mg/dL (74-106); POTASSIUM 4.5 mmol/L (3.5-5.1); SODIUM SERUM 143 mmol/L (136-145); UREA NITROGEN, BLOOD 31 mg/dL (7-18)
--- NOTE | 2021-12-11 07:30 | NUR ---
ACADEMIC PHYSICIAN OPENING NOTES: RECEIVED PATIENT IN BED, ASLEEP BUT EASILY AROUSES TO SOUND AND TOUCH. NO RESPIRATORY DISTRESS NOTED AT THIS TIME. ON OXYGEN @ 6L/MIN VIA N/C WITH OXYGEN SATURATION OF 94%. ON SR ON TELE MONITOR WITH HR OF 91. PATIENT'S IV ACCESS ON LEFT UPPER ARM MIDLINE IS INTACT, FLUSHES WELL AND WITH NO S/S INFILTRATION. BED LOCKED AND IN LOWEST POSITION. CALL LIGHT WITHIN REACH. ALL SAFETY MEASURES IMPLEMENTED. WILL CONTINUE TO MONITOR PATIENT THROUGHOUT SHIFT.
[2021-12-11] MEDS: PANTOPRAZOLE 40 MG TABLET.DR PO SCH (07:40)
[2021-12-11 08:00] VITALS: BP 136/83
[2021-12-11] MEDS: BUDESONIDE RESPULE INH 0.5 MG/2 ML AMPUL.NEB IH SCH ×2 (08:00→16:29)
[2021-12-11] MEDS: ALLOPURINOL 100 MG TABLET PO SCH (09:07)
[2021-12-11] MEDS: FAMOTIDINE (20 MG) 20 MG TABLET PO SCH (09:07)
[2021-12-11] MEDS: ASPIRIN 81 MG TAB.CHEW PO SCH (09:07)
[2021-12-11] MEDS: DOCUSATE SODIUM 100 MG CAPSULE PO SCH (09:07)
[2021-12-11] MEDS: ENOXAPARIN SODIUM 30 MG/0.3 ML DISP.SYRIN SQ SCH ×2 (09:08→10:00)
[2021-12-11] MEDS: ACETAMINOPHEN 325 MG TABLET PO PRN (09:47)
[2021-12-11] MEDS: methylPREDNISolone SOD SUCC 40 MG/ML VIAL IV SCH ×2 (11:49→20:23)
[2021-12-11 12:00] VITALS: BP 127/77
--- NOTE | 2021-12-11 13:27 | NUR ---
PATIENT WAS NOTED TO BE VERY ANXIOUS AT THIS TIME AND IS SCREAMING AND YELLING AT THE NURSE. TRIED TO TALK TO THE PATIENT TO DECREASE HER ANXIETY. WILL GIVE ANXIOLYTIC MED ORDERED. CALLED RT TO GIVE BREATHING TREATMENT TO THE PATIENT TO MAKE HER COMFORTABLE. WILL CHECK THE PATIENT AGAIN
[2021-12-11] MEDS: ALPRAZOLAM 0.25 MG TABLET PO PRN ×2 (13:33→20:20)
[2021-12-11 13:56] LABS: ABG BASE EXCESS -2.3 mmol/L; ABG OXYGEN SATURATION 98.4 % (92.0-98.5); ABG PH 7.403 (7.350-7.450); ABG PO2 130.4 mmHg (75.0-100.0); AaDO2 149.5 mmHg; COHb 0.9 % (0.5-1.5); MetHb 0.2 % (0.0-1.5); O2Hb 97.3 % (94.0-97.0); SITE, ABG Right Radial; VENT MODE, BG nasal cannula
[2021-12-11] MEDS: IBUPROFEN 400 MG TABLET PO PRN (13:57)
--- NOTE | 2021-12-11 14:45 | NUR ---
PATIENT NOTED TO BE SLEEPING IN BED WITH OXYGEN @ 6L/MIN VIA N/C WITH OXYGEN SATURATION OF 96%. BREATHING EVEN AND UNLABORED.
[2021-12-11 16:00] VITALS: BP 132/80
--- NOTE | 2021-12-11 18:47 | NUR ---
ARBITRATOR CLOSING NOTES: PATIENT IN BED, AWAKE, ALERT AND ORIENTED X 4. PATIENT IN NO ACUTE DISTRESS AT THIS TIME, NO S/S OF ANXIETY NOTED. ON OXYGEN @ 6L/MIN VIA N/C WITH OXYGEN SATURATION OF 95%. ON ST ON TELE MONITOR WITH HR OF 111. CALL LIGHT WITHIN REACH. BED LOCKED AND IN LOWEST POSITION. HOB KEPT ELEVATED. ALL NEEDS MET AND ANTICIPATED. WILL ENDORSE TO NEXT SHIFT NURSE.
[2021-12-11 20:00] VITALS: BP 122/75
[2021-12-11] MEDS: ATORVASTATIN 40 MG TABLET PO SCH (23:18)
[2021-12-11] MEDS: LATANOPROST EYE DROP 0.005% 2.5 ML BOTTLE EACHEYE SCH (23:21)
[2021-12-11] MEDS: TEMAZEPAM 15 MG CAPSULE PO PRN (23:43)
[2021-12-12] VITALS: BP 141/79
[2021-12-12 04:00] VITALS: BP 143/94
[2021-12-12] MEDS: ALBUTEROL FS 2.5 MG/3 ML VIAL.NEB NEB SCH ×5 (04:20→19:51)
[2021-12-12 05:43] LABS: BASOPHILS % (AUTO) 0.1 % (0.0-2.0); HEMATOCRIT 34 % (33-45); HEMOGLOBIN 10.9 g/dL (11.5-14.8); LYMPHOCYTES # (AUTO) 0.5 K/uL (0.8-4.8); LYMPHOCYTES % (AUTO) 4.9 % (20.0-44.0); MEAN CORPUSCULAR HGB CONC 32 g/dl (31.0-36.0); MEAN CORPUSCULAR VOLUME 87 fL (82-100); MONOCYTES # (AUTO) 0.5 K/uL (0.1-1.30); MONOCYTES % (AUTO) 5.2 % (2.0-12.0); NEUTROPHILS # (AUTO) 8.5 K/uL (1.8-8.9); NEUTROPHILS % (AUTO) 89.8 % (43.0-81.0); PLATELET COUNT (AUTO) 138 K/uL (150-450); RED BLOOD CELL COUNT(AUTO) 3.92 MIL/uL (4.0-5.2); WHITE BLOOD COUNT (AUTO) 9.5 K/uL (4.3-11.0)
[2021-12-12 06:11] LABS: CALCIUM, SERUM 8.2 mg/dL (8.5-10.1); CREATININE 1.3 mg/dL (0.6-1.3); MAGNESIUM 1.8 mg/dL (1.8-2.4); PHOSPHORUS 3.1 mg/dL (2.5-4.9); POTASSIUM 3.9 mmol/L (3.5-5.1)
--- NOTE | 2021-12-12 07:00 | NUR ---
RN CLOSING NOTE: ALERT X3. ON O2 AT 6 LPM NC SATING AT 97. IV ON THEO ML #18 PATENT. NO S/S OF COMPLICATIONS. MEDICATED FOR ANXIETY AND INSOMNIA AND MODERATELY EFFECTIVE. TURNED AND REPOSITIONED WITH PILLOWS. KEPT CLEAN AND COMFORTABLE. HOB ELEVATED SEMI-FOWLERS POSITION. BILATERAL HALF SIDE RAILS UP X2. BED IN LOW POSITION, BED EXIT ALARM, LOCKED, CALL LIGHT IN REACH.
--- NOTE | 2021-12-12 07:30 | NUR ---
RN Closing Report/ Patient AO x4 able to express her concerns. Discussed plan of care patient verbalized agreement. Will continue to monitor throughout shift. All safety precautions taken, call light and table within reach. Patients called and requested status on patients health.
[2021-12-12 08:00] VITALS: BP_SYST 141; BP_SYST 143; BP_DIAS 93; BP_DIAS 94
[2021-12-12] MEDS: BUDESONIDE RESPULE INH 0.5 MG/2 ML AMPUL.NEB IH SCH ×2 (08:14→14:57)
[2021-12-12] MEDS: PANTOPRAZOLE 40 MG TABLET.DR PO SCH (08:18)
[2021-12-12] MEDS: ALLOPURINOL 100 MG TABLET PO SCH (08:35)
[2021-12-12] MEDS: FAMOTIDINE (20 MG) 20 MG TABLET PO SCH (08:35)
[2021-12-12] MEDS: methylPREDNISolone SOD SUCC 40 MG/ML VIAL IV SCH ×2 (08:36→20:48)
[2021-12-12] MEDS: DOCUSATE SODIUM 100 MG CAPSULE PO SCH (08:36)
[2021-12-12] MEDS: ASPIRIN 81 MG TAB.CHEW PO SCH (08:36)
[2021-12-12] MEDS: ENOXAPARIN SODIUM 30 MG/0.3 ML DISP.SYRIN SQ SCH (08:41)
[2021-12-12 12:00] VITALS: BP_SYST 140; BP_SYST 171; BP_DIAS 90
[2021-12-12 16:00] VITALS: BP 135/71
[2021-12-12] MEDS: ALPRAZOLAM 0.25 MG TABLET PO PRN ×2 (16:52→21:13)
--- NOTE | 2021-12-12 18:37 | NUR ---
RN Closing Report/ Patient AOx4, able to express her own concerns not able to express her own concerns. Patients need were attnded to as needed and care was provided. PAtient states she is ready to go home with her family. MAde her aware of discharge planning and the need to meet criteria. Patient remained safe throughout shift. No signs or symptoms of distress. ALl safety precautions taken, call light and table within reach. Patients called and requested status on patients health.
--- NOTE | 2021-12-12 19:15 | NUR ---
MOTORCYCLE MECHANIC APPRENTICE OPEN NOTE: ALERT AND ORIENTED X4. ON 03 18 NASAL CANNULA. LEFT UPPER ARM MIDLINE WITH NO S/S OF COMPLICATIONS. ON TELE MONITOR WITH A READING OF SINUS RHYTHM SINUS TACHY 116. DECLINES PAIN OR DISCOMFORT AT THIS TIME. REPOSITIONED WITH PILLOWS. HOB ELEVATED SEMI-FOWLERS POSITION. BILATERAL HALF SIDE RAILS UP X2. BED IN LOW POSITION, LOCKED, WITH EXIT ALARM ON. CALL LIGHT IN REACH. ISOLATION PRECAUTIONS MAINTAINED.
[2021-12-12 20:00] VITALS: BP 149/78
[2021-12-12] MEDS: LATANOPROST EYE DROP 0.005% 2.5 ML BOTTLE EACHEYE SCH (20:56)
[2021-12-12] MEDS: ATORVASTATIN 40 MG TABLET PO SCH (20:56)
[2021-12-12] MEDS: TEMAZEPAM 15 MG CAPSULE PO PRN (23:55)
[2021-12-13] VITALS: BP 133/81
[2021-12-13] MEDS: ALBUTEROL FS 2.5 MG/3 ML VIAL.NEB NEB SCH ×6 (00:14→20:07)
[2021-12-13 04:00] VITALS: BP 137/78
--- NOTE | 2021-12-13 06:37 | NUR ---
COMMERCIAL ASSISTANT CLOSING NOTE: ALERT AND ORIENTED X4. ON 03 18 NASAL CANNULA ALTERNATING WITH NON REBREATHING MASK. MEDICATED ORDERED TO WITH XANAX TIMES ONE AND EFFECTIVE FOR ANXIETY. LEFT UPPER ARM MIDLINE WITH NO S/S OF COMPLICATIONS. ON TELE MONITOR WITH A READING OF SINUS RHYTHM SINUS TACHY 108- 116. DECLINES PAIN OR DISCOMFORT AT THIS TIME. ABLE TO USE BEDSIDE COMMODE WITH ASSISTANCE. REPOSITIONED WITH PILLOWS. HOB ELEVATED SEMI-FOWLERS POSITION. BILATERAL HALF SIDE RAILS UP X2. BED IN LOW POSITION, LOCKED, WITH EXIT ALARM ON. CALL LIGHT IN REACH. ISOLATION PRECAUTIONS MAINTAINED.
[2021-12-13] MEDS: BUDESONIDE RESPULE INH 0.5 MG/2 ML AMPUL.NEB IH SCH ×2 (07:50→14:31)
[2021-12-13 08:00] VITALS: BP 152/77
[2021-12-13] MEDS: ASPIRIN 81 MG TAB.CHEW PO SCH (08:08)
[2021-12-13] MEDS: methylPREDNISolone SOD SUCC 40 MG/ML VIAL IV SCH ×2 (08:08→21:15)
[2021-12-13] MEDS: DOCUSATE SODIUM 100 MG CAPSULE PO SCH (08:08)
[2021-12-13] MEDS: PANTOPRAZOLE 40 MG TABLET.DR PO SCH (08:08)
[2021-12-13] MEDS: FAMOTIDINE (20 MG) 20 MG TABLET PO SCH (08:08)
[2021-12-13] MEDS: ALLOPURINOL 100 MG TABLET PO SCH (08:08)
[2021-12-13 08:50] LABS: BASOPHILS % (AUTO) 0.2 % (0.0-2.0); HEMATOCRIT 35 % (33-45); HEMOGLOBIN 10.9 g/dL (11.5-14.8); LYMPHOCYTES # (AUTO) 0.9 K/uL (0.8-4.8); LYMPHOCYTES % (AUTO) 6.7 % (20.0-44.0); MEAN CORPUSCULAR HGB CONC 31 g/dl (31.0-36.0); MEAN CORPUSCULAR VOLUME 88 fL (82-100); MONOCYTES # (AUTO) 0.9 K/uL (0.1-1.30); MONOCYTES % (AUTO) 6.8 % (2.0-12.0); NEUTROPHILS # (AUTO) 11.6 K/uL (1.8-8.9); NEUTROPHILS % (AUTO) 86.3 % (43.0-81.0); PLATELET COUNT (AUTO) 142 K/uL (150-450); RED BLOOD CELL COUNT(AUTO) 3.97 MIL/uL (4.0-5.2); WHITE BLOOD COUNT (AUTO) 13.4 K/uL (4.3-11.0)
[2021-12-13 09:10] LABS: CALCIUM, SERUM 8.3 mg/dL (8.5-10.1); CREATININE 1.3 mg/dL (0.6-1.3); MAGNESIUM 1.9 mg/dL (1.8-2.4); POTASSIUM 4.1 mmol/L (3.5-5.1)
[2021-12-13] MEDS: ENOXAPARIN SODIUM 30 MG/0.3 ML DISP.SYRIN SQ SCH (10:00)
[2021-12-13 12:00] VITALS: BP 137/88
[2021-12-13 16:00] VITALS: BP 127/78
[2021-12-13] MEDS: ALPRAZOLAM 0.25 MG TABLET PO PRN (16:38)
--- NOTE | 2021-12-13 19:10 | NUR ---
RN OPENING NOTE RECEIVED PT AWAKE SITTING IN BED. AO X 4, ON NC AT 6LPM. SATING AT 95%.VERBALLY RESPONSIVE. ABLE TO MAKE NEEDS KNOWN. PT THEO GONZALEZ G18 ON SL. PATENT AND INTACT, FLUSHING WELL. PT ON TELE MONITOR SINUS RHYTHM/SINUS TACHYCARDIA. ALL SAFETY MEASURES MAINTAINED, HOB ELEVATED TO ENSURE OPEN AIRWAY AND PREVENT ASPIRATION. BED LOCKED IN LOWEST POSITION, S/R UP X 3, BED ALARM ON, CALL LIGHT WITHIN REACH.
[2021-12-13 20:00] VITALS: BP 118/74
--- NOTE | 2021-12-13 20:09 | NUR ---
RN CLOSING NOTE PT AWAKE SITTING IN BED. AO X 4, ON NC AT 6LPM. SATING AT 97%.VERBALLY RESPONSIVE. ABLE TO MAKE NEEDS KNOWN. PT THEO ML G18 ON SL. PATENT AND INTACT, FLUSHING WELL. PT ON TELE MONITOR SINUS RHYTM/SINUS TACHYCARDIA. NO SIGNS OF PAIN OR DISCOMFORT. PT DAUGHTER AT BEDSIDE.ALL NEEDS MET. ALL SAFETY MEASURES MAINTAINED, HOB ELEVATED TO ENSURE OPEN AIRWAY AND PREVENT ASPIRATION. BED LOCKED IN LOWEST POSITION, S/R UP X 3, BED ALARM ON, CALL LIGHT WITHIN REACH, ENDORSED TO DIRECTOR SCRIPT RN
[2021-12-13] MEDS: GUAIFENESIN 300 MG/15 ML UDC PO PRN (21:15)
[2021-12-13] MEDS: IBUPROFEN 400 MG TABLET PO PRN (21:15)
[2021-12-13] MEDS: ATORVASTATIN 40 MG TABLET PO SCH (21:15)
[2021-12-13] MEDS: LATANOPROST EYE DROP 0.005% 2.5 ML BOTTLE EACHEYE SCH (22:06)
[2021-12-13] MEDS: TEMAZEPAM 15 MG CAPSULE PO PRN (23:45)
[2021-12-14] VITALS: BP 142/77
[2021-12-14] MEDS: ALBUTEROL FS 2.5 MG/3 ML VIAL.NEB NEB SCH ×7 (00:17→23:40)
--- NOTE | 2021-12-14 02:45 | NUR ---
RN NOTES ENDORSED PATIENT TO ALLEGRA VICTORIA FOR BRIGHT. PATIENT ASLEEP AND NO SOB AT THIS TIME.
[2021-12-14 04:00] VITALS: BP 132/70
[2021-12-14] MEDS: PANTOPRAZOLE 40 MG TABLET.DR PO SCH (07:22)
[2021-12-14] MEDS: ALPRAZOLAM 0.25 MG TABLET PO PRN ×2 (07:23→21:37)
[2021-12-14 07:37] LABS: HEMATOCRIT 35 % (33-45); HEMOGLOBIN 10.7 g/dL (11.5-14.8); LYMPHOCYTES # (AUTO) 0.3 K/uL (0.8-4.8); LYMPHOCYTES % (AUTO) 2.7 % (20.0-44.0); MEAN CORPUSCULAR HGB CONC 31 g/dl (31.0-36.0); MEAN CORPUSCULAR VOLUME 89 fL (82-100); MONOCYTES # (AUTO) 0.4 K/uL (0.1-1.30); MONOCYTES % (AUTO) 3.7 % (2.0-12.0); NEUTROPHILS # (AUTO) 10.5 K/uL (1.8-8.9); NEUTROPHILS % (AUTO) 93.6 % (43.0-81.0); PLATELET COUNT (AUTO) 121 K/uL (150-450); RED BLOOD CELL COUNT(AUTO) 3.91 MIL/uL (4.0-5.2); WHITE BLOOD COUNT (AUTO) 11.2 K/uL (4.3-11.0)
[2021-12-14] MEDS: BUDESONIDE RESPULE INH 0.5 MG/2 ML AMPUL.NEB IH SCH ×2 (07:43→15:00)
--- NOTE | 2021-12-14 07:54 | NUR ---
RN OPENING NOTE RECEIVED PT AWAKE SITTING IN BED. AO X 4, ON NC AT 2-6LPM. SATING AT ABOVE 92%%.VERBALLY RESPONSIVE. ABLE TO MAKE NEEDS KNOWN. PT THEO GONZALEZ G18 ON SL. PATENT AND INTACT, FLUSHING WELL. PT ON TELE MONITOR SINUS TACHYCARDIA 120. ALL SAFETY MEASURES MAINTAINED, HOB ELEVATED TO ENSURE OPEN AIRWAY AND PREVENT ASPIRATION. BED LOCKED IN LOWEST POSITION, S/R UP X 3, BED ALARM ON, CALL LIGHT WITHIN REACH.BEDSIDE TABLE WITHIN REACH
[2021-12-14 08:00] VITALS: BP 133/77
[2021-12-14 08:20] LABS: CALCIUM, SERUM 8.3 mg/dL (8.5-10.1); CARBON DIOXIDE 32 mmol/L (21-32); CHLORIDE 107 mmol/L (98-107); CREATININE 1.5 mg/dL (0.6-1.3); GLUCOSE 233 mg/dL (74-106); PHOSPHORUS 3.7 mg/dL (2.5-4.9); POTASSIUM 5.1 mmol/L (3.5-5.1); SODIUM SERUM 144 mmol/L (136-145); UREA NITROGEN, BLOOD 29 mg/dL (7-18)
[2021-12-14] MEDS: ASPIRIN 81 MG TAB.CHEW PO SCH (08:48)
[2021-12-14] MEDS: ALLOPURINOL 100 MG TABLET PO SCH (08:48)
[2021-12-14] MEDS: methylPREDNISolone SOD SUCC 40 MG/ML VIAL IV SCH ×2 (08:48→21:05)
[2021-12-14] MEDS: FAMOTIDINE (20 MG) 20 MG TABLET PO SCH (08:48)
[2021-12-14] MEDS: ENOXAPARIN SODIUM 30 MG/0.3 ML DISP.SYRIN SQ SCH (10:00)
[2021-12-14] MEDS: DOCUSATE SODIUM 100 MG CAPSULE PO SCH (10:25)
[2021-12-14 12:00] VITALS: BP 129/71
--- NOTE | 2021-12-14 13:29 | NUR ---
rn note notified that pt wants to go home with hospice care. talked to patient and referred a hospice care
--- NOTE | 2021-12-14 15:49 | NUR ---
rn note notified that potassium is 5.1. said ok to repeat labs tomorrow. might be discharged to hospice today or tomorrow
[2021-12-14 16:00] VITALS: BP 119/72
--- NOTE | 2021-12-14 18:50 | NUR ---
RN CLOSING NOTE PT AWAKE SITTING IN BED. AO X 4, ON NC AT 2-6LPM. SATING AT ABOVE 92%%.VERBALLY RESPONSIVE. ABLE TO MAKE NEEDS KNOWN. PT THEO ML G18 ON SL. PATENT AND INTACT, FLUSHING WELL. PT ON TELE MONITOR SINUS TACHYCARDIA/SINUS RHYTM. ALL SAFETY MEASURES MAINTAINED, HOB ELEVATED TO ENSURE OPEN AIRWAY AND PREVENT ASPIRATION. BED LOCKED IN LOWEST POSITION, S/R UP X 3, BED ALARM ON, CALL LIGHT WITHIN REACH.BEDSIDE TABLE WITHIN REACH.WILL ENDORSE TO ELECTRICIAN HELPER RN FOR CONTINUITY OF CARE
--- NOTE | 2021-12-14 18:55 | NUR ---
RN CLOSING NOTE PT AWAKE SITTING IN BED. AO X 4, ON NC AT 6LPM. SATING AT ABOVE 99%%.VERBALLY RESPONSIVE. PT HIGH FOWLERS POSITION. ABLE TO MAKE NEEDS KNOWN. PT THEO ML G18 ON SL. PATENT AND INTACT, FLUSHING WELL. PT ON TELE MONITOR SINUS TACHYCARDIA AT 106. ALL SAFETY MEASURES MAINTAINED, HOB ELEVATED TO ENSURE OPEN AIRWAY AND PREVENT ASPIRATION. BED LOCKED IN LOWEST POSITION, S/R UP X 3, BED ALARM ON, CALL LIGHT WITHIN REACH.BEDSIDE TABLE WITHIN REACH.WILL ENDORSE TO SWITCH TENDER RN FOR CONTINUITY OF CARE
--- NOTE | 2021-12-14 19:30 | NUR ---
RN NOTE PATIENT IN BED, AO X 4, IN NO ACUTE DISTRESS, APPEARS SHORT OF BREATH, SATURATION AT 92% ON 6L VIA NC, SR ON THE MONITOR, HR IS 68. THEO MIDLINE PATENT AND FLUSHING WELL, SALINE LOCKED. SAFETY MEASURES IN PLACE, HOB ELEVATED. WILL CONT TO MONITOR AND REASSESS.
[2021-12-14 20:00] VITALS: BP 129/79
[2021-12-14] MEDS: ATORVASTATIN 40 MG TABLET PO SCH (21:05)
[2021-12-14] MEDS: LATANOPROST EYE DROP 0.005% 2.5 ML BOTTLE EACHEYE SCH (21:11)
[2021-12-14] MEDS: TEMAZEPAM 15 MG CAPSULE PO PRN (23:59)
[2021-12-15] VITALS: BP 136/84
[2021-12-15] MEDS: ALBUTEROL FS 2.5 MG/3 ML VIAL.NEB NEB SCH ×3 (03:30→11:27)
[2021-12-15 04:00] VITALS: BP 136/91
--- NOTE | 2021-12-15 07:30 | NUR ---
RN OPENING NOTE RECEIVED PT AWAKE SITTING IN BED. AO X 4, ON NC AT 6LPM. O2 SAT 96%.VERBALLY RESPONSIVE. ABLE TO MAKE NEEDS KNOWN. PT THEO MIDLINE PULLED OUT. PT ON TELE MONITOR SINUS TACHYCARDIA 100. ALL SAFETY MEASURES MAINTAINED, HOB ELEVATED TO ENSURE OPEN AIRWAY AND PREVENT ASPIRATION. BED LOCKED IN LOWEST POSITION, S/R UP X 3, BED ALARM ON, CALL LIGHT WITHIN REACH.BEDSIDE TABLE WITHIN REACH
[2021-12-15 08:00] VITALS: BP 133/89
[2021-12-15] MEDS: BUDESONIDE RESPULE INH 0.5 MG/2 ML AMPUL.NEB IH SCH (08:09)
[2021-12-15] MEDS: PANTOPRAZOLE 40 MG TABLET.DR PO SCH (08:11)
[2021-12-15] MEDS: DOCUSATE SODIUM 100 MG CAPSULE PO SCH (08:11)
[2021-12-15] MEDS: ALLOPURINOL 100 MG TABLET PO SCH (08:11)
[2021-12-15] MEDS: methylPREDNISolone SOD SUCC 40 MG/ML VIAL IV SCH (08:11)
[2021-12-15] MEDS: FAMOTIDINE (20 MG) 20 MG TABLET PO SCH (08:11)
[2021-12-15] MEDS: ASPIRIN 81 MG TAB.CHEW PO SCH (08:12)
--- NOTE | 2021-12-15 09:30 | NUR ---
RN NOTES DUE MEDS GIVEN PT'S IV PULLED OUT AND STATED, SHE DOESNT KNOW WHAT HAPPENED. REFUSED TO HAVE ANOTHER IV INSERTION
[2021-12-15] MEDS: ENOXAPARIN SODIUM 30 MG/0.3 ML DISP.SYRIN SQ SCH (09:33)
[2021-12-15 12:00] VITALS: BP 138/72
[2021-12-15] MEDS ORDERED: PNEUMOCOCCAL 23-VAL P-SAC VAC 0.5 ML VIAL SQ ONE (14:30)
[2021-12-15] MEDS: ALPRAZOLAM 0.25 MG TABLET PO PRN (15:28)
--- NOTE | 2021-12-15 15:37 | NUR ---
RN NOTES PATIENT DISCHARGED TO HOME WITH HOSPICE PER MD STABLE FOR NOW. PROVIDED DC INSTRUCTIONS , HEALTH TEACHINGS AND LIST OF MEDICATIONS. PER MD, HOSPICE TO TAKE CARE OF MEDICATIONS. NO IV ACCESS. ALL BELONGINGS CHECKED AND RETURNED. ALL PAPER WORKS SIGNED. PATIENT TO BE PICKED UP BY AMBULANCE TO TRANSPORT TO HOME.
--- NOTE | 2021-12-15 16:16 | NUR ---
RN NOTES PATIENT TRANSPORTED TO HOME ON CONTINUOUS OXYGEN AT 8L VIA SIMPLE MASK VIA AMBULANCE.
[2021-12-15] MEDS ORDERED: PRED5TAB48 PO (16:26)
== END 2021-12-15 16:09 | disposition hospice, home (50) | DRG 196 ==
LOC: ER 11-30 00:14 → TRANSITION 11-30 03:20 → TELE1 11-30 10:51 → MEDSG1 11-30 16:17 → TELE1 12-02 20:28
PROVIDERS: ADMIT Internal Medicine; ATTEND Student in an Organized Health Care Education/Training Program
PROC: 05HA33Z Insertion of Infusion Device into Left Brachial Vein, Percutaneous Approach (ICD-10-PCS; principal; 2021-12-08)
DX: J84.112 Idiopathic pulmonary fibrosis (principal); J96.21 Acute and chronic respiratory failure with hypoxia; N17.0 Acute kidney failure with tubular necrosis; A05.9 Bacterial foodborne intoxication, unspecified; E86.0 Dehydration; Z20.822 Contact with and (suspected) exposure to COVID-19; N18.9 Chronic kidney disease, unspecified; I12.9 Hypertensive chronic kidney disease with stage 1 through stage 4 chronic kidney disease, or unspecified chronic kidney disease; Z79.899 Other long term (current) drug therapy; F41.9 Anxiety disorder, unspecified; K21.9 Gastro-esophageal reflux disease without esophagitis; E78.5 Hyperlipidemia, unspecified; M10.9 Gout, unspecified; Z79.51 Long term (current) use of inhaled steroids; Z99.81 Dependence on supplemental oxygen; Z79.82 Long term (current) use of aspirin; E11.22 Type 2 diabetes mellitus with diabetic chronic kidney disease
CPT/HCPCS: 36410; 36415; 36600; 71045-TC; 76770-TC; 80048-TC; 80053-TC; 80076-TC; 82803-TC; 83605-TC; 83690-TC; 83735-TC; 84100-TC; 84443-TC; 85025-TC; 87040-TC; 87081-TC; 90732; 94760-TC; 94762-TC; 94799-TC; 97112-TC; 97116-TC; 97530-TC; C9803; G0378; J1644; J1650; J1885; J1940; J1956; J2270; J2405; J2920; J3490; J7030